=== PATIENT | male | born 1930 | race Caucasian/White ===

== ENCOUNTER 2016-05-09 02:34 | Inpatient (IN) | payer MEDICARE, BC ==
[~2016-05-09] VITALS: Ht 180.3 cm; Wt 89.6 kg
[~2016-05-09 02:34] MED LIST: AMBIEN CR 6.26.25 MG PO; APRESOLINE50 MG PO; ASPIRIN81 MG PO; CALCI-CHEW1 TAB.CHEW PO; CALCIUM 500 + D1 TAB PO; COZAAR50 MG PO; DUONEB 2.5-0.5 M3 ML UPD; FERROCITE PLUS1 TAB PO; FISH OIL 1,0001 CA1 PO; FLOMAX0.4 MG PO; HUMULIN R100 U/ML SC; HYDRALAZINE HCL50 MG; HYDRALAZINE HCL50 MG PO; LANTUS INSULIN10 ML SC; LASIX40 MG PO; LEVAQUIN250 MG PO; LEXAPRO20 MG PO; LIPITOR40 MG PO; MELATONIN 3 MG1 TAB PO; MULTIPLE VITAMI1 TA1 PO; NEXIUM40 MG; NEXIUM40 MG PO; NORVASC5 MG PO; PERCOCET 5/3251 TA1 PO; PROZAC10 MG PO; PROZAC20 MG PO; ROZEREM8 MG PO; SINEQUAN50 MG PO; STOOL SOFTENER250 MG PO; SUPER B COMPLE150 MG PO; THIAMINE HCL50 MG PO; TRAZODONE HCL50 MG PO; ULTRAM50 MG PO; VITAMIN B-1000 MCG/M SQ
[2016-05-09 03:09] LABS: BASOPHILS 0.1 % (0.0-2.0); EOSINOPHILS 0.4 % (0-7); HEMATOCRIT 34.8 % (42.0-54.0); HEMOGLOBIN 11.7 g/dL (13.5-17.5); IMMATURE GRANULOCYTES 0.4 % (0-5); MCH 31.3 pg (26.0-34.0); MCHC 33.6 g/dL (31.0-37.0); MEAN PLATELET VOLUME 9.1 fL (7.4-10.4); MONOCYTES 3.6 % (2-11); NEUTROPHILS 91.5 % (40-80); PLATELET COUNT 160 10x3/uL (130-400); RBC 3.74 10x6/uL (4.20-6.10); RDW 13.2 % (11.5-14.5); WBC 19.8 10x3/uL (4.8-10.8)
[2016-05-09 03:19] LABS: ALBUMIN 2.9 g/dL (3.4-5.0); ANION GAP 14.4 mmol/L (8-16); BILIRUBIN - TOTAL 0.46 mg/dL (0.2-1.3); CALCIUM 8.8 mg/dL (8.5-10.1); CARBON DIOXIDE 24.6 mmol/L (21.0-32.0)
[2016-05-09 03:27] LABS: TROPONIN-I 0.025 ng/mL (0.000-0.060)
[2016-05-09 03:50] LABS: APPEARANCE CLEAR (CLEAR); BILIRUBIN NEGATIVE (NEGATIVE); COLOR YELLOW (YELLOW); GLUCOSE 50 mg/dL (NEGATIVE); KETONE NEGATIVE (NEGATIVE); LEUKOCYTE ESTERASE TRACE (NEGATIVE); NITRITE NEGATIVE (NEGATIVE); PH 5.5 (5.0-6.0); PROTEIN 3+ mg/dL (NEGATIVE); UROBILINOGEN NORMAL (NORMAL)
[2016-05-09 03:56] LABS: BACTERIA FEW /hpf (NONE SEEN); EPITHELIAL CELLS 0-5 /hpf (0-5); GRANULAR CAST OCC /lpf (NONE SEEN); HYALINE CAST OCC /lpf (NONE SEEN); RED CELLS - URINE 0-5 /hpf (0-5)
[2016-05-09 04:00] VITALS: BP 181/70
--- NOTE | 2016-05-09 05:07 | NUR ---
RECEIVED FROM ER. PT HAS LEVOFLAXIN INFUSING , IV-L.UPPER ARM, O2-2L, AT BEDSIDE, CALL LIGHT IN REACH, BED IS LOW, SRX2,[id number]/70, P-85, O2-98, R-20, WILL CONTINUE TO MONITOR
[2016-05-09] MEDS ORDERED: LASIX40 MG PO (05:18)
[2016-05-09] MEDS ORDERED: LANTUS SOL100 UNIT/1 SC (05:19)
[2016-05-09] MEDS ORDERED: MELATONIN 10 M1 EACH PO (05:20)
[2016-05-09] MEDS ORDERED: PRAVACHOL40 MG PO (05:21)
[2016-05-09] MEDS ORDERED: NORTRIPTYLINE H50 MG PO (05:21)
[2016-05-09] MEDS ORDERED: VITAMIN B-1100 M1 PO (05:22)
--- NOTE | 2016-05-09 05:59 | NUR ---
NO CHANGES FROM PREVIOUS ASSESSMENT, CALL LIGHT IN REACH. WILL CONTINUE WITH PLAN OF CARE.
--- NOTE | 2016-05-09 06:20 | NUR ---
SCD ON BILATERAL LEGS, TELEMTRY ON, BED ALARM ON, WILL CONTINUE TO MONITOR
--- NOTE | 2016-05-09 07:30 | NUR ---
RESTING QUIETLY DENIES ANY NEEDS OR DISCOMFORT
--- NOTE | 2016-05-09 07:59 | NUR ---
ASSESSMENT DONE. PT A/O, WATCHING TV. DENIES SOB. WEARING O2 @ 2L VIA NC. WEARING SCD'S. PT ASKED IF HE COULD "GET UP" WITH SCD'S ON. NURSE INSTRUCTED PT TO CALL BEFORE ATTEMPTING TO GET OUT OF BED. BED ALARM ON. PT DENIES NEEDS AT THIS TIME. CALL LIGHT WITH IN REACH. WILL CONT. TO MONITOR.
[2016-05-09 08:15] VITALS: BP 165/74
--- NOTE | 2016-05-09 11:23 | NUR ---
PT LAYING IN BED WATCHING TV. HOB SLIGHTLY ELEVATED. PT STATES "THE IN THE ER SAID I WOULD BE OUT OF HERE BY 4:OO TODAY." PT STATES "I CAN'T DO THIS MUCH LONGER." HE WANTS TO GO HOME. NURSE EMPTIED URINAL, AND ASSISTED PT WITH ADJUSTING HIMSELF IN BED. DENIES OTHER NEEDS AT THIS TIME. CALL LIGHT WITH IN REACH. WILL CONT. TO MONITOR.
[2016-05-09 12:05] VITALS: BP 168/61
--- NOTE | 2016-05-09 14:44 | NUR ---
NOTIFIED PT OF THE URINE STUDIES THAT WERE ORDERED. NURSE TOOK NEW URINAL INTO ROOM FOR PT TO USE.
[2016-05-09 15:51] LABS: ERYTHROCYTE SEDIMENTATION RATE 30 mm/hr (0-20)
[2016-05-09 16:30] VITALS: BP 168/67
[2016-05-09 17:20] LABS: CREATININE - URINE 66.4 mg/dL (30-125)
[2016-05-09 17:22] LABS: APPEARANCE CLEAR (CLEAR); BILIRUBIN NEGATIVE (NEGATIVE); COLOR YELLOW (YELLOW); GLUCOSE NEGATIVE (NEGATIVE); KETONE NEGATIVE (NEGATIVE); LEUKOCYTE ESTERASE TRACE (NEGATIVE); NITRITE NEGATIVE (NEGATIVE); PROTEIN 1+ mg/dL (NEGATIVE); UROBILINOGEN NORMAL (NORMAL)
[2016-05-09 17:25] LABS: BACTERIA FEW /hpf (NONE SEEN); RED CELLS - URINE 0-5 /hpf (0-5)
--- NOTE | 2016-05-09 17:33 | NUR ---
PT LAYING IN BED. AWAKE AND VISITING WITH FAMILY. NO DISTRESS NOTED. CALL LIGHT WITH IN REACH. WILL CONT. TO MONITOR.
[2016-05-09 17:37] LABS: PRO/CRE RATIO URINE 6.1 mg/g; PROTEIN - URINE 402.1 mg/dL (0.0-11.9)
--- NOTE | 2016-05-09 19:43 | NUR ---
RESUMED CARE OF PT, IV-L. UPPER ARM-BANANA BAG -50, [id number], SCD ARE ON, BED ALARM ON, CALL LIGHT IN REACH, BED IS LOW, SRX2
[2016-05-09 21:09] VITALS: BP 188/90
[2016-05-09 23:48] VITALS: BP 169/67
--- NOTE | 2016-05-10 03:55 | NUR ---
AWAKE VOIDED 500 CC OF CLEAR URINE. NO DISTRESS NOTED.
[2016-05-10 05:07] LABS: BASOPHILS 0.2 % (0.0-2.0); EOSINOPHILS 0.9 % (0-7); HEMATOCRIT 35.8 % (42.0-54.0); HEMOGLOBIN 11.9 g/dL (13.5-17.5); IMMATURE GRANULOCYTES 0.3 % (0-5); LYMPHOCYTES 6.2 % (15-50); MCH 31.2 pg (26.0-34.0); MCHC 33.2 g/dL (31.0-37.0); MEAN PLATELET VOLUME 9.7 fL (7.4-10.4); MONOCYTES 6.3 % (2-11); NEUTROPHILS 86.1 % (40-80); PLATELET COUNT 172 10x3/uL (130-400); RBC 3.81 10x6/uL (4.20-6.10); RDW 13.5 % (11.5-14.5)
[2016-05-10 05:12] VITALS: BP 130/68
[2016-05-10 05:12] LABS: ANION GAP 14.8 mmol/L (8-16); CALCIUM 9.2 mg/dL (8.5-10.1); CARBON DIOXIDE 25.5 mmol/L (21.0-32.0); CREATININE - SERUM 2.7 mg/dL (0.6-1.3)
[2016-05-10 05:13] LABS: POTASSIUM - SERUM 3.3 mmol/L (3.5-5.1)
--- NOTE | 2016-05-10 07:00 | NUR ---
PT. WAS RECEIVED AT THE BEGINNING OF THIS SHIFT IN BED AWAKE AND ORIENTED X 3. AT BEDSIDE. LEFT UPPER ARM IV WITH FLUIDS RUNNING PER PUMP AT PRESCRIBED RATE OF FLOW. NO VOICED COMPLAINTS AT THIS TIME. WILL BE MONITORING PT. AND ASSISTING PRN WITH ADL'S. NO SIGNS OF ANY DISCOMFORT OR DISTRESS.
[2016-05-10 08:31] VITALS: BP 178/83
[2016-05-10 11:42] VITALS: BP 173/64
[2016-05-10 13:34] VITALS: Ht 180.3 cm; Wt 89.6 kg
--- NOTE | 2016-05-10 13:44 | NUR ---
Rehab Note- Prescreen Order received. Spoke with the patient & his . The patient is interested in doing outpatient therapy but does not want to stay in the hospital for therapy. Spoke with MARY- Maggie [facility] Earl. Thank you for this referral! Karly Moran RN Clinical Liaison, [facility]
--- NOTE | 2016-05-10 14:15 | NUR ---
PT'S IV FLUIDS HAVE BEEN DC'D. PT IS READY TO GO HOME AND ASKS THE SAME QUESTION EACH TIME HE SEES ME, "WHEN AM I BEING DISCHARGED"
[2016-05-10 14:22] LABS: SPE - ALBUMIN 3.2 g/dL (2.9-4.4); SPE - ALPHA-1 GLOBULIN 0.3 g/dL (0.0-0.4); SPE - ALPHA-2 GLOBULIN 0.9 g/dL (0.4-1.0); SPE - BETA GLOBULIN 1.1 g/dL (0.7-1.3); SPE - GAMMA GLOBULIN 0.9 g/dL (0.4-1.8); SPE - M-SPIKE Not Observed g/dL (Not Observed); SPE - TOTAL PROTEIN 6.3 g/dL (6.0-8.5)
[2016-05-10 15:51] VITALS: BP 181/86
--- NOTE | 2016-05-10 17:50 | NUR ---
SPOKE WITH FILIPPO ROSAS APN REGARDING RESULTS OF CAROTID DOPPLER PER [facility] REQUEST FOR NEED OF CTA CAROTIDS. FILIPPO STATES SHE WILL LET DR. ANGELO KNOW BUT, SHE FELT LIKE HE WOULD NOT WANT CTA AT THIS TIME DUE TO CREATININE.
[2016-05-10 19:00] VITALS: BP 140/72
--- NOTE | 2016-05-10 19:30 | NUR ---
RECEIVED PT IN BED WATCHING TV DENIES ANY NEEDS PT HAS MODERATE ANXIETY AT BEDSIDE
--- NOTE | 2016-05-10 20:01 | NUR ---
ATIVAN 0.5 MG GIVEN SIVP FOR ANXIETY
--- NOTE | 2016-05-10 21:45 | NUR ---
FSBS 170 2 UNITS OF HUMALOG GIVEN SQ TO ABD
[2016-05-11] VITALS: BP 139/76
[2016-05-11 04:00] VITALS: BP 161/61
[2016-05-11 05:47] LABS: BASOPHILS 0.2 % (0.0-2.0); EOSINOPHILS 2.9 % (0-7); HEMATOCRIT 37.4 % (42.0-54.0); HEMOGLOBIN 12.3 g/dL (13.5-17.5); IMMATURE GRANULOCYTES 0.3 % (0-5); LYMPHOCYTES 7.3 % (15-50); MCH 31.3 pg (26.0-34.0); MCHC 32.9 g/dL (31.0-37.0); MCV 95.2 fL (80.0-100.0); MEAN PLATELET VOLUME 9.4 fL (7.4-10.4); NEUTROPHILS 82.3 % (40-80); PLATELET COUNT 183 10x3/uL (130-400); RBC 3.93 10x6/uL (4.20-6.10); RDW 13.5 % (11.5-14.5); WBC 12.5 10x3/uL (4.8-10.8)
[2016-05-11 05:54] LABS: ANION GAP 14.6 mmol/L (8-16); CALCIUM 9.4 mg/dL (8.5-10.1); CARBON DIOXIDE 25.2 mmol/L (21.0-32.0); CREATININE - SERUM 2.7 mg/dL (0.6-1.3); MAGNESIUM - SERUM 2.2 mg/dL (1.8-2.4); PHOSPHOROUS 3.5 mg/dL (2.5-4.9)
[2016-05-11 05:56] LABS: POTASSIUM - SERUM 3.8 mmol/L (3.5-5.1)
--- NOTE | 2016-05-11 06:04 | NUR ---
GLUCOSE 145
[2016-05-11 07:39] VITALS: BP 155/65
--- NOTE | 2016-05-11 08:49 | NUR ---
ENTERED ROOM TO GIVE MEDS, FOUND PATIENT CHOKING ON FOOD. SAT PATIENT UP IN BED. PATIENT COUGHING BUT UNABLE TO BE PRODUCTIVE. SUCTIONED PATIENT WITH YANKAUER AND OBTAINED YELLOW THICK SPUTUM. WILL SEE ABOUT SWALLOWING EVAL.
--- NOTE | 2016-05-11 11:30 | NUR ---
Patient Name: ELSA IRVING Admission Status: ER Accout number: [id number] Admission Date: 05-09-2016 : 1930 Admission Diagnosis: Attending: MAMTA Current LOS: 2 Anticipated DC Date: Planned Disposition: Home with Home Health Primary Insurance: MEDICARE A & B Discharge Planning Comments: * Is the patient Alert and Oriented? Yes 0 * How many steps to enter\exit or inside your home? 1 0 * PCP DR. TABARES 0 * Pharmacy [facility] 0 * Preadmission Environment Home with Family 0 * ADLs Partial Dependent 0 * Partial ADLs (Assistance needed) Medication Management 0 * Equipment Cane CPAP Oxygen Rolling Walker Walker 0 * Other Equipment NIGHTTIME OXYGEN ONLY [facility], MEDICAL EQUIPMENT PROVIDER 0 * List name and contact numbers for known caregivers / representatives who currently or will assist patient after discharge: MARYANA IRVING, SPOUSE, 0 * Community resources currently utilized None 0 * Please name any agencies selected above. NONE 0 * Additional services required to return to the preadmission environment? Yes * Can the patient safely return to the preadmission environment? Yes 0 * Has this patient been hospitalized within the prior 30 days at any hospital? No 0 CM MET WITH PT AND SPOUSE IN ROOM TO DISCUSS DISCHARGE PLANNING AND NEEDS. PT REPORTS LIVING AT HOME PARTIALLY DEPENDENT UPON HIS SPOUSE. PT REPORTS HAVING ALL NEEDED MEDICAL EQUIPMENT PROVIDED BY [facility]. PT HAS NO CURRENT OUTSIDE SERVICES ASSISTING IN THE HOME. CM DISCUSSED AVAILABILITY OF HOME HEALTH, REHAB SERVICES AND MEDICAL EQUIPMENT. CM DISCUSSED ORDER FOR INPATIENT OR NURSING HOME RHEAB. PT REPORTS HE IS NOT GOING TO NURSING HOME REHAB NOR INPATIENT REHAB. PT'S SPOUSE ENCOURAGE PT TO CONSIDER REHAB PRIOR TO RETURNING HOME, PT REFUSED. PT WILL ACCEPT HOME HEALTH, CHOSE [facility]; CHOICE SIGNED. PT REPORTS HIS SPOUSE WILL PICK HIM UP FOR DISCHARGE HOME. IMPORTANT MESSAGE FROM MEDICARE PROVIDED AND EXPLAINED. PT REFUSES NURSING HOME OR INPATIENT REHAB. HE WILL ACCEPT HOME HEALTH WITH [facility]. CM TO ARRANGE HOME HEALTH WITH [facility] ORDERS. CM WILL ALSO ARRANGE PORTABLE OXYGEN WITH [facility], IF QUALIFYING TESTING IS PERFORMED WITHIN 48 HOURS OF DISCHARGE AND WITH [facility] ORDER. (PT HAS HOME OXYGEN, NO PORTABLE). CM TO CONTINUE TO FOLLOW AND ASSIST NEEDED. Proposal Manager Writer: Romain Noel
[2016-05-11 11:38] VITALS: BP 162/78
--- NOTE | 2016-05-11 13:31 | NUR ---
PLACED 16F COTTON TO GRAVITY DRAIN PER ORDER. INFLATED BALLOON WITH 10CC SALINE. USED STERILE TECHNIQUE. A RETURN OF 60CC CLEAR YELLOW URINE NOTED. TOLERATED WELL
[2016-05-11 15:25] VITALS: BP 147/64
--- NOTE | 2016-05-11 17:23 | NUR ---
AT BEDSIDE. WILL CONTINUE TO MONITOR
--- NOTE | 2016-05-11 18:12 | NUR ---
RESUME CARE OF PT, IV-LFA-SL, CHECK BLOODSUGAR 124-NO COVERAGE NEEDED, AT BEDSIDE, PT HAS COTTON, CALL LIGHT IN REACH, BED IS LOW, SRX2
--- NOTE | 2016-05-11 19:27 | NUR ---
COTTON BAD HAD LEAK, REPLACE BAG
[2016-05-11 20:08] LABS: UPE RAND - ALBUMIN 64.9 % (()); UPE RAND - ALPHA 1 GLOBULIN 8.1 % (()); UPE RAND - ALPHA 2 GLOBULIN 6.3 % (()); UPE RAND - BETA GLOBULIN 10.8 % (())
[2016-05-11 22:54] VITALS: BP 154/72
[2016-05-12 00:30] VITALS: BP 163/70
--- NOTE | 2016-05-12 01:31 | NUR ---
LYING IN BED, CALL LIGHT IN REACH. WILL CONTINUE WITH PLAN OF CARE.
--- NOTE | 2016-05-12 04:32 | NUR ---
IV ANTIBONIC IN FUSING
[2016-05-12 05:23] VITALS: BP 157/74
[2016-05-12 05:59] LABS: BASOPHILS 0.2 % (0.0-2.0); EOSINOPHILS 3.6 % (0-7); HEMATOCRIT 35.4 % (42.0-54.0); HEMOGLOBIN 11.7 g/dL (13.5-17.5); IMMATURE GRANULOCYTES 0.2 % (0-5); LYMPHOCYTES 7.2 % (15-50); MCH 31.5 pg (26.0-34.0); MCHC 33.1 g/dL (31.0-37.0); MCV 95.4 fL (80.0-100.0); MEAN PLATELET VOLUME 9.3 fL (7.4-10.4); MONOCYTES 8.7 % (2-11); NEUTROPHILS 80.1 % (40-80); PLATELET COUNT 186 10x3/uL (130-400); RBC 3.71 10x6/uL (4.20-6.10); RDW 13.5 % (11.5-14.5); WBC 11.3 10x3/uL (4.8-10.8)
[2016-05-12 06:31] LABS: ANION GAP 14.2 mmol/L (8-16); CALCIUM 9.4 mg/dL (8.5-10.1); CARBON DIOXIDE 26.6 mmol/L (21.0-32.0); CREATININE - SERUM 2.9 mg/dL (0.6-1.3); PHOSPHOROUS 4.3 mg/dL (2.5-4.9); POTASSIUM - SERUM 3.8 mmol/L (3.5-5.1)
[2016-05-12 08:00] VITALS: BP 141/70
[2016-05-12 12:00] VITALS: BP 152/66
[2016-05-12] MEDS ORDERED: LEVAQUIN250 MG PO (15:20)
--- NOTE | 2016-05-12 15:45 | NUR ---
D/CD COTTON ORDERED.
--- NOTE | 2016-05-12 16:24 | NUR ---
Patient Name: ELSA IRVING Encounter No: [id number] : 1930 Primary Insurance: MEDICARE A & B Anticipated DC Date: 05-11-2016 Planned Disposition: Home with Home Health External Planned Provider: [facility] DCP follow-up note: CM MET WITH PT IN ROOM TO DISCUSS DISCHARGE NEEDS AND PLANNING. CM DISCUSSED AVAILABILITY OF HOME HEALTH, REHAB SERVICES AND MEDICAL EQUIPMENT. PT WANTS [facility]. SPOUSE TO TRANSPORT HOME AT DISCHARGE. HOME HEALTH ORDER OBTAINED. CM CALLED [facility], , PROVIDED REFERRAL FOR [facility] WHO WILL ARRANGE FOLLOW UP FOR MONDAY; CM FAXED REFERRAL TO [facility] AT [phone]. PT NOTIFIED. NO FURTHER DISCHARGE NEEDS IDENTIFIED. Romain Noel, CASE MANAGEMENT
--- NOTE | 2016-05-12 17:39 | NUR ---
D/C SALINE LOCK IN LT FOREARM. DISCHARGE INSTRUCTIONS EXPLAINED TO AND GIVEN TO . PT ALERT AND CONFUSED TO TIME AND SIUATION.
--- NOTE | 2016-05-12 17:58 | NUR ---
D.C HOME VIA WHEELCHAIR.
--- NOTE | 2016-06-20 12:39 | DS ---
PATIENT:ELSA IRVING :[birth year] MEDICAL RECORD: [id number] DISCHARGE SUMMARY ADMISSION DATE: 05/09/16 DISCHARGE DATE: 05/12/16 DISCHARGE DIAGNOSES: 1. Diabetic nephropathy. 2. DT. 3. Pneumonia. 4. Leukocytosis. 5. Urinary tract infection. 6. Obstructive sleep apnea. 7. Elevated D-dimer. 8. Chronic obstructive pulmonary disease. 9. Coronary artery disease. 10. Chronic kidney disease IV. 11. Hypertension. CONSULTS: Dr. De La Garza. HOSPITAL COURSE: This 85-year-old male patient with chronic kidney disease IV was admitted to the hospital with shortness of breath and thought to have pneumonia. He had an elevated creatinine up to 3, his baseline is around 2. Nephrology was consulted. He was treated with IV fluids and antibiotics. He had a little prerenal azotemia in lieu of his infectious process. Dr. Hernadez was consulted during the patient's hospitalization with some carotid artery stenosis. They underwent a swallow evaluation and it did not show any dysphagia. Chest x-ray showed mild vascular congestion. Renal ultrasound showed 160 cc of residual urine with some poor definition in the renal cortex consistent with chronic renal changes but no evidence of hydronephrosis. The carotid Dopplers showed a prominent plaque in the right carotid at about 70 percent. The venous Dopplers were negative for DVTs. MRA of the neck showed significant stenosis in the right ICA at least 60%. 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 His condition improved and he was thought to be stable for discharge to home with home health. The patient's creatinine was too high for a CTA. Once his creatinine had improved, they would do it in the outpatient setting to discuss possible surgical options. He was stable for discharge to the nursing help and rehabilitation. See med rec. TRANSINT:[id number] Voice Confirmation ID: [id number] DOCUMENT ID: [id number] Dictated By: ULISSES TATE I have interviewed/examined the above patient and agree with these documented findings. KETTY WILSON MD at 1233 at 1238 CC: [id number] DICTATION DATE: 06/16/16 0838 BUSINESS ANALYST PROJECT MANAGER: 06/17/16 0005 DIS IN 05/12/16 [facility] [address] [place] [address]
== END 2016-05-12 17:45 | disposition home health service (06) | DRG 190 ==
LOC: D.ER 02:34 → D.M2 04:14
PROVIDERS: Family Medicine; Internal Medicine Nephrology; ADMIT Family Medicine
PROC: 0T9B70Z Drainage of Bladder with Drainage Device, Via Natural or Artificial Opening (ICD-10-PCS; principal; 2016-05-11)
DX: J44.0 Chronic obstructive pulmonary disease with (acute) lower respiratory infection (principal); J18.9 Pneumonia, unspecified organism; N17.9 Acute kidney failure, unspecified; N39.0 Urinary tract infection, site not specified; N18.4 Chronic kidney disease, stage 4 (severe); R41.82 Altered mental status, unspecified; J44.9 Chronic obstructive pulmonary disease, unspecified; I65.21 Occlusion and stenosis of right carotid artery; E11.22 Type 2 diabetes mellitus with diabetic chronic kidney disease; I12.9 Hypertensive chronic kidney disease with stage 1 through stage 4 chronic kidney disease, or unspecified chronic kidney disease; Z72.89 Other problems related to lifestyle; G47.33 Obstructive sleep apnea (adult) (pediatric); F32.9 Major depressive disorder, single episode, unspecified

== ENCOUNTER → 2016-06-09 08:36 | Outpatient (CLI) | payer MEDICARE, BC ==
[2016-05-10 13:34] VITALS: BMI 30.3
[~2016-06-09 08:36] MED LIST changes: +LANTUS SOL100 UNIT/1 SC; +MELATONIN 10 M1 EACH PO; +NORTRIPTYLINE H50 MG PO; +PRAVACHOL40 MG PO; +VITAMIN B-1100 M1 PO
== END | disposition home or self-care (01) ==
LOC: D.RAD 08:36
DX: R06.02 Shortness of breath (principal)

== ENCOUNTER 2016-08-18 17:21 | Observation (INO) | payer MEDICARE, BC ==
[~2016-08-18] VITALS: Ht 180.3 cm; Wt 106.6 kg
[2016-08-18 17:56] LABS: APPEARANCE CLEAR (CLEAR); BILIRUBIN NEGATIVE (NEGATIVE); COLOR STRAW (YELLOW); GLUCOSE 50 mg/dL (NEGATIVE); KETONE NEGATIVE (NEGATIVE); LEUKOCYTE ESTERASE NEGATIVE (NEGATIVE); NITRITE NEGATIVE (NEGATIVE); PROTEIN 3+ mg/dL (NEGATIVE); SPECIFIC GRAVITY 1.005 (1.005-1.020); UDS - AMPHET NEGATIVE QUAL (NEGATIVE); UDS - BARB NEGATIVE QUAL (NEGATIVE); UDS - BENZO NEGATIVE QUAL (NEGATIVE); UDS - COCAINE NEGATIVE QUAL (NEGATIVE); UDS - METH NEGATIVE QUAL (NEGATIVE); UDS - OPIATE NEGATIVE QUAL (NEGATIVE); UDS - PCP NEGATIVE QUAL (NEGATIVE); UDS - THC NEGATIVE QUAL (NEGATIVE); UROBILINOGEN NORMAL (NORMAL)
[2016-08-18 17:57] LABS: BACTERIA MODERATE /hpf (NONE SEEN); EPITHELIAL CELLS 0-5 /hpf (0-5); RED CELLS - URINE 0-5 /hpf (0-5); WHITE CELLS - URINE 0-5 /hpf (0-5)
[2016-08-18 17:57] LABS: BASOPHILS 0.5 % (0-2); EOSINOPHILS 3.2 % (0-7); HEMATOCRIT 31.8 % (42.0-54.0); HEMOGLOBIN 10.9 g/dL (13.5-17.5); IMMATURE GRANULOCYTES 0.6 % (0-5); LYMPHOCYTES 14.1 % (15-50); MCH 32.1 pg (26.0-34.0); MCHC 34.3 g/dL (31.0-37.0); MCV 93.5 fL (80.0-100.0); MEAN PLATELET VOLUME 8.8 fL (7.4-10.4); MONOCYTES 14.7 % (2-11); NEUTROPHILS 66.9 % (40-80); PLATELET COUNT 177 10x3/uL (130-400); RDW 13.6 % (11.5-14.5); WBC 7.9 10x3/uL (4.8-10.8)
[2016-08-18 18:16] LABS: ALBUMIN 2.8 g/dL (3.4-5.0); ANION GAP 12.6 mmol/L (8-16); BILIRUBIN - TOTAL 0.3 mg/dL (0.2-1.3); CALCIUM 8.4 mg/dL (8.5-10.1); CARBON DIOXIDE 26.2 mmol/L (21.0-32.0); CREATININE - SERUM 2.5 mg/dL (0.6-1.3); PROTEIN - SERUM 6.6 g/dL (6.4-8.2); TROPONIN-I 0.032 ng/mL (0.000-0.060)
[2016-08-18 18:19] LABS: POTASSIUM - SERUM 2.8 mmol/L (3.5-5.1)
--- NOTE | 2016-08-18 20:47 | NUR ---
REPORT RECEIVED FROM PHARMACY OPERATIONS SPECIALISTPRIMO LEOS.
[2016-08-18] MEDS ORDERED: SINEQUAN50 MG PO (21:17)
[2016-08-18] MEDS ORDERED: VENTOLIN HFA18 GM INH (21:19)
[2016-08-18] MEDS ORDERED: ALBUTEROL0.63 MG/3 (21:20)
[2016-08-18] MEDS ORDERED: PROZAC20 MG PO (21:21)
[2016-08-18] MEDS ORDERED: PROAIR HFA8.5 GM INH (21:22)
[2016-08-18] MEDS ORDERED: BROMFED-DM COU473 ML PO (21:23)
[2016-08-18 21:25] VITALS: BP 167/70; BMI 32.8
[2016-08-18 23:00] VITALS: BP 120/56
--- NOTE | 2016-08-18 23:00 | NUR ---
PT RECEIVED AWAKE, ALERT, AT BEDSIDE. PT IS CONFUSED AND VERY HARD OF HEARING. 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 DID PROVIDE CURRENT MED LIST. PT DENIES ANY NEEDS, WILL BE STAYING WITH HIM OVERNIGHT. BED LOW, CALL LIGHT IN REACH, SIDE RAILS X 2, HOB 15 DEGREES, BED ALARM ON. WILL CONTINUE TO MONITOR CLOSELY.
--- NOTE | 2016-08-19 00:52 | NUR ---
PT LYING IN BED ON RIGHT SIDE, EYES CLOSED, RESPIRATIONS EVEN AND UNLABORED. AT BEDSIDE. CONTINUE TO MONITOR CLOSELY. BED LOW, CALL LIGHT IN REACH, SIDE RAILS X 2, HOB 10 DEGREES. BED ALARM ON.
[2016-08-19 06:42] VITALS: BP 142/71
[2016-08-19 07:56] VITALS: BP 159/74
[2016-08-19 12:15] LABS: BASOPHILS 0.2 % (0-2); EOSINOPHILS 0.5 % (0-7); HEMATOCRIT 30.8 % (42.0-54.0); HEMOGLOBIN 10.7 g/dL (13.5-17.5); IMMATURE GRANULOCYTES 0.4 % (0-5); LYMPHOCYTES 9.3 % (15-50); MCH 32.7 pg (26.0-34.0); MCHC 34.7 g/dL (31.0-37.0); MCV 94.2 fL (80.0-100.0); MONOCYTES 5.3 % (2-11); NEUTROPHILS 84.3 % (40-80); PLATELET COUNT 174 10x3/uL (130-400); RBC 3.27 10x6/uL (4.20-6.10); RDW 13.6 % (11.5-14.5)
[2016-08-19 12:22] VITALS: Ht 180.3 cm; Wt 106.6 kg
[2016-08-19 12:24] LABS: ANION GAP 10.6 mmol/L (8-16); CALCIUM 8.5 mg/dL (8.5-10.1); CARBON DIOXIDE 31.1 mmol/L (21.0-32.0); CREATININE - SERUM 2.6 mg/dL (0.6-1.3)
--- NOTE | 2016-08-19 12:25 | NUR ---
ASSISTED GEOTHERMAL POWERPLANT MECHANIC IN PULLING PT UP IN BED. PT IS EATING LUNCH AND DENIES ANY CURRENT PAIN OR NEEDS BUT HIM AND HIS STATE THEY ARE READY TO BE DISCHARGED. WILL CTM AND CONTINUE WITH ORDERS.
[2016-08-19 12:26] LABS: POTASSIUM - SERUM 3.7 mmol/L (3.5-5.1)
[2016-08-19 12:38] VITALS: BP 170/75
[2016-08-19 12:40] LABS: WBC 10.2 10x3/uL (4.8-10.8)
--- NOTE | 2016-08-19 14:02 | NUR ---
PT AMBULATED WITH THERAPY USING HIS WALKER. PT WAS VERY WEAK AND SLOW BUT STAYED STEADY. PT BACK IN BED AND RESTING WITH HIS AT BEDSIDE. NO FURTHER NEEDS AT THIS TIME. WILL CPOC.
[2016-08-19 15:42] VITALS: BP 159/82
--- NOTE | 2016-08-19 16:51 | NUR ---
DISCHARGE TEACHING PROVIDED AND PAPERS SIGNED. PT AND DENY ANY FURTHER QUESTIONS OR NEEDS.
== END 2016-08-19 16:54 | disposition home or self-care (01) ==
LOC: D.ER 17:21 → OBSVTIME 19:46 → D.M2 19:46
PROVIDERS: Emergency Medicine; ADMIT Family Medicine Adult Medicine
DX: E87.6 Hypokalemia (principal); F10.129 Alcohol abuse with intoxication, unspecified; Y90.7 Blood alcohol level of 200-239 mg/100 ml; E11.22 Type 2 diabetes mellitus with diabetic chronic kidney disease; I12.9 Hypertensive chronic kidney disease with stage 1 through stage 4 chronic kidney disease, or unspecified chronic kidney disease; N18.4 Chronic kidney disease, stage 4 (severe); E11.40 Type 2 diabetes mellitus with diabetic neuropathy, unspecified; J44.9 Chronic obstructive pulmonary disease, unspecified; W19.XXXA Unspecified fall, initial encounter; Z87.891 Personal history of nicotine dependence

== ENCOUNTER → 2016-08-31 07:57 | Outpatient (CLI) | payer MEDICARE, BC ==
[2016-08-19 12:22] VITALS: BMI 32.7
[~2016-08-31 07:57] MED LIST changes: +ALBUTEROL0.63 MG/3; +BROMFED-DM COU473 ML PO; +PROAIR HFA8.5 GM INH; +VENTOLIN HFA18 GM INH
== END | disposition home or self-care (01) ==
LOC: D.RT 08-23 11:00 → D.LAB 08-23 13:00 → D.RAD 08-23 13:15 → D.RT 08-25 09:00
DX: J44.9 Chronic obstructive pulmonary disease, unspecified (principal)

== ENCOUNTER → 2016-09-23 14:30 | Outpatient (CLI) | payer MEDICARE, BC ==
[2016-08-19 12:22] VITALS: BMI 32.7
[2016-09-23 15:00] LABS: BASOPHILS 0.4 % (0-2); EOSINOPHILS 4.2 % (0-7); HEMATOCRIT 31.7 % (42.0-54.0); HEMOGLOBIN 10.8 g/dL (13.5-17.5); IMMATURE GRANULOCYTES 0.1 % (0-5); LYMPHOCYTES 15.2 % (15-50); MCH 32.6 pg (26.0-34.0); MCHC 34.1 g/dL (31.0-37.0); MCV 95.8 fL (80.0-100.0); MONOCYTES 6.7 % (2-11); NEUTROPHILS 73.4 % (40-80); PLATELET COUNT 176 10x3/uL (130-400); RBC 3.31 10x6/uL (4.20-6.10); RDW 13.1 % (11.5-14.5); WBC 7.2 10x3/uL (4.8-10.8)
[2016-09-23 16:02] LABS: ERYTHROCYTE SEDIMENTATION RATE 50 mm/hr (0-20)
== END | disposition home or self-care (01) ==
LOC: D.LAB 14:30 → D.CT 15:00
PROVIDERS: Internal Medicine Cardiovascular Disease
DX: I65.29 Occlusion and stenosis of unspecified carotid artery (principal)

== ENCOUNTER 2016-10-03 11:18 | Outpatient (CLI) | payer MEDICARE, BC ==
[~2016-10-03] VITALS: Ht 180.3 cm; Wt 104.5 kg
[2016-10-03 12:36] VITALS: BP 161/91; Ht 180.3 cm; Wt 104.5 kg
[2016-10-03] MEDS ORDERED: NAC600 MG PO (12:51)
--- NOTE | 2016-10-03 16:48 | NUR ---
1525 IV INFUSION HAS COMPLETED, TO CT VIA WC. 1540 PT.'S IV DC'D WITH CATH INTACT IN XRAY AND DC'D FROM XRAY. NO POST CT THERAPY NEEDED. PT. RELEASED FROM XRAY. DID NOT RETURN TO OPS.
== END 2016-10-03 15:40 | disposition home or self-care (01) ==
LOC: D.CT 11:18
DX: I65.23 Occlusion and stenosis of bilateral carotid arteries (principal)

== ENCOUNTER 2016-10-28 17:38 | Inpatient (IN) | payer MEDICARE, BC ==
[~2016-10-28] VITALS: Ht 180.3 cm; Wt 96.2 kg
[~2016-10-28 17:38] MED LIST changes: +NAC600 MG PO
[2016-10-28 18:07] LABS: APPEARANCE CLEAR (CLEAR); BILIRUBIN NEGATIVE (NEGATIVE); COLOR YELLOW (YELLOW); GLUCOSE NEGATIVE (NEGATIVE); KETONE NEGATIVE (NEGATIVE); LEUKOCYTE ESTERASE NEGATIVE (NEGATIVE); NITRITE NEGATIVE (NEGATIVE); PROTEIN 3+ mg/dL (NEGATIVE); SPECIFIC GRAVITY 1.015 (1.005-1.020); UROBILINOGEN NORMAL (NORMAL)
[2016-10-28 18:10] LABS: WHITE CELLS - URINE 0-5 /hpf (0-5)
[2016-10-28 18:14] LABS: UDS - AMPHET NEGATIVE QUAL (NEGATIVE); UDS - BARB NEGATIVE QUAL (NEGATIVE); UDS - BENZO NEGATIVE QUAL (NEGATIVE); UDS - COCAINE NEGATIVE QUAL (NEGATIVE); UDS - METH NEGATIVE QUAL (NEGATIVE); UDS - OPIATE NEGATIVE QUAL (NEGATIVE); UDS - PCP NEGATIVE QUAL (NEGATIVE); UDS - THC NEGATIVE QUAL (NEGATIVE)
[2016-10-28 19:00] VITALS: BP 191/86
[2016-10-28 19:15] LABS: BASOPHILS 0.4 % (0-2); EOSINOPHILS 3.4 % (0-7); HEMATOCRIT 31.7 % (42.0-54.0); HEMOGLOBIN 10.6 g/dL (13.5-17.5); IMMATURE GRANULOCYTES 0.3 % (0-5); LYMPHOCYTES 9.9 % (15-50); MCH 32.3 pg (26.0-34.0); MCHC 33.4 g/dL (31.0-37.0); MCV 96.6 fL (80.0-100.0); MEAN PLATELET VOLUME 9.3 fL (7.4-10.4); MONOCYTES 7.3 % (2-11); NEUTROPHILS 78.7 % (40-80); PLATELET COUNT 192 10x3/uL (130-400); RBC 3.28 10x6/uL (4.20-6.10); RDW 12.9 % (11.5-14.5); WBC 10.6 10x3/uL (4.8-10.8)
[2016-10-28 19:29] LABS: ALBUMIN 3.3 g/dL (3.4-5.0); ALKALINE PHOSPHATASE 77 U/L (46-116); ALT (SGPT) 23 U/L (10-68); BILIRUBIN - TOTAL 0.29 mg/dL (0.2-1.3); CALC OSMOLALITY 291 mosm/kg (275-300); CARBON DIOXIDE 17.2 mmol/L (21.0-32.0); CHLORIDE - SERUM 102 mmol/L (98-107); CREATININE - SERUM 2.9 mg/dL (0.6-1.3); PROTEIN - SERUM 7.3 g/dL (6.4-8.2); SODIUM 137 mmol/L (136-145); UREA NITROGEN 63 mg/dL (7-18); eGFR NON AFRICAN AMERICAN 22 mL/min (90-120)
[2016-10-28 19:30] LABS: GLUCOSE 102 mg/dL (74-106)
[2016-10-28 19:35] LABS: CREATINE KINASE 79 UL (21-232); TROPONIN-I < 0.017 ng/mL (0.000-0.060)
--- NOTE | 2016-10-28 21:30 | NUR ---
PT ARRIVES VIA STRETCHER FROM ER ACCOMPANIED BY INDUSTRIAL SERVICER AND PT'S SPOUSE. ASSISTED IN TO BED. PT IS WITH SLURRED SPEECH AND CONFUSED TO PLACE AND SITUATION. PT'S SPOUSE REPORTS PT FELL AT HOME AND SHE FOUND HIM ON THE FLOOR. STATES HE WAS TO BE HERE AT [facility] ON MONDAY FOR STENT TO THE CAROTID ARTERY. LR INFUSING AT 100 ML/HR TO LEFT FOREARM, SITE APPEARS WNL. UNIT ROUTINES AND PROTOCOLS DISCUSSED WITH PT AND HIS SPOUSE, VERBALIZED UNDERSTANDING. PT'S SPOUSE STATES SHE CAN'T STAY WITH PT TONIGHT. FALL PRECAUTIONS IMPLEMENTED AND BED ALARM SET. PT'S SPOUSE STATES SHE WILL BRING PT'S ADVANCE DIRECTIVE AND HOME C-PAP BACK IN AM. CALL LIGHT WITHIN REACH. WILL MONITOR.
[2016-10-28 21:41] VITALS: Ht 180.3 cm; Wt 96.2 kg
[2016-10-28] MEDS ORDERED: MUCINEX DM ER1 EAC1 PO (21:52)
[2016-10-28] MEDS ORDERED: TOPAMAX25 MG PO (21:54)
[2016-10-28] MEDS ORDERED: PLAVIX75 MG PO (21:55)
--- NOTE | 2016-10-28 22:33 | NUR ---
PT RESTING WITHOUT C/O OR DISTRESS NOTED. CALL LIGHT WITHIN REACH. NO NEEDS VERBALIZED. BED ALARM SET. WILL CONTINUE TO MONITOR.
[2016-10-29] VITALS: BP 167/74
--- NOTE | 2016-10-29 00:12 | NUR ---
ASSESSMENT REMAINS UNCHANGED. PT RESTING SOUNDLY WITHOUT C/O OR DISTRESS NOTED. DENIES ANY CURRENT C/O PAIN. WILL CONT TO MONITOR
[2016-10-29 04:00] VITALS: BP 197/91
[2016-10-29 05:40] LABS: ANION GAP 19.4 mmol/L (8-16); CALCIUM 8.9 mg/dL (8.5-10.1); CARBON DIOXIDE 19.3 mmol/L (21.0-32.0); CREATININE - SERUM 2.6 mg/dL (0.6-1.3); POTASSIUM - SERUM 3.7 mmol/L (3.5-5.1)
--- NOTE | 2016-10-29 07:17 | NUR ---
PT LAYING TO R SIDE WITH AT BEDSIDE. PT YELLING AND SCREAMING. WANTS TO BE DC. TRIED TO EXPLAIN TO PT AND PT THAT HE HAS TO BE EVALUATED BY THE DR. PT EXCLAIMS "I AM NOT WAITING FOR SOME [facility] DOCTOR TO SHOW UP! THERE IS NO REASON FOR ME TO EVEN BE HERE I AM GOING HOME!". PT SAID HE WILL WAIT A LITTLE WHILE LONGER AND THEN WANTS TO LEAVE AND "GET THIS THING TAKEN OUT OF MY ARM OR I WILL RIP IT OUT!" (HIS IV)
[2016-10-29 07:42] VITALS: BP 185/80
[2016-10-29] MEDS ORDERED: LIBRIUM25 MG PO (10:56)
[2016-10-29 12:20] VITALS: BP 174/83
--- NOTE | 2016-10-29 12:45 | NUR ---
WENT OVER DC PAPERWORK WITH PT AND PT BOTH VERBALIZE UNDERSTANDING. PIV WAS DC WITH CATH TIP INTACT. SCRIPT FOR LIBRIUM WAS GIVEN TO PT . WHEN TRYING TO GET PT DRESSED TO GO HOME PT STARTING TO REALIZE HOW WEAK HE REALLY IS. WITH MINE AND HELP STILL STRUGGLING TO GET PT FULLY DRESSED R/T WEAKNESS. TRIED TO TALK TO PT ABOUT STAYING AND DOING SOME PHYSICAL THERAPY AND GET IV FLUIDS UNTIL PROCEDURE ON MONDAY AND THEN SEE IF HE WAS BETTER TO GO HOME. PT STATES "I MAY REGRET IT, BUT I WANT TO GO HOME." WEB MASTER WHEELED PT OUT TO FRONT ENTRANCE IN WHEELCHAIR.
== END 2016-10-29 12:56 | disposition home or self-care (01) | DRG 897 ==
LOC: D.ER 17:38 → D.M2 21:05
PROVIDERS: Emergency Medicine; ADMIT Emergency Medicine
DX: F10.129 Alcohol abuse with intoxication, unspecified (principal); N17.9 Acute kidney failure, unspecified; N18.4 Chronic kidney disease, stage 4 (severe); E87.2 Acidosis; Y90.6 Blood alcohol level of 120-199 mg/100 ml; E11.22 Type 2 diabetes mellitus with diabetic chronic kidney disease; I12.9 Hypertensive chronic kidney disease with stage 1 through stage 4 chronic kidney disease, or unspecified chronic kidney disease; Z79.4 Long term (current) use of insulin; E86.0 Dehydration; J44.9 Chronic obstructive pulmonary disease, unspecified; I65.23 Occlusion and stenosis of bilateral carotid arteries; D64.9 Anemia, unspecified; K21.9 Gastro-esophageal reflux disease without esophagitis; F32.9 Major depressive disorder, single episode, unspecified; F41.9 Anxiety disorder, unspecified; Z91.81 History of falling; Z87.891 Personal history of nicotine dependence

== ENCOUNTER 2016-10-31 09:05 | Inpatient (IN) | payer MEDICARE, BC ==
[2016-10-31] VITALS (17 sets, daily range): BP systolic 110–172; BP diastolic 61–93; Ht 177.8 cm; Wt 100.0 kg
[~2016-10-31] VITALS: Ht 177.8 cm; Wt 100.0 kg
--- NOTE | ~2016-10-31 | HEMODYNAMI ---
PATIENT:ELSA IRVING MEDICAL RECORD: [id number] : 34 LOCATION:[facility] D2303 ADMISSION DATE: 10/31/16 Generatedon:10/31/201614:10 Patient name: ELSA IRVING Patient #: [id number] SSN: : Date of study: 10/31/2016 Page: Of Hemodynamic Procedure Report Patient Data Patient Demographics Procedure consent was obtained First Name: ELSA Gender: Male Last Name: ARISTIDES : 1930 [facility] Initial: P Age: 85 year(s) Patient #: [id number] Race: Unknown Additional ID: [id number] Contact details [address]: [address] [place] [address] State: [place] City: [facility] Zip code: [address] Past Medical History Allergies: No known allergies Admission Admission Data Admission Date: 10/31/2016 Admission Time: 9:05 Room #: 2303 Procedure Procedure Types Cath Procedure Peripheral Cath Diagnostic Procedure Cath Peripheral Procedure Description Procedure Date Procedure Date: 10/31/2016 Procedure Start Time: 12:53 Procedure Staff Name Function Renetta Hahn RT Stone Rigger Renetta Hahn RT Monitor Edson Wolf RT Scrub Juan Harris MD Performing Physician Stacy Irene RN Nurse Procedure Data Cath Procedure Fluoroscopy Diagnostic fluoroscopy Total fluoroscopy Time: time: 10.2 min 10.2 min Diagnostic fluoroscopy Total fluoroscopy dose: dose: 1142 mGy 1142 mGy Contrast Material Contrast Material Type Amount (ml) Isovue 300 70 Entry Location Entry Primary Successful Side Size Upsize Upsize Entry Closure Succ essful Closure Location (Fr) 1 (Fr) 2 (Fr) Remarks Device Remarks Femoral Right Angio-VIP artery 6Fr Diagnostic catheters Device Type Used For End Catheter Placement Benjamin Kaye 5Fr 125CM catheter Procedure Medications Medication Administration Route Dosage Versed I.V. 1 mg Fentanyl I.V. 50 mcg Benadryl I.V. 12.5 mg Heparin Bolus I.V. 6000 units Fentanyl I.V. 50 mcg Versed I.V. 1 mg Benadryl I.V. 12.5 mg Hemodynamics Rest Heart Rate: 65 (bpm) Snapshots Pre Cath Intra NCS Post Cath Vital Signs Time Heart Resp SPO2 NIBP (mmHg) Rhythm Pain Sedation Rate (ipm) (%) Status Level (bpm) 12:22:01 72 17 97 180/86(130) NSR 0 (11) 10(A) , No pain 12:26:36 73 18 97 185/92(141) NSR 0 (11) 10(A) , No pain 12:31:10 72 24 99 180/88(154) NSR 0 (11) 10(A) , No pain 12:35:38 72 21 100 186/97(138) NSR 0 (11) 10(A) , No pain 12:40:37 71 14 99 Measuring NSR 0 (11) 10(A) , No pain 12:41:06 89 19 99 189/93(125) NSR 0 (11) 10(A) , No pain 12:45:41 71 12 100 180/90(151) NSR 0 (11) 10(A) , No pain 12:50:09 78 15 99 183/99(153) NSR 0 (11) 10(A) , No pain 12:54:39 71 21 99 179/81(145) NSR 0 (11) 10(A) , No pain 12:59:10 64 15 96 158/83(129) NSR 0 (11) 10(A) , No pain 13:03:36 70 17 96 155/75(114) NSR 0 (11) 10(A) , No pain 13:08:02 72 12 96 150/77(117) NSR 0 (11) 9(A) , No pain 13:12:26 65 17 97 150/79(122) NSR 0 (11) 9(A) , No pain 13:16:51 75 12 96 142/80(122) NSR 0 (11) 9(A) , No pain 13:21:09 73 17 98 155/81(127) NSR 0 (11) 9(A) , No pain 13:26:18 76 12 96 179/90(135) NSR 0 (11) 10(A) , No pain 13:30:38 67 14 94 142/76(110) NSR 0 (11) 10(A) , No pain 13:34:46 63 12 91 102/57(69) NSR 0 (11) 9(A) , No pain 13:39:00 69 13 92 115/53(91) NSR 0 (11) 9(A) , No pain 13:43:14 73 23 95 106/62(100) NSR 0 (11) 10(A) , No pain 13:48:09 118 27 94 143/80(115) NSR 0 (11) 10(A) , No pain 13:52:31 66 13 97 158/81(130) NSR 0 (11) 10(A) , No pain Medications Time Medication Route Dose Verified Delivered Reason Notes Effe ctiveness by by 12:55:36 Versed I.V. 1 mg Stacy Stacy for sedation eTto Irene RN RN 12:55:50 Fentanyl I.V. 50 Stacy Stacy for sedation mcg Teto Irene RN RN 13:00:46 Benadryl I.V. 12.5 Stacy Stacy mg Teto Irene RN RN 13:05:23 Heparin I.V. 6000 Stacy Stacy for Bolus units Teto Irene anticoagulation RN RN 13:30:05 Versed I.V. 1 mg Stacy Stacy for sedation Teto Irene RN RN 13:30:26 Fentanyl I.V. 50 Stacy Stacy for sedation mcg Teto Irene RN RN 13:31:46 Benadryl I.V. 12.5 Stacy Stacy mg Teto Irene RN jigger operator Log Time Note 12:15:26 Cook RAABE 6FR. 90cm guide sheath opened to sterile field. 12:15:27 Micropuncture VSI 4FR kit opened to sterile field. 12:15:[address] 260 .035 glide wire opened to sterile field. 12:15:29 Cook BENTSON 145cm guide wire opened to sterile field. 12:15:30 Cook TRIPATHI 260 guide wire opened to sterile field. 12:15:32 Terumo 5Fr [place] Sheath opened to sterile field. 12:15:33 TUBING, CONTRAST INJCTN HI PRES opened to sterile field. 12:15:40 Use device set IR Diagnostic 12:15:43 Sterile Angiographic Pack opened to sterile field. 12:15:44 Bag Decanter opened to sterile field. 12:15:45 Acist Manifold opened to sterile field. 12:15:46 Acist Hand Control opened to sterile field. 12:15:48 Acist Syringe opened to sterile field. 12:16:15 Time tracking: Regular hours 12:16:43 Plan of Care:Hemodynamics will remain stable., Cardiac rhythm will remain stable., Comfort level will be maintained., Respiratory function will remain adequate., Patient/ family verbilizes understanding of procedure., Procedure tolerated without complication., Recovers from procedure without complications.. 12:16:50 Patient received from Outpatients to IR Alert and oriented. Tansferred to table in Supine position. 12:16:58 Correct patient and procedure confirmed by team. 12:17:01 Signed procedure consent form obtained from patient. 12:17:46 H&P Date Dictated: 10/31/2016 Within 30 days and on chart.. 12:17:49 Pre-procedure instructions explained to patient. 12:17:51 Pre-op teaching completed and patient verbalized understanding. 12:18:30 Family in waiting room. 12:18:33 Patient NPO since Midnight. 12:18:43 Patient allergic to No known allergies 12:18:55 Is the patient allergic to Iodine/contrast media? No. 12:18:58 Is patient on blood thinner?Yes 12:19:02 Patient diabetic? Yes. 12:19:04 If diabetic: On Metformin? No 12:19:06 - 12:19:08 ----Pre-sedation anethsthesia assessment.---- 12:19:11 Previous problem with sedation/anesthesia? No ? 12:19:17 Snore? Yes 12:19:19 Sleep apnea? Yes 12:19:21 Deviated septum? No 12:19:23 Opens mouth fully? Yes 12:19:24 Sticks out tongue? Yes 12:19:29 Airway obstruction? Yes copd 12:19:56 Dentures? Yes in secure 12:19:59 - 12:20:13 IV patent on arrival in right hand with 0.9% NaCl at KVO. 12:20:19 - 12:20:29 ECG and BP/O2 sat monitors applied to patient. 12:20:36 Vital chart was started 12:20:39 Baseline sample Acquired. 12:20:42 Full Disclosure recording started 12:20:43 - 12:21:12 Pre procedure: right dorsailis pedis pulse Doppler 12:21:17 Pre procedure: right posterior tibial pulse Doppler 12:21:25 - 12:21:32 Right groin area was prepped with chlora-prep and draped in sterile fashion 12:36:13 A Benjamin Kaye 5Fr 125CM catheter was advanced over the wire and used for . 12:37:12 Baseline sample Acquired. 12:37:16 - 12:37:24 Alarms reviewed by Dread Newberry 12:37:25 Sharps counted by scrub and verified by Amara 12:37:26 - 12:50:02 Physician arrived 12:52:00 --------ALL STOP TIME OUT------ 12:52:01 Final Timeout: patient, procedure, and site verified with staff and physician. All members of the team are in agreement. 12:52:44 Physical assessment completed. ASA score P 3 - A patient with severe systemic disease as per Juan Harris MD. 12:53:10 Sedation plan: IV Moderate Sedation Versed, Fentanyl 12:53:19 Procedure started. 12:53:27 Local anesthetic to right femoral artery with Lidocaine 1% by Juan Harris MD.INITIAL ACCESS ONLY 12:53:30 Arterial access obtained using ultrasound guidance. 12:55:36 Versed 1 mg I.V. was administered by Stacy Irene RN; for sedation; 12:55:50 Fentanyl 50 mcg I.V. was administered by Stacy Irene RN; for sedation; 13:00:46 Benadryl 12.5 mg I.V. was administered by Stacy Irene RN; ; 13:05:23 Heparin Bolus 6000 units I.V. was administered by Stacy Irene RN; for anticoagulation; 13:10:06 Venice Sci Choice PT Extra Support J 300cm .014 gu opened to sterile field. 13:16:59 Venice Sci Choice PT Extra Support J 300cm .014 gu opened to sterile field. 13:18:08 SPIDER EMBOLIC PROTECTION DEVICE 6MM opened to sterile field. 13:30:05 Versed 1 mg I.V. was administered by Stacy Irene RN; for sedation; 13:30:26 Fentanyl 50 mcg I.V. was administered by Stacy Irene RN; for sedation; 13:30:34 PROTEGE RX TAPERED 8-6MM X 30MM X 135CM stent was deployed across Undefined1 . 13:31:46 Benadryl 12.5 mg I.V. was administered by Stacy Irene RN; ; 13:32:34 Inflation number: 1 A Medel VIATRAC 6 x 2 x 135 balloon was prepped an d advanced across the Undefined1, then inflated to 9 TYLER for 0:05 (min:sec). 13:38:01 St Ray 6Fr sheath opened to sterile field. 13:41:07 ANGIOSEAL-VIP PLUS 6 FR opened to sterile field. 13:42:07 Sheath removed intact; hemostasis achieved with Angio-VIP 6Fr to the Right Femoral artery. 13:42:07 A sheath was inserted into the Right Femoral artery 13:45:03 Procedure ended.(Physican Out) 13:45:19 Fluoroscopy time 10.20 minutes. 13:45:28 Fluoroscopy dose: 1142 mGy 13:45:28 Flurop Dose total: 1142 13:46:10 Contrast amount:Isovue 300 70ml. 13:46:16 Procedure and supply charges have been captured, reviewed, submitted an d are correct. 14:00:21 Vital chart was stopped 14:00:25 Full Disclosure recording stopped Intervention Summary Intervention Notes Time ActionType Lesion and Equipment Action# Pressure Duration Attributes Used 13:30:34 Deploy self Undefined1 PROTEGE 1 expanding RX stent TAPERED 8-6MM X 30MM X 135CM stent 13:32:34 Inflate Undefined1 Medel 1 9 00:05 balloon VIATRAC 6 x 2 x 135 balloon Device Usage Item Name Manufacture Quantity Catalog Number Hospital Part Current M inimal Lot# / Charge Number Stock Stock Serial# Code 9Mile Labs RAABE 9Mile [employer] Medical 1 [id number] 5 6FR. 90cm guide sheath Micropuncture VSI VASCULAR 1 [id number] 193083 603219 5 VSI 4FR kit SOLUTIONS [employer] 1 [id number] 758943 150256 5 [id number] [facility] 260 .035 glide wire Cook BENTJOE 9Mile Labs [facility] 1 [id number] 436477 433747 5 [id number] 145cm guide wire Cook TRIPATHI [facility] 1 [id number] 090582 710649 5 [id number] 260 guide wire Terumo 5Fr Terumo 1 [id number] 612521 305466 542747 4 0 Bruc[place] Sheath TUBING, Merit 1 [id number] 795973 297448 345341 5 CONTRAST Medical INJCTN HI PRES Sterile Cardinal 1 [id number] 489387 335038 5 Angiographic Health Pack Bag Decanter Microtek 1 2002S 3866605 40141 156036 5 Medical Inc. Acist Acist 1 95212 146206 968451 775401 5 Manifold Medical Systems Inc Acist Hand Acist 1 52312 963513 349946 886456 5 Control Medical Systems Inc Acist Syringe Acist 1 07125 886636 957552 249241 2 0 Medical Systems Inc Merit Impress Merit 1 [id number] 259769 331390 664605 5 Kaye 5Fr Medical 125CM catheter Venice Sci Venice 1 [id number] 461582 815818 970703 5 Choice PT Scientific Extra Support J 300cm .014 gu SPIDER Medtronic 1 [id number] 217743 945646 5 EMBOLIC PROTECTION DEVICE 6MM PROTEGE RX Ev3 1 [id number] 870044 745390 786490 5 [id number] TAPERED 8-6MM X 30MM X 135CM stent Medel Medel 1 [id number] 735515 546832 992247 5 VIATRAC 6 x 2 Vascular x [address] Ray 1 017760 001221 887669 [id number] sheath ANGIOSEAL-VIP St Ray 1 056739 445511 016091 5 [id number] PLUS 6 FR Signature Audit Dillon Stage Time Signature Unsigned Intra-Procedure 10/31/2016 Renetta Hahn RT(R) 2:00:18 PM RT(R) 10/31/2016 2:09:57 PM Intra-Procedure 10/31/2016 Renetta Hahn 2:10:53 PM RT(R) Signatures Monitor : Renetta Hahn RT Signature : Date : Time : [facility] [address] [place] [address]
[~2016-10-31 09:05] MED LIST changes: +LIBRIUM25 MG PO; +MUCINEX DM ER1 EAC1 PO; +PLAVIX75 MG PO; +TOPAMAX25 MG PO
[2016-10-31] MEDS ORDERED: BAYER CHEWABLE81 MG PO (09:58)
[2016-10-31] MEDS ORDERED: MELATONIN10 M1 PO (10:00)
[2016-10-31] MEDS ORDERED: NAC600 MG PO (10:03)
[2016-10-31 10:59] LABS: BASOPHILS 0.5 % (0-2); EOSINOPHILS 10.1 % (0-7); HEMATOCRIT 31.8 % (42.0-54.0); HEMOGLOBIN 10.4 g/dL (13.5-17.5); IMMATURE GRANULOCYTES 0.2 % (0-5); LYMPHOCYTES 12.2 % (15-50); MCH 32.6 pg (26.0-34.0); MCHC 32.7 g/dL (31.0-37.0); MCV 99.7 fL (80.0-100.0); MEAN PLATELET VOLUME 9.8 fL (7.4-10.4); MONOCYTES 8.5 % (2-11); NEUTROPHILS 68.5 % (40-80); PLATELET COUNT 186 10x3/uL (130-400); RBC 3.19 10x6/uL (4.20-6.10); RDW 12.9 % (11.5-14.5); WBC 8.3 10x3/uL (4.8-10.8)
[2016-10-31 11:08] LABS: ANION GAP 17.9 mmol/L (8-16); APTT 22.6 SECONDS (22.8-39.4); CALCIUM 8.4 mg/dL (8.5-10.1); CARBON DIOXIDE 20.2 mmol/L (21.0-32.0); CREATININE - SERUM 2.8 mg/dL (0.6-1.3); INR 1.05 (0.85-1.17); POTASSIUM - SERUM 4.1 mmol/L (3.5-5.1); PROTIME 13.5 SECONDS (11.6-15.0)
--- NOTE | 2016-10-31 14:05 | NUR ---
RECIEVED PT FROM IR, ALERT, ORIENTED X1, AGITATED, PULLING IV AND OTHER CORDS, UNABLE TO BE REORIENTED, RESPIRATIONS SHALLOW, EXPIRATORY WHEEZES NOTED, IMPROVES WITH COUGHING, DRESSING TO RIGHT LEG CDI, NO REDNESS OR PAIN, PT MOVES LEG FREQUENTLY DESPITE REMINDERS TO KEEP IT STILL, BLE PULSES WEAK AND PALPABLE, DENIES PAIN,VSS, WILL CONTINUE TO MONITOR
--- NOTE | 2016-10-31 14:45 | NUR ---
1405 PT RECIEVED FROM IR VIA BED .. PT IS AWAKE APPROPRIATE IN RESPONSES AT THIS TIME.. THERE IS A A CDI DRESSING ON THE RIGHT GROIN PEDAL PULSE IS PALPABLE PT IS RESTLESS AND A SHEET IS PLACED ACROSS PT LEG TO PREVENT PT FROM MOVING LEG TOO MUCH AND DISLODGING THE ECTOSEAL .. O2 IS PLACED ON PT ON ARRIVAL AT 3 L NC.. SAT IS 99%.. THERRE IS A RIGHT PIV WITH NS INFUSING.. 1420 PT IS SLEEPING AND IS UPDATED TO PT STATUS. 1445 PT HAS PERIODS OF RESTLESSNESS AND APPARANT CONFUSION... EASILY REDIRECTED AT THIS TIME. HE WILL DOZE THEN AWAKEN...
--- NOTE | 2016-10-31 16:00 | NUR ---
PT IS NO LONGER PULLING ON LINES, CONTINUES ALERT AND ORIENTED X1, REORIENTED NEEDED, DENIES PAIN, DRESSING TO RLE CDI, NO REDNESS OR PAIN,VSS, WILL CONTINUE TO MONITOR
--- NOTE | 2016-10-31 17:10 | NUR ---
VSS, NO CHANGES NOTED, DRESSING TO RIGHT GROIN CDI, PT CONTINUES TO NEED FREQUENT REORIENTATION, DENIES PAIN, WILL CONTINUE TO MONITOR
--- NOTE | 2016-10-31 20:00 | NUR ---
SHIFT ASSESSMENT COMPLETE. PT RESTING IN BED WONDERING WHERE HIS IS. I TOLD HIM THAT IT WASN'T VISITING HOURS AND THAT SHE COULD NOT BE BACK HERE AT THIS TIME. PT SAID HE UNDERSTOOD. PERRLA, 3 MM, BRISK REACTION TO LIGHT. NC @ 2 L/MIN. DENTURES IN MOUTH. S1S2 AUDIBLE. EXPIRATORY WHEEZES HEARD BILAT. BS ACTIVE X4. ABD ROUND AND SOFT, NONTENDER TO TOUCH. R HAND PERIPHERAL IV WITH NS INFUSING AT 125 ML/HR. GENERALIZED BRUISING NOTED ON SKIN. RADIAL PULSES PALP. PT STARTED TO PULL AT COTTON CATH AND BP CUFF. INFORMED HIM OF THE RISKS ASSOCIATED WITH PULLING HIS CATH OUT. HE STATED THAT HE UNDERSTOOD AND STOPPED PULLING AT IT. NEW STAT LOCK PLACED ON R LEG. CATH DRAINING CLEAR YELLOW URINE. SLIGHT WEAKNESS TO ALL EXTREMITIES. PEDAL PULSES PALP BUT WEAK. CALL LIGHT IN REACH. PT DENIES ANY REQUESTS AT THIS TIME. WILL CONTINUE TO MONITOR.
--- NOTE | 2016-10-31 21:00 | NUR ---
PT STATES THAT HE WANTS TO TALK TO HIS . TRIED CALLING HER WITH NO ANSWER. INFORMED THE PT OF THIS. HE IS AGITATED, BUT LYING IN BED AND WATCHING TV. CALL LIGHT AND PHONE IN REACH. WILL CONT TO MONITOR.
--- NOTE | 2016-10-31 23:00 | NUR ---
PT WILL NOT STOP PULLING AT TELEMERTY LINES AND BP CUFF. REORIENTED PT AND HE STATES THAT HE DOES NOT WANT THEM ON. PT IN SIGHT OF NURSE'S STATION. REASSESSMENT COMPLETE. NO CHANGES NOTED. REPOSITIONED FOR COMFORT. WILL CONTINUE TO MONITOR.
[2016-11-01] VITALS: BP 159/74
[2016-11-01 01:00] VITALS: BP 168/65
--- NOTE | 2016-11-01 01:00 | NUR ---
PT DEMANDING THAT HIS BP CUFF BE REMOVED. TOOK BP AND READING WAS WNL. TOLD HIM THAT I WOULD TAKE IT OFF, BUT I WOULD HAVE TO COME BACK IN 2 HRS AND TAKE ANOTHER ONE. PT STATES THAT HE UNDERSTANDS. REPOSITONED WITH PILLOW UNDERNEATH R SIDE. PT CONTINUES TO LAY ON HIS BACK. 1900 ML CLEAR YELLOW URINE EMPTIED FROM COTTON. BED IN LOWEST POSITON, BED ALARM ON. WILL CONTINUE TO MONITOR.
--- NOTE | 2016-11-01 02:03 | NUR ---
WENT IN PT ROOM TO FIND HIM THRASHING AROUND, JERKING AND PULLING AT LINES. BEFORE I COULD REORIENT HIM HE HAD PULLED OUT HIS COTTON CATH. COMPLETE LINEN CHANGE AND BED BATH. REORIENTED PT AND TOLD HIM THAT HE WAS AT [facility]. HE STATED THAT HE THOUGHT HE WAS AT HOME AND HE "HAD TO GET THAT COTTON OUT." PT TRIED TO URINATE IN URINAL BUT WAS UNSUCCESSFUL. BLOODY DRAINAGE FROM TIP OF PENIS NOTED. BED IN LOWEST POSITION. PT IN VIEW OF THE NURSE'S STATION. HE STATES THAT HE IS NOT IN ANY PAIN AT THIS TIME. WILL CONTINUE TO MONITOR.
--- NOTE | 2016-11-01 03:00 | NUR ---
PT PULLED IV OUT. REORIENTED HIM AND HE STATES THAT HE UNDERSTANDS. COMPLETE LINEN CHANGE. PT VOIDING WITH NO PROBLEMS NOTED. SHEETS SATURATED WITH URINE. URINE IS DARK RED IN URINAL AND ON THE SHEETS IT IS A LIGHT PINK. REASSESSMENT COMPLETE. PT IS CONFUSED AND AGITATED BUT REORIENTS REASILY. NO COTTON OR IV AT THIS TIME. PT REFUSES TO HAVE HIS BP CUFF AND TELEMETRY LEADS ON. CURTAIN OPEN AND PT IS IN SIGHT OF THE NURSE'S STATION. WILL CONTINUE TO MONITOR.
[2016-11-01 04:16] LABS: BASOPHILS 0.4 % (0-2); EOSINOPHILS 9.4 % (0-7); HEMATOCRIT 30.4 % (42.0-54.0); IMMATURE GRANULOCYTES 0.3 % (0-5); MCH 32.4 pg (26.0-34.0); MCHC 32.9 g/dL (31.0-37.0); MCV 98.4 fL (80.0-100.0); MEAN PLATELET VOLUME 9.4 fL (7.4-10.4); MONOCYTES 8.3 % (2-11); NEUTROPHILS 69.6 % (40-80); PLATELET COUNT 170 10x3/uL (130-400); RBC 3.09 10x6/uL (4.20-6.10); RDW 12.9 % (11.5-14.5); WBC 7.3 10x3/uL (4.8-10.8)
[2016-11-01 04:34] LABS: ALBUMIN 2.7 g/dL (3.4-5.0); ANION GAP 13.1 mmol/L (8-16); BILIRUBIN - TOTAL 0.41 mg/dL (0.2-1.3); CALCIUM 8.2 mg/dL (8.5-10.1); CARBON DIOXIDE 21.9 mmol/L (21.0-32.0); CREATININE - SERUM 2.6 mg/dL (0.6-1.3); PROTEIN - SERUM 6.4 g/dL (6.4-8.2)
--- NOTE | 2016-11-01 05:00 | NUR ---
PT RESTING PEACEFULLY AT THIS TIME. TV ON. URINAL AT BEDSIDE. PT IS ABLE TO URIATE BY HIMSELF. NO S/S OF DISTRESS NOTED. WILL CONTINUE TO MONITOR.
--- NOTE | 2016-11-01 06:15 | NUR ---
UNABLE TO DOC V/S PAST 0200 DUE TO PT BEING NONCOMPLIANT. I TOLD HIM THAT IT WAS FOR HIS SAFETY AND THAT WE NEEDED DOCUMENTATION, BUT PT REFUSED. WILL CONTINUE WITH PLAN OF CARE.
[2016-11-01 07:00] VITALS: BP 143/69
--- NOTE | 2016-11-01 07:00 | NUR ---
SHIFT ASSESSMENT COMPLETED, PT ALERT, ORIENTED TO PERSON, REORIENTED WITH LITTLE SUCCESS, RESPIRATIONS SHALLOW, PT PULLING AND TELEMETRY LINES, ALLOWED VS TO BE TAKEN AND THE SUPPLIES TO BE REMOVED AFTER, CONTNINUES WITH BLOODY DRAINAGE FROM PENIS AFTER PULLING OUT CATHETER, DENIES ALL PAIN, LINENS CHANGED AND PARTIAL BED BATH GIVEN, VSS, WILL CONTINUE TO MONITOR
[2016-11-01 08:00] VITALS: BP 133/67
--- NOTE | 2016-11-01 10:30 | NUR ---
PT DISCHARGED HOME WITHWIFE, DISCHARGE MEDICATIONS AND DIRECTIONS REVIEWED WITH PT IS CONFUSED, THIS IS HIS NORMAL, DENIES PAIN AND ALL NEEDS, PER DR RAMIREZ TOLD THAT IF PENILE BLEEDING/HEMATURIA DOES NOT STOP TO FOLLOW UP WITH A UROLOGIST, STATES UNDERSTANDING AND HAS NO QUESTIONGS/CONCERNS, ASSISTED INTO CAR WITH PT
== END 2016-11-01 10:52 | disposition home or self-care (01) | DRG 35 ==
LOC: D.SDCHOLD 09:05 → D.ICU 09:05 → D.SDCHOLD 11:00 → D.ICU 13:04
PROVIDERS: Internal Medicine Pulmonary Disease; ADMIT Radiology Diagnostic Radiology
PROC: 037K3DZ Dilation of Right Internal Carotid Artery with Intraluminal Device, Percutaneous Approach (ICD-10-PCS; principal; 2016-10-31 11:00)
DX: I65.21 Occlusion and stenosis of right carotid artery (principal); I13.0 Hypertensive heart and chronic kidney disease with heart failure and stage 1 through stage 4 chronic kidney disease, or unspecified chronic kidney disease; E11.22 Type 2 diabetes mellitus with diabetic chronic kidney disease; E11.40 Type 2 diabetes mellitus with diabetic neuropathy, unspecified; N18.9 Chronic kidney disease, unspecified; I50.9 Heart failure, unspecified; J44.9 Chronic obstructive pulmonary disease, unspecified; F41.9 Anxiety disorder, unspecified; I25.10 Atherosclerotic heart disease of native coronary artery without angina pectoris; F32.9 Major depressive disorder, single episode, unspecified; G47.33 Obstructive sleep apnea (adult) (pediatric); K21.9 Gastro-esophageal reflux disease without esophagitis; I73.9 Peripheral vascular disease, unspecified; F03.90 Unspecified dementia, unspecified severity, without behavioral disturbance, psychotic disturbance, mood disturbance, and anxiety; R31.9 Hematuria, unspecified; Z72.89 Other problems related to lifestyle; Z95.5 Presence of coronary angioplasty implant and graft; Z87.891 Personal history of nicotine dependence

== ENCOUNTER 2016-11-03 09:38 | Observation (INO) | payer MEDICARE, BC ==
[2016-10-31 14:13] VITALS: BMI 31.6
[~2016-11-03 09:38] MED LIST changes: +BAYER CHEWABLE81 MG PO; +MELATONIN10 M1 PO
[2016-11-03 10:24] LABS: BASOPHILS 0.3 % (0-2); EOSINOPHILS 9.2 % (0-7); HEMATOCRIT 29.6 % (42.0-54.0); HEMOGLOBIN 9.8 g/dL (13.5-17.5); IMMATURE GRANULOCYTES 0.1 % (0-5); LYMPHOCYTES 14.9 % (15-50); MCH 32.6 pg (26.0-34.0); MCHC 33.1 g/dL (31.0-37.0); MCV 98.3 fL (80.0-100.0); MEAN PLATELET VOLUME 9.3 fL (7.4-10.4); MONOCYTES 8.1 % (2-11); NEUTROPHILS 67.4 % (40-80); PLATELET COUNT 186 10x3/uL (130-400); RBC 3.01 10x6/uL (4.20-6.10); RDW 12.8 % (11.5-14.5); WBC 7.2 10x3/uL (4.8-10.8)
[2016-11-03 10:44] LABS: ALBUMIN 2.8 g/dL (3.4-5.0); BILIRUBIN - TOTAL 0.37 mg/dL (0.2-1.3); CALCIUM 8.6 mg/dL (8.5-10.1); CREATININE - SERUM 2.9 mg/dL (0.6-1.3); PROTEIN - SERUM 6.8 g/dL (6.4-8.2)
[2016-11-03 11:26] LABS: APPEARANCE CLOUDY (CLEAR); BILIRUBIN NEGATIVE (NEGATIVE); COLOR DK YELLOW (YELLOW); GLUCOSE NEGATIVE (NEGATIVE); KETONE NEGATIVE (NEGATIVE); LEUKOCYTE ESTERASE TRACE (NEGATIVE); NITRITE NEGATIVE (NEGATIVE); PROTEIN 3+ mg/dL (NEGATIVE); SPECIFIC GRAVITY 1.015 (1.005-1.020); UROBILINOGEN NORMAL (NORMAL)
[2016-11-03 11:33] LABS: BACTERIA FEW /hpf (NONE SEEN); EPITHELIAL CELLS 0-5 /hpf (0-5); HYALINE CAST OCC /lpf (NONE SEEN); MUCUS >1+ /lpf (NONE SEEN); RED CELLS - URINE >50 /hpf (0-5)
[2016-11-03 16:00] VITALS: BP 178/74
[2016-11-03 20:00] VITALS: BP 125/57
--- NOTE | 2016-11-03 21:18 | NUR ---
RESTING QUIETLY. NO DISTRESS NOTED. IV INFUSING TO RIGT HAND WITHOUT REDNESS OR EDEMA NOTED.CL IN REACH. AT BEDSIDE
[2016-11-04 04:00] VITALS: BP 130/62
--- NOTE | 2016-11-04 05:00 | NUR ---
PT IS AWAKE AND TALKING TO SITTER. SITTER STATED HE HAS BEEN RESTLESS AND AWAKE ALL NIGHT. RESPIRATIONS EASY AND THE BED IS LOW, RAILS UP X'S 2 WITH THE CALL LIGHT AT HAND.
--- NOTE | 2016-11-04 05:38 | NUR ---
NO CHANGE IN ASSESSMENT. CL IN REACH.SITTER AT BEDSIDE
--- NOTE | 2016-11-04 07:00 | NUR ---
REPORT RECIEVED ASSUMED CARE. PATIENT IN BED WITH IV INTACT. NO COMPLAINTS AT THIS TIME. CALL LIGHT WITHIN REACH.
[2016-11-04 08:09] VITALS: BP 121/64
--- NOTE | 2016-11-04 08:45 | NUR ---
ASSESSMENT COMPLETE, VS STABLE. NO COMPLAINTS AT THIS TIME. SITTER AT BEDSIDE. CALL LIGHT WITHIN REACH.
--- NOTE | 2016-11-04 11:30 | NUR ---
PATIENT AND FAMILY RECIEVED DC INSTRUCTIONS. VERBALIZED UNDERSTANDING. NO QUESTIONS AT THIS TIME. IV REMOVED WITH CATH TIP INTACT. PATIENT CLEANED UP AND DRESSED PER NURSE AND REHAB AIDE. ASSISTED TO WC.
== END 2016-11-04 12:10 | disposition home health service (06) ==
LOC: D.ER 09:38 → D.MS 15:49 → OBSVTIME 15:49 → D.MS 11-04 12:10
PROVIDERS: Emergency Medicine; ADMIT Urology
DX: R31.0 Gross hematuria (principal); F03.90 Unspecified dementia, unspecified severity, without behavioral disturbance, psychotic disturbance, mood disturbance, and anxiety; N18.9 Chronic kidney disease, unspecified

== ENCOUNTER 2016-11-08 01:33 | Inpatient (IN) | payer MEDICARE, BC ==
[2016-11-08] VITALS (14 sets, daily range): BP systolic 148–192; BP diastolic 66–104; Ht 177.8 cm; Wt 89.1 kg
[~2016-11-08] VITALS: Ht 177.8 cm; Wt 89.1 kg
[2016-11-08 03:10] LABS: BASOPHILS 0.3 % (0-2); EOSINOPHILS 1.4 % (0-7); HEMATOCRIT 35.9 % (42.0-54.0); HEMOGLOBIN 11.9 g/dL (13.5-17.5); IMMATURE GRANULOCYTES 0.2 % (0-5); LYMPHOCYTES 5.9 % (15-50); MCH 32.2 pg (26.0-34.0); MCHC 33.1 g/dL (31.0-37.0); MCV 97.3 fL (80.0-100.0); MEAN PLATELET VOLUME 9.2 fL (7.4-10.4); MONOCYTES 4.8 % (2-11); NEUTROPHILS 87.4 % (40-80); PLATELET COUNT 190 10x3/uL (130-400); RBC 3.69 10x6/uL (4.20-6.10); RDW 12.6 % (11.5-14.5); WBC 10.3 10x3/uL (4.8-10.8)
[2016-11-08 03:26] LABS: ANION GAP 18.5 mmol/L (8-16); BILIRUBIN - TOTAL 0.39 mg/dL (0.2-1.3); CARBON DIOXIDE 21.1 mmol/L (21.0-32.0); CREATININE - SERUM 3.6 mg/dL (0.6-1.3); POTASSIUM - SERUM 4.6 mmol/L (3.5-5.1); PROTEIN - SERUM 7.8 g/dL (6.4-8.2)
--- NOTE | 2016-11-08 05:17 | NUR ---
PT ADMITTED TO ROOM FROM ER, RECIEVED REPORT FROM KEN. PT LYING IN BED ASLEEP WHEN ARRIVED TO ROOM ,RECIEVED MEDICAL HISTORY FROM PT SP. BED IN LOW POSITION CALL LIGHT WITHIN REACH. PT TEMP 102.9 WHEN REPORT WAS RECEIVED FROM ER, WAS GIVEN IBUPROFEN PT TEMP NOW 99.2 GAVE REPORT TO ONCOMING NURSE LESIA
--- NOTE | 2016-11-08 12:14 | NUR ---
CALLED TO LET HER KNOW OF TRANSFER TO ICU. REPORT CALLED TO LINDA. TRANSFERRED PER BED WITH PORTABLE OXYGEN
[2016-11-08 12:18] LABS: APPEARANCE TURBID (CLEAR); BACTERIA FEW /hpf (NONE SEEN); BILIRUBIN NEGATIVE (NEGATIVE); COLOR YELLOW (YELLOW); EPITHELIAL CELLS 0-5 /hpf (0-5); GLUCOSE 50 mg/dL (NEGATIVE); KETONE SMALL mg/dL (NEGATIVE); LEUKOCYTE ESTERASE 2+ (NEGATIVE); NITRITE NEGATIVE (NEGATIVE); PROTEIN 3+ mg/dL (NEGATIVE); RED CELLS - URINE 0-5 /hpf (0-5); SPECIFIC GRAVITY 1.015 (1.005-1.020); UROBILINOGEN NORMAL (NORMAL); WHITE CELLS - URINE >50 /hpf (0-5); YEAST >1+ /hpf (NONE SEEN)
--- NOTE | 2016-11-08 12:30 | NUR ---
PT BROUGHT TO ICU VIA BED FROM MED SURGE. O2 AT 2L. PT HAD NON PRODUCTIVE COUGH. PT ALERT TO PERSON ONLY. FAMILY NOT AT BED SIDE. ALL LOBES ASCULTATED. RHONCHI AND EXPITORY WHEEZING NOTED. PIV TO LEFT HAND SL. 16 FC INSERTED X1 ATTEMPT. COULDY URINE NOTED. PT ABLE TO FOLLOW SIMPLE COMMANDS BUT WHENEVER TAKING TO BACK, SPEACH UNCLEAR AND MUMBLES. UNABLE TO GATHER MUCH INFORMATION FROM HIM. WAS ABLE TO HEAR THAT HIS WAS BRIT AND HE TOOK HIS MEDICAITON YESTERDAY. IN BED HOB ELEVATE. O2 AT 2L VIA [place]. CALL LIGHT REACH. WILL CONT POC
[2016-11-08 12:34] LABS: HYALINE CAST RARE /lpf (NONE SEEN)
--- NOTE | 2016-11-08 12:45 | NUR ---
PT KEPT TRYING TO PULL OUT FC. EXPALINED WHY HE NEEDED IT AND HE KEPT MUMBLING UNCOPREHINSIVLY. ABLE TO CALM PT DOWN WERE HE WASNT PULLING AT FC.
--- NOTE | 2016-11-08 14:00 | NUR ---
PT RESTING IN BED. NO C/O PAIN OR SOB AT THIS TIME.
--- NOTE | 2016-11-08 15:30 | NUR ---
NA BICARB STARTED AT 50ML/H PER ORDRES.
--- NOTE | 2016-11-08 15:35 | NUR ---
ATTEMPTED TO START ANOTHER IV X2 ATTEMPTS. UNSUCCESSFUL. ANOTHER RN ABLE TO START X1 ATTEMPT IN LEFT HAND
--- NOTE | 2016-11-08 16:00 | NUR ---
WAS NOTIFIED BY HIS THAT HE HASNT HAD A DRINK IN OVER A WEEK AND THAT HIS IS AN ALCOHOLIC. DR FLORES NOTIFED.
--- NOTE | 2016-11-08 16:24 | NUR ---
PRN HYDROYZINE GIVEN FOR A BP OF 204/94.
--- NOTE | 2016-11-08 18:02 | NUR ---
PT RIPPED OUT IV IN HIS RIGHT HAND. PT CONFUSED. ABLE TO CALM PT DOWN. WRAPPED LEFT HAND IV WITH KERLIX TO PREVENT HIM FROM RIPPING OUT.
--- NOTE | 2016-11-08 18:18 | NUR ---
BP STILL ELEVATED. SBP OVER 180. DR FLORES NOTIFED. NEW ORDRES FOR LIBRIUM AND ATIVAN. PRN ATIVAN GIVEN. GAVE OK FOR PT TO TAKE PO MEDICATION WITH SMALL SIPS OF WATER.
--- NOTE | 2016-11-08 19:15 | NUR ---
REPORT RECIEVED, SHIFT ASSESSMENT COMPLETE, PT IS CONFUSED LYING IN BED, ON 2L NC WITH 97% O2 SAT. LUNGS CLEAR IN B/L UPPER LOBES, DIMINISHED IN B/L LOWER LOBES, PATENT RIGHT HAND PIV..BICARB GTT INFUSING, ABDOMEN IS SOFT AND ROUND WITH ACTIVE BS, PATENT F/C WITH C/Y UOP, NO EDEMA NOTED, ALL PPP, VSS, WILL CON'T TO MONITOR
--- NOTE | 2016-11-08 21:55 | NUR ---
Spoke to Óscar () via telephone, call in code given. Updated on current status, all questions answered to satisfaction.
--- NOTE | 2016-11-08 23:00 | NUR ---
REASSESSMENT COMPLETE, NO CHANGES NOTED, PT RESTING COMFORTABLY AT THIS TIME, NO NEEDS NOTED, WILL CON'T TO MONITOR
[2016-11-09] VITALS (26 sets, daily range): BP systolic 132–178; BP diastolic 68–94
--- NOTE | 2016-11-09 01:05 | NUR ---
PT AWAKE AT THIS TIME, STILL CONFUSED,
--- NOTE | 2016-11-09 03:00 | NUR ---
REASSESSMENT COMPLETE, NO CHANGES NOTED, PT RESTING AT THIS TIME, NO NEEDS NOTED, VSS, WILL CON'T TO MONITOR
[2016-11-09 04:32] LABS: BASOPHILS 0.1 % (0-2); EOSINOPHILS 0 % (0-7); HEMATOCRIT 32.7 % (42.0-54.0); HEMOGLOBIN 10.6 g/dL (13.5-17.5); IMMATURE GRANULOCYTES 0.2 % (0-5); LYMPHOCYTES 3.3 % (15-50); MCH 31.8 pg (26.0-34.0); MCHC 32.4 g/dL (31.0-37.0); MCV 98.2 fL (80.0-100.0); MONOCYTES 1.2 % (2-11); NEUTROPHILS 95.2 % (40-80); PLATELET COUNT 177 10x3/uL (130-400); RBC 3.33 10x6/uL (4.20-6.10); RDW 12.8 % (11.5-14.5); WBC 9.2 10x3/uL (4.8-10.8)
[2016-11-09 04:58] LABS: ALBUMIN 2.7 g/dL (3.4-5.0); ANION GAP 21.4 mmol/L (8-16); BILIRUBIN - TOTAL 0.34 mg/dL (0.2-1.3); CALCIUM 8.4 mg/dL (8.5-10.1); CARBON DIOXIDE 19.3 mmol/L (21.0-32.0); CREATININE - SERUM 3.5 mg/dL (0.6-1.3); MAGNESIUM - SERUM 2.4 mg/dL (1.8-2.4); POTASSIUM - SERUM 4.7 mmol/L (3.5-5.1); PROTEIN - SERUM 6.8 g/dL (6.4-8.2)
--- NOTE | 2016-11-09 07:00 | NUR ---
PT IN BED WITH SOFT WRIST RESTAINTS. CONFUSION NOTED. PT ALERT TO PERSON ONLY GARBLED SPEECH. PIV TO RIGHT UPPER ARM AND RIGHT HAND. SEE IV FLOWSHEET. FC PATENT WITH CLOUDY YELLOW URINE. DENIES PAIN VERBALLY AT THIS TIME. REMAINS NPO. CALL LIGHT REACH. WILL CONT POC.
--- NOTE | 2016-11-09 08:33 | NUR ---
BED ALARM NOT WORKING AND BED SCALE NOT WORKING. CHANGED BED WITH A WORKING BED. BED SCALE ZEROED OUT. ALARM FUNCTIONING. CALL LIGHT IN REACH. WILL CONT POC.
--- NOTE | 2016-11-09 10:12 | NUR ---
REQUESTED BED LONGORIA.
--- NOTE | 2016-11-09 11:47 | NUR ---
ST AT BED SIDE. ST SAID PT IS ABLE TO HAVE HONEY THICK FLUIDS AND FOR IT TO BE SPOON FED. PUREE MEAL WITH SMALL BITES.
--- NOTE | 2016-11-09 12:00 | NUR ---
RESTRAINTS IN PLACE, HOWEVER PT ABLE TO MANUVER IN BED WERE HE WAS ABLE TO PULL AT FC. SMALL AMOUNT OF DRIED BLOOD NOTED AT THE TIP OF THE PENIS AND SMALL AMOUNT OF BLOOD IN URINE. REPOSITION PT AND PLACE PILLOWS WHERE IT WAS MORE DIFFICULT TO REACH FC. DENIES PAIN
--- NOTE | 2016-11-09 13:14 | NUR ---
STILL ATEMPTING TO PULL AT FC. REPOSITION PT AND PRN ATIVAN GIVEN FOR TREMORS AND AGRESSION.
--- NOTE | 2016-11-09 14:11 | NUR ---
PT CALLING FOR "MARYANA" OVER AND OVER AGAIN. REORIENTED PT TO PLACE AND TIME WHERE HE STATED "YOUR KIDDING" PT REORIENTED. CONFUSION NOTED STILL, HOWEVER HE SPEECH IS BECOMING MORE CLEAR. CALL LIGHT IN REACH. WILL CONT POC.
--- NOTE | 2016-11-09 14:55 | NUR ---
LARGE BM. BROWN IN COLOR AND FORMED. PERERICARE PREMORMED
--- NOTE | 2016-11-09 15:00 | NUR ---
BROUGHT LIVING WILL AND POWER OF BEHAVIOR SUPPORT SPECIALIST. "THIS IS VIKRAM'S COPY" PLACED DOCUMENTS IN PT CHART. DNR.
--- NOTE | 2016-11-09 15:30 | NUR ---
PT RIPPED OUT RIGHT HAND IV. IV CATHETER TIP INTACT. RESITED 20 GAUGE TO RIGHT AC X1 ATTEMPTED. TOLERATED WELL.
--- NOTE | 2016-11-09 16:30 | NUR ---
BED BATH GIVEN. FC CARE PERFORMED. DURING BED BAD, PT TRIED TO PULL AT LINES. EXPLAINED FOR HIM NOT TO DO IT AND HE MADE INCOMPREHENSIVE WORDS. RESTRAINED PT WITH SOFT WRIST RESTRAINTS ONCE AGAIN. TO LEFT SIDE USING A PILLOW. CALL LIGHT IN REACH. WILL CONT POC.
--- NOTE | 2016-11-09 18:02 | NUR ---
SPOON FED PT A PURRE DIET AND SPOON FED HONEY THICK LIQUIDS. TOLERATED WELL WITH NO DYSPHAGIA.
--- NOTE | 2016-11-09 18:36 | NUR ---
AT BEDSIDE. QUESTIONS ANSWERED. PT HAD A NON PRODUCTIVE COUGH. LUNGS SOUNDS BETTER FROM PREVIOUS ASSESSMENT. FC HAS CLOUDY URINE NOTED WITH NO BLOOD. CALL LIGHT IN REACH. WILL CONT POC.
--- NOTE | 2016-11-09 19:00 | NUR ---
REPORT RECIEVED, SHIFT ASSESSMENT COMPLETE, PT IS CONFUSED LYING IN BED, ATTEMPTED TO REORIENT, ON RA WITH 98% O2 SAT, S1S2, CM-NSR, PATENT RIGHT UPPER ARM PIV...SEE IV FLOW SHEET....ABDOMEN IS SOFT AND ROUND WITH HYPO BS, PATENT F/C WITH CLOUDY UOP, NO EDEMA NOTED, ALL PPP, VSS, WILL CON'T TO MONITOR
--- NOTE | 2016-11-09 21:15 | NUR ---
UPDATE GIVEN TO FAMILY OVER PHONE, PASSWORD GIVEN,
--- NOTE | 2016-11-09 23:00 | NUR ---
REASSESSMENT COMPLETE, NO CHANGES NOTED, PT RESTING COMFORTABLY AT THIS TIME, WILL CON'T TO MONITOR
[2016-11-10] VITALS (23 sets, daily range): BP systolic 131–187; BP diastolic 55–104
--- NOTE | 2016-11-10 01:25 | NUR ---
NO NEEDS NOTED AT THIS TIME, VSS, CALL LIGHT IN REACH
[2016-11-10 03:58] LABS: BASOPHILS 0.1 % (0-2); EOSINOPHILS 0 % (0-7); HEMOGLOBIN 10.4 g/dL (13.5-17.5); IMMATURE GRANULOCYTES 0.3 % (0-5); LYMPHOCYTES 3.9 % (15-50); MCH 31.3 pg (26.0-34.0); MCHC 32.5 g/dL (31.0-37.0); MCV 96.4 fL (80.0-100.0); MONOCYTES 2.2 % (2-11); NEUTROPHILS 93.5 % (40-80); RBC 3.32 10x6/uL (4.20-6.10); RDW 12.8 % (11.5-14.5); WBC 9.9 10x3/uL (4.8-10.8)
[2016-11-10 04:01] LABS: PLATELET COUNT 217 10x3/uL (130-400)
[2016-11-10 04:13] LABS: ALBUMIN 2.7 g/dL (3.4-5.0); ANION GAP 19.2 mmol/L (8-16); BILIRUBIN - TOTAL 0.24 mg/dL (0.2-1.3); CALCIUM 8.5 mg/dL (8.5-10.1); CARBON DIOXIDE 21.9 mmol/L (21.0-32.0); CREATININE - SERUM 3.4 mg/dL (0.6-1.3); MAGNESIUM - SERUM 2.8 mg/dL (1.8-2.4); PHOSPHOROUS 3.8 mg/dL (2.5-4.9); POTASSIUM - SERUM 4.1 mmol/L (3.5-5.1); PROTEIN - SERUM 6.9 g/dL (6.4-8.2)
--- NOTE | 2016-11-10 05:20 | NUR ---
PT CONFUSED AT THIS TIME, YELLING OUT, PULLING AT LINES AND COTTON. B/L WRIST RESTRAINTS IN USE
--- NOTE | 2016-11-10 05:45 | NUR ---
DR. ANGELO AT BEDSIDE, UPDATE GIVEN
--- NOTE | 2016-11-10 06:20 | NUR ---
AT BEDSIDE, UPDATE GIVEN
--- NOTE | 2016-11-10 07:00 | NUR ---
REPORT FROM OFF GOING NURSE RECIEVED.
--- NOTE | 2016-11-10 07:30 | NUR ---
PT IN BED. SEE FLOW SHEET FOR ASSESSMENT. DENIES PAIN. CALL LIGHT IN REACH.
--- NOTE | 2016-11-10 08:30 | NUR ---
ASSISTED WITH MEAL. HOB 90 DEGREES. TOLERATED 90% SPOOM FED PUREE MEAL, HONEY THICK WATER UNTILL HE STARTED COUGHING. SUTIONED MOUTH APPROXIMETLY 2 MOUTH FULL PUREE FOOD. MD NOTIFIED. CXR ORDERED.
--- NOTE | 2016-11-10 09:21 | NUR ---
NUTRITION MONITORING & EVAL NURSING REPORTS PT HAD SOME TROUBLE EATING BREAKFAST THIS AM. TO RECONSULT SPEECH THERAPY FOR EVAL. WILL AWAIT RESULTS. RD FOLLOWING
--- NOTE | 2016-11-10 11:00 | NUR ---
PT RESTING. AWOKEN FOR ASSESSMENT. NO CHANGE FROM PREVIOUS ASSESSMENT. ASKED IF HE WANTED TO EAT LUNCH WHEN HE REFUSED. FSBS 100. RESTING WITH EYES CLOSED. BREATHING SHALLOW BUT UNLABORED. CALL LIGHT IN REACH. WILL CONT POC.
--- NOTE | 2016-11-10 11:01 | NUR ---
* Is the patient Alert and Oriented? Yes 0 * How many steps to enter\exit or inside your home? 1 0 * PCP Dr. Brady 0 * Pharmacy [facility] #1 0 * Preadmission Environment Home with Family 0 * ADLs Partial Dependent 0 * Partial ADLs (Assistance needed) Ambulation Bathing Dressing 0 * Equipment Cane CPAP Nebulizer Oxygen Rolling Walker 0 * List name and contact numbers for known caregivers / representatives who currently or will assist patient after discharge: Spouse - Óscar [phone] 0 * Community resources currently utilized Home Health 0 * Please name any agencies selected above. [facility] 0 * Additional services required to return to the preadmission environment? Yes 0 * Can the patient safely return to the preadmission environment? Yes 0 * Has this patient been hospitalized within the prior 30 days at any hospital? Yes Patient Name: ELSA IRVING Admission Status: ER Accout number: [id number] Admission Date: 11-08-2016 : 1930 Admission Diagnosis:ACUTE RESPIRATORY FAILURE WITH HYPOXIA Attending: CHERIE Current LOS: 2 Planned Disposition: Assisted Facility Primary Insurance: MEDICARE A & B Discharge Planning Comments: CM spoke with spouse via telephone to assess dc plans/needs. She states patient lives at home with her. She reports he requires assistance with ambulating, bathing & dressing. She reports he is currently on service with [facility]. She states that he has been declining at home and she was making arrangements to get him into [facility] for rehab but he had to return to the hospital before he could get there. Offered inpatient rehab eval but declines, wants him closer to their home in the [facility]. Will need FABIANO signed prior to referral. CM will follow & assist as needed. Learning And Development Officer: Deepali Olivares
--- NOTE | 2016-11-10 13:53 | NUR ---
PT RIPPED OF STAT LOCK FROM FC. OLD REMOVED AND NEW STAT LOCK TO OPPOSITE LEG (LEFT LEG). FC NOT IN REACH. HEMATURIA NOTED.
--- NOTE | 2016-11-10 15:00 | NUR ---
PT HAS NO NEEDS AT THIS TIME. VERY TIRED RESTING WITH EYES CLSOED WITH 0 S/SX OF DISTRESS/DISCOMFORT NOTED. BREATHING NORMAL AND UNLABORED. CALL LIGHT REACH. WILL CONT POC.
--- NOTE | 2016-11-10 17:30 | NUR ---
ABLE TO TAKE MEDICATION THAT OPENED AND PUT INTO A SMALL BITE OF PUDDING. HELD INSULIN TO SEE IF PT COULD TOLERATE MEAL. FSBS 110. HOB RAISED TO 90 DEGREES. TOOK SMALL BITES WITH SPOON. TOOK ABOUT 4 BITES BEFORE HE STARTED COUGHING PREFUSLY. ALOWED HIM TO TAKE A SPOONFULL OF WATER WHENEVER HE STARTED COUGHING MORE. O2 SAT 97% ON RA. COUGHING SUBSIDED. MEAL HELD AND INSULIN HELD.
--- NOTE | 2016-11-10 19:00 | NUR ---
REPORT RECIEVED, SHIFT ASSESSMENT COMPLETE, PT IS CONFUSED LYING IN BED, ON RA WITH 96% O2 SAT. CRACKLES HEARD IN B/L UPPER LOBES, DIMINISHED IN B/L LOWER LOBES, S1S2, CM-ST, PATENT RIGHT UPPER ARM PIV...SEE FLOW SHEET...ABDOMEN IS DISTENDED WITH HYPO BS, PATENT F/C WITH CONCENTRATED UOP, ALL PPP, VSS, WILL CON'T TO MONITOR
--- NOTE | 2016-11-10 21:14 | NUR ---
PT RESTING AT THIS TIME, NO VISITORS, WILL CON'T TO MONITOR
--- NOTE | 2016-11-10 23:00 | NUR ---
REASSESSMENT COMPLETE, NO CHANGES NOTED, PT RESTING AT THIS TIME, UPDATE GIVEN TO OVER PHONE, WILL CON'T TO MONITOR
[2016-11-11] VITALS (23 sets, daily range): BP systolic 135–184; BP diastolic 61–94
--- NOTE | 2016-11-11 01:25 | NUR ---
NO NEEDS NOTED AT THIS TIME, WILL CON'T TO MONITOR
--- NOTE | 2016-11-11 03:20 | NUR ---
REASSESSMENT COMPLETE, NO CHANGES NOTED, WILL CON'T TO MONITOR
[2016-11-11 04:08] LABS: BASOPHILS 0.3 % (0-2); EOSINOPHILS 2.2 % (0-7); HEMATOCRIT 28.9 % (42.0-54.0); HEMOGLOBIN 9.5 g/dL (13.5-17.5); IMMATURE GRANULOCYTES 0.3 % (0-5); LYMPHOCYTES 14.5 % (15-50); MCH 31.6 pg (26.0-34.0); MCHC 32.9 g/dL (31.0-37.0); MEAN PLATELET VOLUME 9.7 fL (7.4-10.4); MONOCYTES 8.3 % (2-11); NEUTROPHILS 74.4 % (40-80); PLATELET COUNT 226 10x3/uL (130-400); RBC 3.01 10x6/uL (4.20-6.10); RDW 12.8 % (11.5-14.5); WBC 9.4 10x3/uL (4.8-10.8)
[2016-11-11 04:32] LABS: ALBUMIN 2.3 g/dL (3.4-5.0); BILIRUBIN - TOTAL 0.29 mg/dL (0.2-1.3); CALCIUM 8.2 mg/dL (8.5-10.1); CREATININE - SERUM 3.1 mg/dL (0.6-1.3); MAGNESIUM - SERUM 2.5 mg/dL (1.8-2.4)
[2016-11-11 04:34] LABS: ANION GAP 13.4 mmol/L (8-16); CARBON DIOXIDE 27.7 mmol/L (21.0-32.0); POTASSIUM - SERUM 3.1 mmol/L (3.5-5.1)
--- NOTE | 2016-11-11 05:10 | NUR ---
REPOSITIONED FOR COMFORT,
--- NOTE | 2016-11-11 08:00 | NUR ---
PT GLOBALLY CONFUSED, GARBLED SPEECH. DR ANGELO HERE THIS AM. PT BUE WRIST RESTRAINTS ON TO KEEP HIM FROM PULLING AT LINES.
--- NOTE | 2016-11-11 11:57 | NUR ---
ASSISTED WITH BREAKFAST THIS AM, STARTED W/THICKENED WATER AND MOUTH CARE. PT SWALLOW IS INCONSISTENT. COUGHS UPON DEMAND BUT DOES NOT CLEAR SECREATIONS. REPORTED TO DR CRESPO. WILL REPORT TO
--- NOTE | 2016-11-11 13:06 | NUR ---
REPOSITIONED PT IN BED HOB AT 45 DEG. BEGAN TO FEED PT. PT KEEPS MOUTH CLOSED AND STATES SLEEPING. ST HERE AND PT REFUSES WELL ALSO STATING SLEEPING.
--- NOTE | 2016-11-11 18:39 | NUR ---
1600-PT PULLING AT LINES AND BED CLOTHES. REPOSITIONED AND REPLACED ELECTRODES AND COTTON CATH STABILAZATION DEVISE.
--- NOTE | 2016-11-11 23:15 | NUR ---
1914- REPORT RECVD. CARE ASSUMED. INITIAL ASSMNT COMPLETED. SEE FLOWSHEET FOR ALL FINDINGS. AWAKE AND RESTLESS IN BED. CONFUSED. GARBLED SPEECH. PERRLA. YELLING OUT. ATTEMPTS TO GET OOB AND PULL LINES. RESP UNLABORED. SPO2 97% ON O2 AT 2 LPM NC. LUNG SOUNDS WITH WHEEZES THRU OUT. DIM IN BASES. OCC SENIOR FINANCE MANAGER COUGH. SR ON THE MONITOR. HYPERTENSIVE. ABD SOFT, BSA X4. F/C PATENT WITH MARINO UOP. AFEBRILE. SCDS IN USE. REPOSITIONED FOR COMFORT AND SKIN INTEGRITY. RESTRAINSTS FOR SAFETY AND LINES. HOB UP. C/L IN REACH. BED ALARM ON. CONT CURRENT POC. 2114- MEDS GIVEN CRUSHED IN APPLESAUCE WITH THICKENED WATER. VSS. REPOSITIONED. NO VISITORS. 2299- PRN ATIVAN GIVEN FOR RESTLESSNESS AND DT [place] 2314- REASSESSMENT COMPLETED. SEE FLOWSHEET FOR ALL FINDINGS. AWAKE AND RESTLESS IN BED. CONFUSED. GARBLED SPEECH. PERRLA. YELLING OUT. ATTEMPTS TO GET OOB AND PULL LINES. RESP UNLABORED. SPO2 97% ON O2 AT 2 LPM NC. LUNG SOUNDS WITH WHEEZES THRU OUT. DIM IN BASES. OCC SENIOR FINANCE MANAGER COUGH. SR ON THE MONITOR. HYPERTENSIVE. ABD SOFT, BSA X4. F/C PATENT WITH MARINO UOP. AFEBRILE. SCDS IN USE. REPOSITIONED FOR COMFORT AND SKIN INTEGRITY. RESTRAINSTS FOR SAFETY AND LINES. HOB UP. C/L IN REACH. BED ALARM ON. CONT CURRENT POC.
[2016-11-12] VITALS (25 sets, daily range): BP systolic 152–188; BP diastolic 68–108
--- NOTE | 2016-11-12 01:09 | NUR ---
TURNED AND REPOSITIONED. RESTLESS AND AGITATED. VSS. SPO2 96% ON O2 AT 2 LPM NC. HOB UP. BED ALARM IN USE. C/L IN REACH. CONT CURRENT POC.
--- NOTE | 2016-11-12 03:15 | NUR ---
REASSESSMENT COMPLETED. SEE FLOWSHEET FOR ALL FINDINGS. AWAKE AND RESTLESS IN BED. CONFUSED. GARBLED SPEECH. PERRLA. YELLING OUT. ATTEMPTS TO GET OOB AND PULL LINES. RESP UNLABORED. SPO2 97% ON O2 AT 2 LPM NC. LUNG SOUNDS WITH WHEEZES THRU OUT. DIM IN BASES. OCC BACKEND DEVELOPER COUGH. SR ON THE MONITOR. HYPERTENSIVE. ABD SOFT, BSA X4. F/C PATENT WITH MARINO UOP. AFEBRILE. SCDS IN USE. REPOSITIONED FOR COMFORT AND SKIN INTEGRITY. RESTRAINSTS FOR SAFETY AND LINES. HOB UP. C/L IN REACH. BED ALARM ON. CONT CURRENT POC.
[2016-11-12 03:31] LABS: BASOPHILS 0.2 % (0-2); EOSINOPHILS 5.8 % (0-7); HEMATOCRIT 30.1 % (42.0-54.0); HEMOGLOBIN 9.9 g/dL (13.5-17.5); IMMATURE GRANULOCYTES 0.6 % (0-5); LYMPHOCYTES 14.5 % (15-50); MCH 31.7 pg (26.0-34.0); MCHC 32.9 g/dL (31.0-37.0); MCV 96.5 fL (80.0-100.0); MEAN PLATELET VOLUME 9.5 fL (7.4-10.4); MONOCYTES 10.3 % (2-11); NEUTROPHILS 68.6 % (40-80); PLATELET COUNT 217 10x3/uL (130-400); RBC 3.12 10x6/uL (4.20-6.10); RDW 12.9 % (11.5-14.5); WBC 9.3 10x3/uL (4.8-10.8)
[2016-11-12 03:39] LABS: ALBUMIN 2.3 g/dL (3.4-5.0); ANION GAP -0.5 mmol/L (8-16); BILIRUBIN - TOTAL 0.37 mg/dL (0.2-1.3); CALCIUM 8.3 mg/dL (8.5-10.1); CARBON DIOXIDE 26.6 mmol/L (21.0-32.0); CREATININE - SERUM 2.9 mg/dL (0.6-1.3); MAGNESIUM - SERUM 2.4 mg/dL (1.8-2.4); PHOSPHOROUS 2.8 mg/dL (2.5-4.9); POTASSIUM - SERUM 3.1 mmol/L (3.5-5.1); PROTEIN - SERUM 5.9 g/dL (6.4-8.2)
--- NOTE | 2016-11-12 05:05 | NUR ---
TURNED AND REPOSITIONED. VSS. HOB UP. C/L IN REACH. BED ALARM ON. CONT CURRENT POC.
--- NOTE | 2016-11-12 07:30 | NUR ---
REC'D REPORT FROM OUTGOING RN - PT LYING SUPINE IN BED - PT RESTLESS - ASSESSMENT COMPLETE CPOC
--- NOTE | 2016-11-12 09:00 | NUR ---
DR. ALMARAZ ON UNIT FOR ASSESSMENT - UPDATED ON PT'S ALERTNESS - SPOUSE AT BEDSIDE - SPOUSE REPORTS THIS IS PT'S BASELINE AWARENESS SINCE STENT WAS PLACED. PT'S LAST ALCOHOL DRINK ON 10/28/16 PER SPOUSE
--- NOTE | 2016-11-12 10:15 | NUR ---
PT RESTLESS - REPOSITIONED PT - ATTEMPTED TO COMFORT - CPOC
--- NOTE | 2016-11-12 12:00 | NUR ---
CPOCSPOUSE AT BEDSIDE - ANSWERED SPOUSE'S QUESTIONS - TURNED PT AND ROM COMPLETE
--- NOTE | 2016-11-12 13:16 | NUR ---
PT CONTINUES TO BE RESTLESS - ATTEMPTED TO COMFORT - REPOSITIONED PT - CPOC
--- NOTE | 2016-11-12 15:00 | NUR ---
ASSESSMENT COMPLETE - PT AWAKE THIS P.M. TRACKS WITH EYES - MOANS WITH ROM - CPOC
--- NOTE | 2016-11-12 15:00 | NUR ---
SPOUSE AT BEDSIDE - PT RESTING WITH EYES CLOSED - RESPIRATIONS REGULAR RATE AND RHYTHM. EAILISY AWAKEND BY VERBAL STIMULI
--- NOTE | 2016-11-12 16:53 | NUR ---
B/S AT 119 - WITHIN NORMAL LIMITS - TURNED PT WITH ROM - CPOC
--- NOTE | 2016-11-12 17:48 | NUR ---
PT RESTING SUPINE IN BED - WITH EYES CLOSED - RESPIRATIONS REG RATE AND RHYTHM - CPOC
--- NOTE | 2016-11-12 18:13 | NUR ---
SPOUSE CALLED - UPDATED ON PT'S STATUS - SPOUSE ASKED TO NOTIFY PT SHE WILL REST AT HOME TONIGHT AND BE BACK TOMORROW A.M. TO VISIT - INFORMED PT CPOC
--- NOTE | 2016-11-12 23:15 | NUR ---
REPORT RECVD. CARE ASSUMED. INITIAL ASSMNT COMPLETED. SEE FLOWSHEET FOR ALL FINDINGS. CONFUSED/ RESTLESS., GARBLED SPEECH. YELLING OUT. ATTEMPTS TO GET OOB AND PULL LINES. RESP UNLABORED. SPO2 97% ON O2 AT 2 LPM NC. LUNG SOUNDS WITH WHEEZES THRU OUT. DIM IN BASES. OCC ELECTRIC RANGE ASSEMBLER COUGH. SR ON THE MONITOR. HYPERTENSIVE. ABD SOFT, BSA X4. F/C PATENT WITH MARINO UOP. AFEBRILE. SCDS IN USE. REPOSITIONED FOR COMFORT AND SKIN INTEGRITY. RESTRAINSTS FOR SAFETY AND LINES. HOB UP. C/L IN REACH. BED ALARM ON. CONT CURRENT POC. 2114- IVP MEDS FOR DT TX AND HTN GIVEN. VSS. REPOSITIONED. NO VISITORS. CONT POC. 2314- REASSESSMENT COMPLETED. SEE FLOWSHEET FOR ALL FINDINGS. AWAKE AND RESTLESS IN BED. CONFUSED. GARBLED SPEECH. PERRLA. YELLING OUT. ATTEMPTS TO GET OOB AND PULL LINES. RESP UNLABORED. SPO2 97% ON O2 AT 2 LPM NC. LUNG SOUNDS WITH WHEEZES THRU OUT. DIM IN BASES. OCC ELECTRIC RANGE ASSEMBLER COUGH. SR ON THE MONITOR. HYPERTENSIVE. ABD SOFT, BSA X4. F/C PATENT WITH MARINO UOP. AFEBRILE. SCDS IN USE. REPOSITIONED FOR COMFORT AND SKIN INTEGRITY. MORE RESTFUL SINCE IVP ATIVAN. HOB UP. CONT POC.
[2016-11-13] VITALS (22 sets, daily range): BP systolic 146–211; BP diastolic 75–108
--- NOTE | 2016-11-13 01:05 | NUR ---
TURNED AND REPOSITIONED. RESTING WITH NO DISTRESS. VSS. CONT POC.
--- NOTE | 2016-11-13 03:15 | NUR ---
REASSESSMENT COMPLETED. SEE FLOWSHEET FOR ALL FINDINGS. AWAKE AND RESTLESS IN BED. CONFUSED. GARBLED SPEECH. PERRLA. YELLING OUT. ATTEMPTS TO GET OOB AND PULL LINES. RESP UNLABORED. SPO2 97% ON O2 AT 2 LPM NC. LUNG SOUNDS WITH WHEEZES THRU OUT. DIM IN BASES. OCC SUPERVISOR PUBLIC MESSAGE SERVICE COUGH. SR ON THE MONITOR. HYPERTENSIVE. ABD SOFT, BSA X4. F/C PATENT WITH MARINO UOP. AFEBRILE. SCDS IN USE. REPOSITIONED FOR COMFORT AND SKIN INTEGRITY. MORE RESTFUL SINCE IVP ATIVAN. HOB UP. CONT POC.
[2016-11-13 04:33] LABS: BASOPHILS 0.1 % (0-2); EOSINOPHILS 3.3 % (0-7); HEMATOCRIT 35.8 % (42.0-54.0); HEMOGLOBIN 11.6 g/dL (13.5-17.5); IMMATURE GRANULOCYTES 0.6 % (0-5); LYMPHOCYTES 5.2 % (15-50); MCH 31.5 pg (26.0-34.0); MCHC 32.4 g/dL (31.0-37.0); MCV 97.3 fL (80.0-100.0); MEAN PLATELET VOLUME 9.7 fL (7.4-10.4); MONOCYTES 10.4 % (2-11); NEUTROPHILS 80.4 % (40-80); PLATELET COUNT 252 10x3/uL (130-400); RBC 3.68 10x6/uL (4.20-6.10); RDW 13.1 % (11.5-14.5)
[2016-11-13 04:36] LABS: WBC 13.9 10x3/uL (4.8-10.8)
[2016-11-13 04:46] LABS: ALBUMIN 2.6 g/dL (3.4-5.0); BILIRUBIN - TOTAL 0.39 mg/dL (0.2-1.3); CALCIUM 8.7 mg/dL (8.5-10.1); CREATININE - SERUM 2.9 mg/dL (0.6-1.3); MAGNESIUM - SERUM 2.2 mg/dL (1.8-2.4); PROTEIN - SERUM 6.9 g/dL (6.4-8.2)
[2016-11-13 04:47] LABS: ANION GAP 13.7 mmol/L (8-16); POTASSIUM - SERUM 4.7 mmol/L (3.5-5.1)
--- NOTE | 2016-11-13 05:15 | NUR ---
TURNED AND REPOSITIONED. HYPERTENSIVE, PRN APRESOLINE IVP ORDERED. RESTING WITH NO DISTRESS. HOB UP. CONT CURRENT POC.
--- NOTE | 2016-11-13 06:30 | NUR ---
RESP DEEP AND SHALLOW, ASSESSORY MUSCLE USE. DIFF TO AROUSE. ABGS DRAWN AND RESULTED. ALL WITHIN PARAMETERS. AT BEDSIDE. TEACHING DONE.
--- NOTE | 2016-11-13 17:08 | NUR ---
0700 RECEVED PT LAYING IN BED EYES CLOSED, SNORING ONLY AWAKES TO PAINFUL STIMULI AND DOES NOT OPEN EYES, WILL NOT FOLLOW COMMANDS ONLY WITHDRAWALS. BP ELEVATED SBP 200'S. SEE ASSESMENT. 0800 SPOKE WITH MD ABOUT BP NEW ORDER FOR HYDRALAZINE X 1 0900 RENAL DIRECTOR ELECTRONICS IN UNIT FOR ROUNDS QUESTIONS ANSWERED NEW ORDERS RECEIVED, AT BEDSIDE QUESTIONS ANSWERED. 1100 RESTING QUEITLY VSS, STILL LETHARGIC, WILL NOT WAKE UP OR FOLLOW COMMANDS, RESP MD IN UNIT STATED NOT TO GIVE ANY MORE ATIVAN TIL FULLY WAKENS AND ONLY IF NEEDED, ATIVAN NOT GIVEN SINCE MONDAY NIGHT. 1400 [address] IN UNIT FOR SWALLOW STUDY UNABLE TO COMPLETE D/T LETHARGY AND ELEVATED RR. 1500 TEMP 101.5 COVERS OFF, COOL WASH CLOTH TO FOREHEAD, SPOKE WITH MD NEW ORDER FOR BC X 1, TYLENOL SUPP IF NEEDED, WAITING FOR LAB TO COLLECT BC, REMAINS LETHARGIC AND SLEEPING, VSS NO DISTRESS
--- NOTE | 2016-11-13 19:15 | NUR ---
REPORT RECIEVED. ASSESSMENT COMPLETED. RECIEVED IN REPORT THAT PT HAS NOT BEEN PULLING AT LINES SO I DC'D THE RESTRAINTS. PT ABLE TO AROUSE WITH STERNAL RUB BUT UNABLE TO GIVE HIS DATE. PT LUNG SOUNDS ARE CRACKLES IN THE UPPER LOBES AND DIMINISHED IN THE LOWER LOBES. PT IS HOOKED UP TO TELEMETRY WITH A RATE OF 96 OF SINUS RHYTHM. PT HAS PALP PULSES IN ALL EXTREMITIES. HAS A RT FOREARM PERIPHERAL WITH 1/2 NS @ 10. PT IS POSITIONED FOR COMFORT WILL CONTINUE TO MONITOR.
--- NOTE | 2016-11-13 21:00 | NUR ---
NO VISITORS AT THIS TIME. PT RESTING IN BED. POSITIONED FOR COMFORT WILL CONTINUE TO MONITOR.
--- NOTE | 2016-11-13 23:00 | NUR ---
REASSESSMENT COMPLETED. NO ACUTE CHANGES AT THIS TIME. PT POSITIONED FOR COMFORT WILL CONTINUE TO MONITOR.
[2016-11-14] VITALS (24 sets, daily range): BP systolic 078–191; BP diastolic 58–97
--- NOTE | 2016-11-14 01:00 | NUR ---
PT ASLEEP IN BED DENIES ANY NEEDS. PT POSITIONED FOR COMFORT WILL CONTINUE TO MONITOR.
[2016-11-14 04:38] LABS: BASOPHILS 0.1 % (0-2); EOSINOPHILS 1.4 % (0-7); HEMATOCRIT 34.5 % (42.0-54.0); HEMOGLOBIN 11.3 g/dL (13.5-17.5); IMMATURE GRANULOCYTES 0.9 % (0-5); LYMPHOCYTES 5.6 % (15-50); MCH 31.9 pg (26.0-34.0); MCHC 32.8 g/dL (31.0-37.0); MCV 97.5 fL (80.0-100.0); MONOCYTES 11.3 % (2-11); NEUTROPHILS 80.7 % (40-80); PLATELET COUNT 258 10x3/uL (130-400); RBC 3.54 10x6/uL (4.20-6.10); RDW 13.1 % (11.5-14.5); WBC 15.4 10x3/uL (4.8-10.8)
[2016-11-14 04:59] LABS: ALBUMIN 2.3 g/dL (3.4-5.0); ANION GAP 14.5 mmol/L (8-16); BILIRUBIN - TOTAL 0.44 mg/dL (0.2-1.3); CALCIUM 8.9 mg/dL (8.5-10.1); CARBON DIOXIDE 25.8 mmol/L (21.0-32.0); CREATININE - SERUM 3.1 mg/dL (0.6-1.3); POTASSIUM - SERUM 4.3 mmol/L (3.5-5.1); PROTEIN - SERUM 6.9 g/dL (6.4-8.2)
--- NOTE | 2016-11-14 07:00 | NUR ---
SHIFT ASSESSMENT COMPLETED, ALERT AND ORIENTED TO PERSON, O2 2L NC, PIV X2 TO RIGHT ARM, PATENT, DRESSING CDI, COTTON IN PLACE DRAINING CLEAR URINE, NO SIGNS OF PAIN, WILL CONTINUE TO MONITOR
--- NOTE | 2016-11-14 09:05 | NUR ---
PRN HYDRALAZINE ADMINISTERED PER EMAR FOR HTN, ALERT, ABLE TO VOICE NEEDS, REORIENTED, DENIES PAIN, REPOSITIONED, WILL CONTINUE TO MONITOR
--- NOTE | 2016-11-14 10:02 | NUR ---
NUTRITION MONITORING & EVAL CHART REVIEWED, PT NOW NPO FOR POSSIBLE NG TUBE PLACEMENT/PEG. WILL ADDRESS TUBE FEEDS WHEN APPROPRIATE. RD FOLLOWING
--- NOTE | 2016-11-14 11:08 | NUR ---
DISCUSSED WITH DR STEVE LAGUNAS VS NG, WILL CONSULT SURGERY FOR PEG PLACEMENTPT REPOSITIONED, VSS, WILL CONTINUE TO MONITOR
--- NOTE | 2016-11-14 12:19 | NUR ---
PT SIGNED CONSENTS FOR EGD AND PEG WITH ANESTHESIA AND BLOOD CONSENTS
--- NOTE | 2016-11-14 13:43 | NUR ---
PT REPOSITIONED, VSS, ORAL CARE PROVIDED, WILL CONTINUE TO MONITOR
--- NOTE | 2016-11-14 14:30 | NUR ---
DR HERMAN, ANESTHESIA AND GI STAFF PERFORMING EGD AND PEG AT BEDSIDE AT THIS TIME
--- NOTE | 2016-11-14 15:29 | NUR ---
PT TOLERATED PROCEDURE WELL, PEG IN PLACE PER AUSCULTATION, FLUSHED PER ORDERS, SPOKE WITH DR WILSON, NEW ORDERS TO CONTINUE PO MEDS THAT WERE HELD, SPOKE WITH PHARMACY TO REACTIVATE SPECIFIED MEDS, DISCONTINUE SCHEDULED IV HYDRALAZINE, ABD BINDER IN PLACE, NO SIGNS OF PAIN, SAW PT AT 1500 VISITATION, NO QUESTIONS, WILL CONTINUE TO MONITOR
--- NOTE | 2016-11-14 17:00 | NUR ---
PT CONTINUES SLEEPING, AROUSES WHEN REPOSITIONED, FOLLOWS COMMANDS WITH ENCOURAGEMENT, VSS, NO SIGNS OF PAIN, WILL CONTINUE TO MONITOR
--- NOTE | 2016-11-14 19:15 | NUR ---
REPORT RECIEVED. ASSESSMENT COMPLETED. PT AROUSES TO PAINFUL STIMULI. PT VERY LETHARIC. PT PUPILS ARE 3 AND REACTIVE TO LIGHT. PT LUNG SOUNDS HAVE CRACKLES IN THE UPPER LOBES AND DIMINISHED IN THE LOWER LOBES. PT IS ON TELEMETRY WITH A RATE OF 93 IN SINUS RHYTHM. PT HAS PALP PULSES IN ALL EXTREMITIES. PT HAS ACTIVE BOWEL SOUNDS X4. PT POSITIONED FOR COMFORT. WILL CONTINUE TO MONITOR.
--- NOTE | 2016-11-14 21:00 | NUR ---
NO VISITORS AT THIS TIME. PT POSITIONED FOR COMFORT WILL CONTINUE TO MONITOR.
--- NOTE | 2016-11-14 23:00 | NUR ---
REASSESSMENT COMPLETED. NO ACUTE CHANGES AT THIS TIME. PT POSITIONED FOR COMFORT WILL CONTINUE TO MONITOR.
[2016-11-15] VITALS (24 sets, daily range): BP systolic 110–168; BP diastolic 66–86
--- NOTE | 2016-11-15 00:20 | NUR ---
WENT IN PT ROOM PT HAD SOME POSTURING. CHECKED PUPILS AND RT PUPIL WAS A 4 AND NON REACTIVE. PT LT EYE WAS 3 AND REACTIVE. CALLED [facility] SHE ORDERED A HEAD CT WITHOUT CONTRAST. CALLED RADIOLOGY AND NOTIFIED THEM.
--- NOTE | 2016-11-15 00:47 | NUR ---
PT RETURNED FROM HEAD CT. HOOKED BACK TO THE MONIOTORS. WILL CONTINUE TO MONITOR PT.
--- NOTE | 2016-11-15 03:00 | NUR ---
REASSESSMENT COMPLETED. PT RT PUPILS IS STILL A [address] DONE AND COME BACK WITH NO ABNORMAL FINDINGS. PT POSITIONED FOR COMFORT WILL CONTINUE TO MONITOR.
[2016-11-15 03:03] LABS: BASOPHILS 0 % (0-2); EOSINOPHILS 0.3 % (0-7); HEMOGLOBIN 10.6 g/dL (13.5-17.5); LYMPHOCYTES 5.3 % (15-50); MCH 31.3 pg (26.0-34.0); MCHC 32.1 g/dL (31.0-37.0); MCV 97.3 fL (80.0-100.0); MEAN PLATELET VOLUME 9.4 fL (7.4-10.4); MONOCYTES 10.3 % (2-11); NEUTROPHILS 83.1 % (40-80); PLATELET COUNT 233 10x3/uL (130-400); RBC 3.39 10x6/uL (4.20-6.10); RDW 13.2 % (11.5-14.5); WBC 15.3 10x3/uL (4.8-10.8)
[2016-11-15 03:26] LABS: ANION GAP 13.2 mmol/L (8-16); CALCIUM 8.7 mg/dL (8.5-10.1); CREATININE - SERUM 3.6 mg/dL (0.6-1.3); MAGNESIUM - SERUM 2.3 mg/dL (1.8-2.4); PHOSPHOROUS 4.8 mg/dL (2.5-4.9); POTASSIUM - SERUM 4.2 mmol/L (3.5-5.1)
--- NOTE | 2016-11-15 05:00 | NUR ---
GAVE PT A FULL BATH AND COMPLETE LINEN CHANGE. PT POSITIONED FOR COMFORT WILL CONTINUE TO MONITOR.
--- NOTE | 2016-11-15 07:00 | NUR ---
SHIFT ASSESSMENT COMPLETED, ALERT, CONFUSED, ABLE TO VOICE SOME NEEDS BUT SPEECH GARBLED, PUPILS EQUAL IN SIZE, RIGHT PUPIL SLUGGISH TO REACT, VSS, PEG IN PLACE PER AUSCULTTATION, DENIES PAIN, REPOSITIONED, ORAL CARE PROVIDED
--- NOTE | 2016-11-15 09:00 | NUR ---
ORAL CARE AND REPOSITIONING WITH PARTIAL BED BATH GIVVEN, IN ROOM FOR VISITATION, ALL QUESTIONS ANSWERED, DENIES ALL NEEDS, VSS,WILL CONTINUE TO MONITOR
--- NOTE | 2016-11-15 09:22 | NUR ---
NUTRITION MONITORING & EVAL CHART REVIEWED. PT REMAINS NPO. TUBE FEEDS INITIATED PER MD CONSULT. RD FOLLOWING
--- NOTE | 2016-11-15 11:00 | NUR ---
TUBE FEEDING STARTED NEPRO AT [address] ANGELO, DISCUSSED WITH DR MACARIO THE NURSING MESSAGES OF 2 DIFFERENT FEEDINGS AND HE SAID TO FOLLOW THE NEPRO ORDER, VSS, REPOSITIONED, WILL CONTINUE TO MONITOR
--- NOTE | 2016-11-15 12:55 | NUR ---
PT REPOSITIONED, ORAL CARE PROVIDED, VSS, DENIES NEEDS, TUBE FEEDING PER ORDERS TOLERATING WELL, WILL CONTINUE TO MONITOR
--- NOTE | 2016-11-15 14:14 | NUR ---
TOTAL BED BATH AND LINEN CHANGE, ORAL CARE PROVIDED, VSS, WILL CONTINUE TO MONITOR
--- NOTE | 2016-11-15 16:06 | NUR ---
PT REPOSITIONED, ORAL CARE PROVIDED, VSS, CALLED TO CHECK ON PT SHE IS UNABLE TO MAKE AFTERNOON VISITATION, WILL CONTINUE TO MONITOR
--- NOTE | 2016-11-15 17:09 | NUR ---
PT REPOSITIONED, VSS, DENIES ALL NEEDS, WILL CONTINUE TO MONITOR
--- NOTE | 2016-11-15 19:10 | NUR ---
REPORT RECIEVED. ASSESSMENT COMPLETE PER FLOW SHEET. ORAL CARE ADM. DENIES PAIN OR NEEDS. REPOSITIONED ON R SIDE. WILL CONTINUE TO MONITOR
--- NOTE | 2016-11-15 21:43 | NUR ---
FAMILY GIVEN UPDATE. VSS NO NEW CHANGES WILL CONTINUE TO MONITOR
[2016-11-16] VITALS (23 sets, daily range): BP systolic 132–177; BP diastolic 54–90
--- NOTE | 2016-11-16 01:00 | NUR ---
COMPLETE BB LINEN CHANGE ADM. NO NEW FINDINGS. VSS. WILL CONTINUE TO MONITOR
--- NOTE | 2016-11-16 03:30 | NUR ---
REASSESSMENT COMPLETE PER FLOW SHEET. VSS. NO NEW CHANGES. WILL CONTINUE TO MONITOR
[2016-11-16 04:10] LABS: BASOPHILS 0.1 % (0-2); EOSINOPHILS 0.1 % (0-7); HEMATOCRIT 33.5 % (42.0-54.0); HEMOGLOBIN 11.1 g/dL (13.5-17.5); IMMATURE GRANULOCYTES 0.8 % (0-5); LYMPHOCYTES 7.1 % (15-50); MCH 31.6 pg (26.0-34.0); MCHC 33.1 g/dL (31.0-37.0); MCV 95.4 fL (80.0-100.0); MONOCYTES 9.2 % (2-11); NEUTROPHILS 82.7 % (40-80); RBC 3.51 10x6/uL (4.20-6.10); RDW 13.1 % (11.5-14.5); WBC 15.7 10x3/uL (4.8-10.8)
[2016-11-16 04:16] LABS: PLATELET COUNT 282 10x3/uL (130-400)
[2016-11-16 04:25] LABS: CALCIUM 8.4 mg/dL (8.5-10.1); CARBON DIOXIDE 23.1 mmol/L (21.0-32.0); CREATININE - SERUM 3.6 mg/dL (0.6-1.3); PHOSPHOROUS 4.6 mg/dL (2.5-4.9); POTASSIUM - SERUM 4.1 mmol/L (3.5-5.1)
--- NOTE | 2016-11-16 07:00 | NUR ---
SHIFT ASSESSMENT COMPLETED, PT ALERT, CONFUSED, REORIENTED WITH LITTLE SUCCESS, PUPILS EQUAL AND REACTIVE, RIGHT PUPIL SLUGGISH, PEG IN PLACE PER ASPIRATION, AUSCULTATION, 5ML RESIDUAL, NEPHRO 40ML/HR PER DR ANGELO, DRESSING TO PEG CHANGED, NO DRAINAGE, CATHETER DRAINING CLEAR YELLOW, PIV X2 TO RIGHT ARM PATENT, VSS, REPOSITIONED, WILL CONTINUE TO MONITOR
--- NOTE | 2016-11-16 08:45 | NUR ---
NUTRITION MONITORING & EVAL CHART REVIEWED, NURSING REPORTS TUBE FEEDS CHANGED TO NEPRO BY NEPHROLOGY. WILL CONTINUE TO MONITOR PT PROGRESS, TUBE FEED TOLERANCE. RD FOLLOWING
--- NOTE | 2016-11-16 09:00 | NUR ---
PT REPOSITIONED ORAL CARE PROVIDED, VSS, SPOKE WITH WHILE IN ROOM FOR VISITATION WHO HAS NO QUESTIONS AT THIS TIME, WILL CO NTINUE TO MONITOR
--- NOTE | 2016-11-16 11:00 | NUR ---
PT REPOSITIONED, VSS, ORAL CARE PROVIDED, COUGHS WITH ENCOURAGMENT, WILL CONTINUE TO MONITOR
--- NOTE | 2016-11-16 13:00 | NUR ---
TOTAL BED BATH AND LINEN CHANGE PROVIDED, VSS, SLEEPING AT THIS TIME, WILL CONTINUE TO MONITOR
--- NOTE | 2016-11-16 15:00 | NUR ---
PHYSICAL THERAPY PERFORMED ROM WITH PT, REPOSITIONED, VSS, WILL CONTINUE TO MONITOR
--- NOTE | 2016-11-16 16:01 | NUR ---
PER DR LOVELL NOTE, OK TO GO TO FLOOR, PAGED DR WILSON TO CONFIRM WITH HER, AWAITING REPLY
--- NOTE | 2016-11-16 17:00 | NUR ---
VSS, ORAL CARE AND REPOSITIONING COMPLETE, WILL CONTINUE TO MONITOR
--- NOTE | 2016-11-16 19:35 | NUR ---
REPORT RECIEVED. ASSESSMENT COMPLETE PER FLOW SHEET. VSS. REFER FOR FIDINGS. PT SLEEPING COMFORTABLY. WILL CONTINUE TO MONITOR
--- NOTE | 2016-11-16 21:10 | NUR ---
FAMILY CALLED GIVEN UPDATE. VSS. NO NEW CHANGES. 2100 MEDS ADM WITHOUT DIFFICULTY. WILL CNTINUE TO MONITOR
--- NOTE | 2016-11-16 22:18 | NUR ---
REPORT GIVEN. PT TSF WITHOUT DIFFICULTY. VSS. RESTING COMFORTABLLY.
--- NOTE | 2016-11-16 22:30 | NUR ---
PT ARRIVES FROM ICU TO ROOM 2108 VIA BED ACCOMPANIED BY NURSE. PLACED ON TLEMETRY, SHOWS NSR ON MONITOR, HR 60'S. BBB NOTED. PT IS LETHARGIC AND AROUSES TO VEBRAL STIMULI. VSS, AFEBRILE. PEG TUBE NOTED WITH NEPRO AT 40 ML/HR VIA FEEDING PUMP. ABD BINDER NOTED TO MID SECTION. BED ALARM SET AND CALL LIGHT PLACED WITHIN REACH. INITIAL ASSESSMENT COMPLETED UPON ARRIVAL. WILL MONITOR.
--- NOTE | 2016-11-17 00:15 | NUR ---
WHEN INFORMATION MANAGEMENT OFFICER WENT TO DO MIDNIGHT VS'S PT. WAS FOUND TO HAVE HIS O2 OFF AND HIS SAT% WAS IN THE 80'S. CHARGE NURSE, PRIMO BEASLEY INCREASED O2 TO 4L VIA N/C AND HIS O2% WENT UP TO 98%. O2 WAS LEFT AT 4L. PT. HAS ALSO BECOME UNRESPONSIVE SINCE LAST ASSESSMENT. REPORTED THIS TO CHARGE NURSE AND SHE REPORTED THAT PT. WAS THIS WAY LAST NIGHT WHEN SHE DID HIS ASSESSMENT. ALSO REPORTED THAT PT. IS TREMBLING. CHARGE NURSE REPORTS THAT PT. COULD BE IN DT'S PT. HAS A HX OF ALCOHOLISM. INFORMED OF THIS AND SHE REQUESTED A WARMED BLANKET AND IT WAS APPLIED FOR COMFORT MEASURES. CALL LIGHT WITHIN 'S REACH SHE IS STAYING THE NIGHT.
[2016-11-17 05:28] LABS: BASOPHILS 0.1 % (0-2); EOSINOPHILS 0.7 % (0-7); HEMATOCRIT 33.1 % (42.0-54.0); HEMOGLOBIN 10.8 g/dL (13.5-17.5); IMMATURE GRANULOCYTES 1.4 % (0-5); LYMPHOCYTES 9.5 % (15-50); MCH 31.1 pg (26.0-34.0); MCHC 32.6 g/dL (31.0-37.0); MCV 95.4 fL (80.0-100.0); MEAN PLATELET VOLUME 9.6 fL (7.4-10.4); MONOCYTES 10.3 % (2-11); PLATELET COUNT 269 10x3/uL (130-400); RBC 3.47 10x6/uL (4.20-6.10); RDW 13.2 % (11.5-14.5); WBC 12.4 10x3/uL (4.8-10.8)
[2016-11-17 05:49] LABS: ANION GAP 15.3 mmol/L (8-16); CALCIUM 8.4 mg/dL (8.5-10.1); CARBON DIOXIDE 22.5 mmol/L (21.0-32.0); CREATININE - SERUM 3.5 mg/dL (0.6-1.3); POTASSIUM - SERUM 3.8 mmol/L (3.5-5.1)
[2016-11-17 06:10] VITALS: BP 160/72
--- NOTE | 2016-11-17 07:59 | NUR ---
AM ROUNDS - PT APPEARS TO BE SLEEPING IN BED WITH EQUAL AND NON LABORED BREATHING. YELLOW BAND ON. PEG TUBE TO LUQ WITH MEPRO RUNNING AT 40CC/HR. IV TO TIGHT UPPER ARM, D5W AT 30CC/HR. COTTON. MONITOR SHOWING SR, HR 67. HOB > 40. BED AT LOWEST POSITION. CALL BOURGEOIS IN USE. SIDE RAILS UP X2. WILL CONTINUE TO MONITOR
--- NOTE | 2016-11-17 11:04 | NUR ---
Patient Name: ELSA IRVING Encounter No: [id number] : 1930 Primary Insurance: MEDICARE A & B Anticipated DC Date: Planned Disposition: Shelter Facility External Planned Provider: [facility], MEDICARE REHAB BED DCP follow-up note: CM SPOKE TO PT'S SPOUSE REGARDING DISCHARGE PLANNING AND NEEDS. SPOUSE WOULD LIKE REFERRALS SENT TO [facility] AND [facility]. CHOICE SIGNED. IMPORTANT MESSAGE FROM MEDICARE PROVIDED AND EXPLAINED. CM CALLED AND SPOKE TO [facility], , NOTIFIED OF REFERRAL, FAXED REFERRAL TO [facility] AT [phone]. CM CALLED AND SPOKE TO [facility], , NOTIFIED OF REFERRAL AND FAXED REFERRAL TO [facility] AT [phone]. CM WAITING ADMISSION DETERMINATIONS FROM [facility] AND [facility] FOR [facility]. Romain Noel, CASE MANAGEMENT
[2016-11-17 12:00] VITALS: BP 125/58
--- NOTE | 2016-11-17 14:46 | NUR ---
BLADDER TRAINING STARTED. EXPLAINED TO PT AND WHAT I WAS DOING, PURPOSE AND WHAT TO DO WHEN HE FEELS THE SENSATION TO URINATE. WILL F/U IN 2 HOURS. UNSURE IF PT UNSTOOD. WILL CONTINUE TO MONITOR READJUSTED FEEDING PUMP 100CC/Q6HR FLUSH
--- NOTE | 2016-11-17 14:59 | NUR ---
Patient Name: ELSA IRVING Encounter No: [id number] : 1930 Primary Insurance: MEDICARE A & B Anticipated DC Date: Planned Disposition: Detention Facility External Planned Provider: [facility] DCP follow-up note: CM ATTEMPTED TO SPEAK TO PT IN ROOM, PT CONFUSED AND CM COULD NOT UNDERSTAND PT. PT'S SPOUSE ARRIVED AND ASSISTED WITH COMPLETION OF GERMAN SCREENING FORMS. DR. ROACH REVIEWED AND SIGNED. CM FAXED COMPLETED GERMAN ASSESSMENT WITH SUPPORTING DOCUMENTS TO [facility] AT [phone]. CM WAITING GERMAN SCREENING COMPLETION AND [facility]. Romain Noel, CASE MANAGEMENT
--- NOTE | 2016-11-17 19:30 | NUR ---
PT. IN BED WITH HOB UP FOR TF ASPIRATION PRECAUTIONS. ASSESSMENT COMPLETED. TF RUNNING AT 40CC/HR WITH H2O FLUSHES EVERY 6 HRS OF 100CC'S. BLADDER TRAINING CONTINUES WITHOUT PROBLEMS. 2 S.L. TO MEGAN PRESENT. PT'S SPEECH IS GARBLED AND UNABLE TO UNDERSTAND. SCD'S IN PLACE. CALL LIGHT WITHIN REACH.
[2016-11-17 21:40] VITALS: BP 144/43
[2016-11-18 01:20] VITALS: BP 162/82
--- NOTE | 2016-11-18 02:05 | NUR ---
PT. IS NO LONGER TREMBLING AND CONTINUES TO LABOR BREATHING. ASLEEP IN RECLINER NEXT TO PTPaco COTTON TO BSD.
--- NOTE | 2016-11-18 03:20 | NUR ---
PT. IN BED WITH HOB UP AT LEAST 40 DEGREES WITH TF OF NEPRO RUNNING AT 40CC/HR WITH Q 6HR WATER FLUSHES OF 100CC'S. EYES CLOSED AND RESP. LABORED. O2 VIA N/C CONTINUES. IN ROOM ASLEEP IN RECLINER. CALL LIGHT WITHIN REACH.
[2016-11-18 05:03] LABS: HEMOGLOBIN 11.1 g/dL (13.5-17.5); MCH 31.1 pg (26.0-34.0); MCHC 32.6 g/dL (31.0-37.0); MCV 95.2 fL (80.0-100.0); MEAN PLATELET VOLUME 9.7 fL (7.4-10.4); PLATELET COUNT 240 10x3/uL (130-400); RBC 3.57 10x6/uL (4.20-6.10); RDW 13.2 % (11.5-14.5); WBC 29.8 10x3/uL (4.8-10.8)
[2016-11-18 05:22] LABS: ANION GAP 13.7 mmol/L (8-16); CALCIUM 8.5 mg/dL (8.5-10.1); CARBON DIOXIDE 23.4 mmol/L (21.0-32.0); POTASSIUM - SERUM 4.1 mmol/L (3.5-5.1)
[2016-11-18 05:23] LABS: PHOSPHOROUS 2.5 mg/dL (2.5-4.9)
[2016-11-18 05:26] LABS: LYMPHOCYTES 3 % (15-50); MONOCYTES 6 % (2-11); NEUTROPHILS 91 % (40-80); PLATELET ESTIMATE NORMAL
[2016-11-18 05:43] VITALS: BP 108/58
--- NOTE | 2016-11-18 07:40 | NUR ---
PATIENT ASLEEP. COOL AND CLAMMY. AT BEDSIDE. WILL CONTINUE TO MONITOR.
--- NOTE | 2016-11-18 08:20 | NUR ---
BLOOD CULTURES DRAWN. EXPLAINED TO ABOUT LABS, ELEVATED WBCS AND PLAN OF CARE TODAY.
[2016-11-18 08:44] VITALS: BP 100/49
--- NOTE | 2016-11-18 10:18 | NUR ---
Nutrition Follow Up: Pt is tolerating TF of Nepro @ 40 ml/hr. Wt loss since admit noted. +BM 11/09/16. Labs reviewed. Meds noted including Prednisone, Thiamine. Rec continue current TF per Renal. RD following.
[2016-11-18 12:04] VITALS: BP 126/65
--- NOTE | 2016-11-18 12:59 | NUR ---
Patient Name: ELSA IRVING Encounter No: [id number] : 1930 Primary Insurance: MEDICARE A & B Anticipated DC Date: Planned Disposition: Intermediate Facility External Planned Provider: [facility], MEDICARE REHAB BED DCP follow-up note: CM MET WITH PT'S SPOUSE IN ROOM; PT'S SPOUSE INFORMED OF DENIAL BY RENATO CONNELL, SPOUSE STILL REQUESTING PLACEMENT FOR REHAB AT [facility]. CM ALSO PROVIDED INFORMATION ON LOCAL NURSING FACILITIES IN CASE PT IS DENIED BY [facility]. CM RECEIVED [facility] APPROVAL FOR UP TO 60 DAYS IN [facility]. COPY TO CHART. CM WAITING ADMISSION DETERMINATION FROM [facility] FOR REHAB SERVICES. Romain Noel, CASE MANAGEMENT
--- NOTE | 2016-11-18 14:40 | NUR ---
CHECKED PT'S TUBE FEEDING REDIUALS. PULLED BACK 650CC. HOOKED UP TO SUCTION AND SUCTION PULLED OUT ANOTHER 100CC. TURNED TUBE FEEDING OFF AND PAGED ARTEM GODOY. AWATING CALL BACK. WILL CONTINUE TO MONITOR.
--- NOTE | 2016-11-18 15:20 | NUR ---
SPOKE WITH ARTEM GODOY, ABOUT FEEDING TUBE RESIDUAL. WALT INSTRUCTED ME TO CALL THE SERGEON THAT PLACED THE FEEDING TUBE. CALLED DR. HERMAN, PERSON WHO PLACED TUBE, DR. HERMAN SAID CRANE FEEDING UP AND RUN TO GRAVITY WITH A COTTON BAG FOR RESIDUAL. START REGLAN 10MG IVP Q8H AND A STAT ABD XRAY. WILL CONTINUE TO MONITOR
[2016-11-18 15:41] VITALS: BP 125/47
--- NOTE | 2016-11-18 17:11 | NUR ---
PT IN BED. WENT HOME FOR A LITTLE WHILE. FEEDING TUBE IN GOING AT 10CC/HR AND DRAINING RESIDUAL INTO A COTTON BAG. HOB IS AT 60 DG. PT HAS IRREGULAR BREATHING. SAT AT 99% ON 4L O2. WILL CONTINUE TO MONITOR
[2016-11-18 19:00] VITALS: BP 122/49
--- NOTE | 2016-11-18 19:50 | NUR ---
TALK TO PT AT BED SIDE.
--- NOTE | 2016-11-19 00:01 | NUR ---
CHECK PT RESIDUAL: 11ML
[2016-11-19 01:34] LABS: APPEARANCE TURBID (CLEAR); BACTERIA MANY /hpf (NONE SEEN); BILIRUBIN NEGATIVE (NEGATIVE); COLOR YELLOW (YELLOW); EPITHELIAL CELLS NSEEN /hpf (0-5); GLUCOSE NEGATIVE (NEGATIVE); KETONE NEGATIVE (NEGATIVE); LEUKOCYTE ESTERASE 2+ (NEGATIVE); NITRITE NEGATIVE (NEGATIVE); PROTEIN 2+ mg/dL (NEGATIVE); RED CELLS - URINE >50 /hpf (0-5); UROBILINOGEN NORMAL (NORMAL); WHITE CELLS - URINE >50 /hpf (0-5)
--- NOTE | 2016-11-19 03:34 | NUR ---
REST QUIETLY IN BED, HEAD OF BED 35 DEGREE, BREATH EVEN AND REGULAR, NO ANY DISTRESS.
[2016-11-19 04:00] VITALS: BP 150/119
--- NOTE | 2016-11-19 04:14 | NUR ---
CHECK PT'S TUBING RESIDUAL IS 1ML.
[2016-11-19 04:23] LABS: BASOPHILS 0.1 % (0-2); EOSINOPHILS 0.3 % (0-7); HEMATOCRIT 31.9 % (42.0-54.0); HEMOGLOBIN 10.3 g/dL (13.5-17.5); IMMATURE GRANULOCYTES 0.5 % (0-5); LYMPHOCYTES 2.1 % (15-50); MCH 31.1 pg (26.0-34.0); MCHC 32.3 g/dL (31.0-37.0); MCV 96.4 fL (80.0-100.0); MEAN PLATELET VOLUME 9.8 fL (7.4-10.4); MONOCYTES 5.1 % (2-11); NEUTROPHILS 91.9 % (40-80); RBC 3.31 10x6/uL (4.20-6.10); RDW 13.5 % (11.5-14.5)
[2016-11-19 04:24] LABS: PLATELET COUNT 177 10x3/uL (130-400); WBC 17.3 10x3/uL (4.8-10.8)
[2016-11-19 04:49] LABS: ANION GAP 15.3 mmol/L (8-16); CALCIUM 8.2 mg/dL (8.5-10.1); CARBON DIOXIDE 24.6 mmol/L (21.0-32.0); CREATININE - SERUM 4.6 mg/dL (0.6-1.3); PHOSPHOROUS 5.7 mg/dL (2.5-4.9); POTASSIUM - SERUM 3.9 mmol/L (3.5-5.1); VANCOMYCIN - RANDOM 6.7 ug/mL (10.0-20.0)
--- NOTE | 2016-11-19 07:00 | NUR ---
INITIAL ROUNDS MADE. PT LYING IN BED RESTING WELL IN NO APPARENT DISTRESS. FAMILY IN ROOM AT BEDSIDE. REPOSITIONED PT FOR COMFORT. PEG TUBE WITH NEPRO INFUSING AT 40 CC/HR. O2 4L NC. COTTON TO GRAVITY.
[2016-11-19 08:00] VITALS: BP 114/52
--- NOTE | 2016-11-19 08:45 | NUR ---
AM MEDS GIVEN WITHOUT DIFFICULTY IN PEG TUBE. RESIDUAL CHECKED PRIOR TO COMPOSITION WEATHERBOARD APPLIER =<10 CC. NO NEEDS OR C/O AT THIS TIME.
--- NOTE | 2016-11-19 11:30 | NUR ---
FSBS 267, 6 UNITS GIVEN PER SS.
[2016-11-19 12:00] VITALS: BP 103/55
--- NOTE | 2016-11-19 14:00 | NUR ---
POSITIVE BLOOD CULTURES CALLED BY LAB INDICATING YEAST IN BLOOD.
[2016-11-19 16:00] VITALS: BP 134/54
--- NOTE | 2016-11-19 17:30 | NUR ---
POSITIVE BLOOD CULTURES CALLED BY LAB INDICATING GRAM (+) COCCI. FSBS 342, 8 UNITS INSULIN GIVEN PER SS.
[2016-11-19 19:00] VITALS: BP 143/63
--- NOTE | 2016-11-19 22:30 | NUR ---
PT INCONTINENT OF STOOL AT SHIFT CHANGE. INCONTINENT CARE DONE. PT REPOSITIONED IN BED FOR COMFORT. ASSESSMENT COMPLETED AT 2000 HRS. VSS. SR PER CM HR 84. PT OPENS TO PHYSICAL STIMULI THEN QUICKLY CLOSES EYES AND MOANS TO SELF. PT INCONTINENT OF STOOL AT 1999 HRS AND INCONTINENT CARE DONE. IV TO UPPER R ARM WITH NS AT 30CC/HR. O2 4LNC. COTTON DRAINING YELLOW URINE. LUNGS WITH COARSE RHONCHI TO UPPER LOBES, DIMINISHED IN LOWER LOBES. PT MOVES LOWER LEGS. DOES NOT MOVE ARMS. SCD'S REMOVED AND SKIN INSPECTED. NO BREAKDOWN NOTED. PEG TUBE CHECKED FOR RESIDULA WITH 5CC'S NOTED. NEPRO AT 40CC/HR TO PEG TUBE. TYLENOL 650MG SUPP PLACED FOR PT'S MOANING. PM EGS GIVEN VIA PEG. PT REPOSIIOTNED IN BED AT 2130 HRS. LOUD GURGLING NOTED TO BACK OF THROAT AT 2210 HRS. BACK OF THROAT SUCTIONED WITH MODERATED AMOUNT OF SECRETIONS NOTED. AT BEDSIDE. SR UP X2, CALL LIGHT WITHIN REACH AND BED ALARM ON.
[2016-11-20] VITALS: BP 123/47
--- NOTE | 2016-11-20 00:19 | NUR ---
SCHEDULED MEDS GIVEN. TUBE FEEDING BAG CHANGED. NEPRO INCREASED TO 50CC/HR. 5CC OF RESIUAL NOTED. PT INCONTINENT OF A LARGE AMOUNT OF STOOL. INCONTINENT CARE DONE. REPOSITIONED IN BED FOR COMFORT. AT BEDSIDE.
--- NOTE | 2016-11-20 01:53 | NUR ---
PT RESTING WITH EYES CLOSED. RESP EVEN AND REGULAR. SR UP X2, CALL LIGHT WITHIN REACH, BED ALARM ON AND AT BEDSIDE. NEPRO AT 50CC/HR. WILL CONTINUE TO MONITOR.
[2016-11-20 04:00] VITALS: BP 145/57
--- NOTE | 2016-11-20 04:36 | NUR ---
PT RESTING WITH EYES CLOSED. RESP EVEN AND REGULAR. SR UP X2, CALL LIGHT WITHIN REACH, BED ALARM ON AND AT BEDSDIE.
--- NOTE | 2016-11-20 06:28 | NUR ---
VSS TRHOUGHOUT NIGHT. ORAL CARE DONE X2 AND PT REPOSITIONED FREQ DURING SHIFT. LARGEST AMOUNT OF RESIDUAL CHECK TO PEG TUBE WAS 10CC. AM FSBS 261. 6 UNITS HUMALOG GIVEN SUB-Q TO UPPER L ARM. NEEDS MET; WILL CONTINUE TO MONITOR.
[2016-11-20 07:10] LABS: BASOPHILS 0 % (0-2); EOSINOPHILS 0.6 % (0-7); HEMATOCRIT 29.4 % (42.0-54.0); HEMOGLOBIN 9.7 g/dL (13.5-17.5); IMMATURE GRANULOCYTES 0.4 % (0-5); MCH 31.3 pg (26.0-34.0); MCV 94.8 fL (80.0-100.0); MEAN PLATELET VOLUME 10.3 fL (7.4-10.4); MONOCYTES 7.8 % (2-11); NEUTROPHILS 88.2 % (40-80); PLATELET COUNT 177 10x3/uL (130-400); RDW 13.6 % (11.5-14.5); WBC 15.6 10x3/uL (4.8-10.8)
--- NOTE | 2016-11-20 07:15 | NUR ---
RECEIVED REPORT. ASSUMED CARE OF PATIENT. PATIENT WITH EYES CLOSED, BARELY OPENS EYES TO CALL OF HIS NAME. RECEIVING NEBULIZER TREATMENT AT THIS TIME. AT BEDSIDE. COARSE CRACKLES THROUGHOUT THE LUNG FIELD. IV FLUIDS INFUSING AT ORDERED. TUBE FEEDING INFUSING ORDERED AT 40ML/HR. PATIENT DOES NOT ANSWER ANY QUESTIONS THAT ARE ASKED. PUPILS REACTIVE. RESPIRATIONS SHALLOW. COTTON CATH PATENT.
[2016-11-20 07:23] LABS: ALBUMIN 1.8 g/dL (3.4-5.0); ANION GAP 13.9 mmol/L (8-16); BILIRUBIN - TOTAL 0.27 mg/dL (0.2-1.3); CARBON DIOXIDE 24.3 mmol/L (21.0-32.0); CREATININE - SERUM 4.4 mg/dL (0.6-1.3); MAGNESIUM - SERUM 2.5 mg/dL (1.8-2.4); PHOSPHOROUS 3.8 mg/dL (2.5-4.9); POTASSIUM - SERUM 3.2 mmol/L (3.5-5.1); PROTEIN - SERUM 6.1 g/dL (6.4-8.2); VANCOMYCIN - RANDOM 10.1 ug/mL (10.0-20.0)
[2016-11-20 08:22] VITALS: BP 138/64
--- NOTE | 2016-11-20 11:18 | NUR ---
FSBS 229. 4 UNITS HUMALOG ADMINISTERED PER SLIDING SCALE. PATIENT WITH CONTINUOUS TUBE FEEDING INFUSING. AT BEDSIDE. NO DISTRESS.
--- NOTE | 2016-11-20 11:23 | NUR ---
ORAL CARE PROVIDED AT THIS TIME. NO DISTRESS.
[2016-11-20 12:10] VITALS: BP 150/66
--- NOTE | 2016-11-20 13:32 | NUR ---
RESTING IN BED WITH EYES CLOSED. PATIENT BARELY OPENS EYES TO ACKNOWLEDGE WIRE PULLER. ARMS ELEVATED ON PILLOWS FOR COMFORT. TOLERATING TUBE FEEDING WELL. IV FLUIDS INFUSING ORDERED. NO DISTRESS.
[2016-11-20 16:15] VITALS: BP 144/67
--- NOTE | 2016-11-20 17:00 | NUR ---
ORAL CAVITY SUCTIONED, SMALL AMOUNT OF SECRETIONS OBTAINED. ORAL CARE PROVIDED. CALL LIGHT WITH IN REACH. PATIENTS AT BEDSIDE. NO DISTRESS.
--- NOTE | 2016-11-20 19:41 | NUR ---
INITIAL ROUNDS COMPLETED. PT RESTING WITH EYES CLOSED. RESP EVEN AND REGULAR. SR UP X2, CALL LIGHT WITHIN REACH.
[2016-11-20 22:14] VITALS: BP 102/57
--- NOTE | 2016-11-20 22:35 | NUR ---
ASSESSMENT COMPLETED AT 2004 HRS. VSS. SR WITH OCC PVC/'S HR 98. O2 4LNC. COARSE CRACKLES NOTED BILAT. IV TO UPPER R ARM WITH NS AT 100CC/HR. IV PATENT. PEG TUBE WITH NEPRO AT 40CC/HR. 5CC RESIDUAL NOTED. PT MOVING R ARM AND BILAT LEGS MOVE WITH STIMULATION. L ARM FLACCID. PT OPENS EYES TO LOUD VERBAL STIMULI THEN QUICKLY FALLS BACK TO SLEEP. SCD'S REMOVED AND SKIN INSPECTED. NO BREAKDOWN NOTED. COTTON DRAINING YELLOW URINE. PT INCONTINENT OF SMALL AMOUNT OF STOOL. INCONTINENT CARE DONE. PT REPOSITIONED IN BED AT THAT TIME. PM FSBS 315. PM INSULIN GIVEN PER ORDERS. BACK OF PT'S THROAT SUCTIONED WITH THICK MUCUS NOTED. ORAL CARE DONE. NEW IV TUBING UP. PT CURRENTLY RESTING WITH EYES CLOSED. RESP EVEN AND REGULAR. SR UP X3, CALL LIGHT WITHIN REACHA ND BED ALARM ON.
--- NOTE | 2016-11-21 00:14 | NUR ---
PT RETING WITH EYES CLOSED. RESP EVEN AND REGULAR. AUDIBLE CRACKLES HEARD. WILL CONTINUE TO MONITOR. SR UP X3, CALL LIGHT WITHIN REACH AND BED ALARM ON.
[2016-11-21 00:45] VITALS: BP 156/68
--- NOTE | 2016-11-21 02:11 | NUR ---
REPOSITIONED IN BED FOR COMFORT. BACK OF THROAT SUCTIONED WITH SMALL AMOUNT OF MUCUS NOTED. ORAL CARE DONE. NEW TUBE FEEDING BAG HUNG WITH NEPRO AT 40CC/HR. WILL CONTINUE TO MONITOR.
[2016-11-21 04:00] VITALS: BP 154/46
[2016-11-21 04:43] LABS: BASOPHILS 0 % (0-2); EOSINOPHILS 0.1 % (0-7); HEMATOCRIT 28.5 % (42.0-54.0); HEMOGLOBIN 9.3 g/dL (13.5-17.5); IMMATURE GRANULOCYTES 0.5 % (0-5); LYMPHOCYTES 5.5 % (15-50); MCH 30.9 pg (26.0-34.0); MCHC 32.6 g/dL (31.0-37.0); MCV 94.7 fL (80.0-100.0); MEAN PLATELET VOLUME 9.4 fL (7.4-10.4); MONOCYTES 4.7 % (2-11); NEUTROPHILS 89.2 % (40-80); PLATELET COUNT 174 10x3/uL (130-400); RBC 3.01 10x6/uL (4.20-6.10); RDW 13.8 % (11.5-14.5); WBC 16.1 10x3/uL (4.8-10.8)
--- NOTE | 2016-11-21 04:52 | NUR ---
PT RESTING WITH EYES CLOSED. RESP EVEN AND REGULAR. GURGLING NOISE NOTED TO BACK OF THROAT. PT SUCTIONED WITH A SMALL AMOUNT OF MUSCUS NOTED. WILL CONTINUE TO MONITOR.
[2016-11-21 05:07] LABS: ANION GAP 13.4 mmol/L (8-16); CALCIUM 7.9 mg/dL (8.5-10.1); CARBON DIOXIDE 23.3 mmol/L (21.0-32.0); CREATININE - SERUM 3.8 mg/dL (0.6-1.3); MAGNESIUM - SERUM 2.4 mg/dL (1.8-2.4); POTASSIUM - SERUM 3.7 mmol/L (3.5-5.1); VANCOMYCIN - RANDOM 16.1 ug/mL (10.0-20.0)
--- NOTE | 2016-11-21 06:34 | NUR ---
VSS THROUGHOUT NGIHT. SR PER CM. AM FSBS 230. HUMALOG S/S GIVEN. PT DEEP [id number] NUMEROUS TIMES DURING SHIFT. NEEDS MET; WILL CONTINUE TO MONITOR.
--- NOTE | 2016-11-21 06:48 | NUR ---
PT INCONTINENT OFSMALL AMOUNT OF STOOL. INCONTINENT CARE AND COTTON CARE DONE. PT REPOSITIONED IN BED FOR COMFORT. WILL CONTINUE TO MONITOR.
--- NOTE | 2016-11-21 07:00 | NUR ---
REPORT RECIEVED ASSUMED CARE. PATIENT IN BED WITH IV INTACT. NO COMPLAINTS AT THIS TIME. CALL LIGHT WITHIN REACH.
[2016-11-21 08:00] VITALS: BP 175/62
--- NOTE | 2016-11-21 08:00 | NUR ---
PATIENT IN BED EYES CLOSED RESTING QUIETLY. O2 ON NO SIGNS OF DISTRESS. IVF CHANGED ORDERED. CALL LIGHT WITHIN REACH.
--- NOTE | 2016-11-21 08:42 | NUR ---
Patient Name: ELSA IRVING Encounter No: [id number] : 1930 Primary Insurance: MEDICARE A & B Anticipated DC Date: Planned Disposition: Snf Facility External Planned Provider: [facility], MEDICARE REHAB BED DCP follow-up note: CM FAXED REFERRAL UPDATE WITH [facility] APPROVAL TO [facility] AT [phone]. RENATO CONNELL HAS DECLINED PT. CM WAITING ADMISSION DETERMINATIONS FROM [facility] FOR REHAB SERVICES. Romain Noel, CASE MANAGEMENT
[2016-11-21 12:00] VITALS: BP 177/72
--- NOTE | 2016-11-21 12:00 | NUR ---
PATIENT IN BED WITH IV INTACT. RESIDUAL CHECKED AND WNL. NO COMPLAINTS OR SIGNS OF DISTRESS. CALL LIGHT WITHIN REACH.
--- NOTE | 2016-11-21 13:18 | NUR ---
Nutrition follow-up: NPO Nepro continues infusing @ 40 ml/hr Labs reviewed. Glucose readings all > 250 ml; pt on steroids. Wt: 199# Tolerating TF at this time RDN continues to monitor pateints progress.
[2016-11-21 16:00] VITALS: BP 123/66
--- NOTE | 2016-11-21 16:24 | NUR ---
NOTIFIED WALT BOWMAN ABOUT PATIENTS TEMP OF 100.9. STATED TO GIVE TYLENOL AT THIS TIME. NO FURTHER ORDERS. WILL CONTINUE TO MONITOR.
--- NOTE | 2016-11-21 17:15 | NUR ---
PATIENT GIVEN TYLENOL SUPPOSITORY AT THIS TIME.
--- NOTE | 2016-11-21 18:45 | NUR ---
PATIENT IN BED RESTING QUIETLY AT THIS TIME. IV INTACT. FAMILY AT BEDSIDE. CALL LIGHT WITHIN REACH.
--- NOTE | 2016-11-21 19:15 | NUR ---
PATIENT IN BED WITH IV INTACT. NO COMPLAINTS AT THIS TIME. PEG TUBE INFUSING AND WNL. CALL LIGHT WITHIN REACH.
[2016-11-21 19:45] VITALS: BP 132/67
--- NOTE | 2016-11-21 22:15 | NUR ---
PATIENT RECIEVED BATH AND CHANGED AT THIS TIME. PEG TUBE AND ABDOMENIL BINDER WNL. IV INTACT. COTTON INTACT. BSCDS PLACED BACK ON LEGS. BED ALARM ON. PATIENT MORE AWAKE AND SPEAKING A SMALL AMOUNT. ASKED RT WHERE IS. NO COMPLAINTS OR SIGNS OF DISTRESS. CALL LIGHT WITHIN REACH.
--- NOTE | 2016-11-21 23:15 | NUR ---
REPORT GIVEN TO BROCK TILLMAN. PATIENT IN BED RESTING QUIETLY. CALL LIGHT WITHIN REACH.
--- NOTE | 2016-11-21 23:44 | NUR ---
RESTING IN BED WITH EYES CLOSED. NO S/S OF DISTRESS OBSERVED. PEG TUBE CHECKED FOR PATENCY AND ZERO ASPIRATED. NEPRO INFUSING AT 40ML PER HOUR WITH 100ML PER HOUR FLUSH PER PUMP. HOB ELEVATED TO 30 DEGREES. SALINE LOCK TO RIGHT UPPER ARM PATENT WITH D5W INFUSING AT 60CC HOUR. DRESSING TO SITE IS CLEAN, DRY AND INTACT. NO REDNESS OR SWELLING OBSERVED. O2@ 4 LITERS PER N/C IN PLACE. RESPIRATIONS EVEN AND UNLABORED. FREQUENT COUGH AND SUCTIONED PER ORDERS. F/C PATENT WITH CLEAR STRAW COLOR URINE DRAINING TO BEDSIDE DRAINAGE SYSTEM. REPOSITIONED FOR COMFORT AND PRESSURE RELIEF. REMAINS ON AIR MATTRESS. SCD'S IN PLACE. BINDER TO ABDOMEN IN PLACE.
[2016-11-22 01:25] VITALS: BP 127/47
--- NOTE | 2016-11-22 01:31 | NUR ---
COUGH HAS BECOME MORE FREQUENT. SUCTION PROVIDED WITH THICK YELLOW SECRETIONS RETURNED. PT ABLE TO CLEAR SOME SECRETIONS. ORAL CARE PROVIDED BY THIS NURSE AND ORAL MOISTURIZER.
--- NOTE | 2016-11-22 03:48 | NUR ---
CONTINUES TO HAVE PRODUCTIVE COUGH. DARK YELLOW IN COLOR AND THICK. SUCTIONED SEVERAL TIME AND RESP. CALLED TO ASSIST. UPDRAFT GIVEN AND FINALLY COUGH SUBSIDED. HEAD OF BED ELEVAQTED AND TURNED AND REPOSITIONED FOR PRESSURE RELIEF AND COPMFORT.
[2016-11-22 05:02] VITALS: BP 170/68
[2016-11-22 05:39] LABS: BASOPHILS 0 % (0-2); EOSINOPHILS 0.6 % (0-7); HEMATOCRIT 29.3 % (42.0-54.0); HEMOGLOBIN 9.4 g/dL (13.5-17.5); IMMATURE GRANULOCYTES 0.4 % (0-5); LYMPHOCYTES 4.6 % (15-50); MCH 30.6 pg (26.0-34.0); MCHC 32.1 g/dL (31.0-37.0); MCV 95.4 fL (80.0-100.0); MEAN PLATELET VOLUME 10.1 fL (7.4-10.4); MONOCYTES 7.8 % (2-11); NEUTROPHILS 86.6 % (40-80); PLATELET COUNT 202 10x3/uL (130-400); RBC 3.07 10x6/uL (4.20-6.10); WBC 12.5 10x3/uL (4.8-10.8)
[2016-11-22 06:04] LABS: ANION GAP 13.6 mmol/L (8-16); CALCIUM 8.3 mg/dL (8.5-10.1); CARBON DIOXIDE 23.6 mmol/L (21.0-32.0); CREATININE - SERUM 3.7 mg/dL (0.6-1.3); PHOSPHOROUS 3.5 mg/dL (2.5-4.9); POTASSIUM - SERUM 3.2 mmol/L (3.5-5.1); VANCOMYCIN - RANDOM 20.1 ug/mL (10.0-20.0)
[2016-11-22 08:57] VITALS: BP 123/58
--- NOTE | 2016-11-22 10:33 | NUR ---
0715- AM ROUNDING- RECEIVED REPORT FROM OUTREACH SPECIALIST NURSE BROCK. PT IS CURRETNLY LAYING IN BED WITH HOB ELEVATED AT 30 DEGREES WITH EYES OPEN RESTING. PT HAS NO S/S OF DISTRESS AT THIS TIME. DNR PER ORDER. ON 02 AT 4L VIA NC. ON MONITOR SHOWING SR, HR 70 WITH BBB (PER TATIANNA IN TELEMETRY). IV SEEN TO RIGHT UPPER ARM/SHOULDER AREA WITH D5W RUNNING AT 60CC. PEG TUBE SEEN TO MID UPPER ABDOMINAL AREA WITH NEPHRO RUNNING AT 40CC, WATER FLUSHES SET AT 100CC Q6H PER ORDER. COTTON CATHETER SEEN WITH CLEAR, YELLOW URINE. BED ALARM IS ON, BED IS IN LOW POSITION, SIDE RAILS ARE UP X2, CALL LIGHT IS IN REACH, AND NON-SKID SOCKS ARE ON. WILL CONTINUE TO MONITOR AND CONTINUE WITH PLAN OF CARE.
--- NOTE | 2016-11-22 10:45 | NUR ---
AUDIOVISUAL PRODUCTION SPECIALIST AND I TURNED PT ON LEFT SIDE. IS AT BEDSIDE AND CALL LIGHT IS IN REACH. WILL CONTINUE TO MONITOR.
--- NOTE | 2016-11-22 10:45 | NUR ---
PTS IV FLUIDS (D5W) TURNED DOWN TO 40CC ORDERED.
[2016-11-22 12:29] VITALS: BP 150/65
--- NOTE | 2016-11-22 15:51 | NUR ---
1135- SUCTIONED PTS MOUTH ORDERED. JASMINA WITH RESP CAME IN AND SUCTIONED PT FURTHER NEEDED.
--- NOTE | 2016-11-22 15:52 | NUR ---
BOTH TREVOR WITH PHYSICAL THERAPY GOT PT UP TO SIDE OF BED. PHAN PT STATES IT TOOK BOTH OF THEM TO HOLD PT UP ON SIDE OF BED. PAHN PT STATES PT HAD LEFT SIDED WEAKNESS. PT ASSISTED BACK TO BED. BED ALARM IS ON, BED IS IN LOW POSITION, SIDE RAILS ARE UP X2, CALL LIGHT IS IN REACH, AND NON-SKID SOCKS ARE ON. WILL CONTINUE TO MONITOR.
[2016-11-22 15:59] VITALS: BP 153/72
--- NOTE | 2016-11-22 17:07 | NUR ---
PT IS CURRENTLY SITTING UP IN BED WITH HOB ELEVATED AT 30 DEGREES WITH EYES CLOSED RESTING. TUBE FEEDINGS AND IV FLUIDS RUNNING ORDERED. BED ALARM IS ON. BED IS IN LOW POSITION, SIDE RAILS ARE UP X2, AND CALL LIGHT IS IN REACH. WILL CONTINUE TO MONITOR.
[2016-11-22 19:00] VITALS: BP 118/67
--- NOTE | 2016-11-22 19:46 | NUR ---
PT LYING IN BED, EYES CLOSED, RESPIRATIONS EVEN AND UNLABORED. PT IS IS NO ACUTE DISTRESS AT THIS TIME. CONTINUE TO MONITOR CLOSELY. BED LOW, CALL LIGHT IN REACH, SIDE RAILS X 2. HOB 30-35 DEGREES.
--- NOTE | 2016-11-23 01:57 | NUR ---
FEEDING BAG/FLUSH CHANGED OUT @ 0100 WITH NEPRO ADDED AND H20 FOR FLUSH. FEEDING RESTARTED AT 40MLS/HR WITH 100ML FLUSH Q 6 HOURS. PTS HOB IS 35 DEGREES, NO RESIDUAL PRESENT, PT RESTING COMFORTABLY, TURNED TO LEFT SIDE, PULLED UP IN BED, DENIES ANY NEEDS. CONTINUE TO MONITOR PT CLOSELY.
[2016-11-23 04:14] VITALS: BP 170/72
--- NOTE | 2016-11-23 04:52 | NUR ---
PT RESTING COMFORTABLY, IN NO ACUTE DISTRESS. PTS HOB REMAINS AT 30-35 DEGREES, TUBE FEEDING PATENT, NO RESIDUAL, NO NEEDS AT THIS TIME. CONTINUE TO MONITOR CLOSELY. BED LOW, CALL LIGHT IN REACH, SIDE RAILS X 2, BED ALARM ON.
[2016-11-23 04:54] LABS: BASOPHILS 0.4 % (0-2); EOSINOPHILS 3.6 % (0-7); HEMATOCRIT 30.3 % (42.0-54.0); HEMOGLOBIN 9.7 g/dL (13.5-17.5); IMMATURE GRANULOCYTES 0.8 % (0-5); LYMPHOCYTES 9.5 % (15-50); MCH 30.8 pg (26.0-34.0); MCV 96.2 fL (80.0-100.0); MEAN PLATELET VOLUME 10.1 fL (7.4-10.4); MONOCYTES 6.9 % (2-11); NEUTROPHILS 78.8 % (40-80); PLATELET COUNT 206 10x3/uL (130-400); RBC 3.15 10x6/uL (4.20-6.10); RDW 14.3 % (11.5-14.5); WBC 11.4 10x3/uL (4.8-10.8)
[2016-11-23 05:14] LABS: CALCIUM 8.4 mg/dL (8.5-10.1); CARBON DIOXIDE 22.7 mmol/L (21.0-32.0); CREATININE - SERUM 3.1 mg/dL (0.6-1.3); PHOSPHOROUS 3.4 mg/dL (2.5-4.9); VANCOMYCIN - RANDOM 15.5 ug/mL (10.0-20.0)
[2016-11-23 05:16] LABS: POTASSIUM - SERUM 3.7 mmol/L (3.5-5.1)
--- NOTE | 2016-11-23 07:43 | NUR ---
AM ROUNDING- RECEIVED REPORT FROM CULINARY DIRECTOR NURSE MAGDY. PT IS CURRENTLY SITTING UP IN BED WITH HOB ELEVATED AT 30 DEGREES WITH EYES CLOSED RESTING. DRN PER ORDER. ON 02 AT 4L VIA NC. ON MONITOR SHOWING SR, HR 64. IV SEEN TO LEFT UPPER ARM WITH D5W RUNNING AT 40CC. PEG TUBE SEEN TO MID UPPER ABDOMINAL AREA COVERED BY ABDOMINAL BINDER WITH TUBE FEEDINGS RUNNING AT 40CC. COTTON CATHETER SEEN WITH CLEAR, YELLOW URINE. BED ALARM IS ON. BED IS IN LOW POSITION, SIDE RAILS ARE UP X2, AND CALL LIGHT IS IN REACH. WILL CONTINUE TO MONITOR.
[2016-11-23 08:49] VITALS: BP 164/55
[2016-11-23 11:58] VITALS: BP 179/76
--- NOTE | 2016-11-23 13:20 | NUR ---
Patient Name: ELSA IRVING Encounter No: [id number] : 1930 Primary Insurance: MEDICARE A & B Anticipated DC Date: 11-25-2016 Planned Disposition: Intermediate Facility External Planned Provider: [facility], MEDICARE REHAB BED DCP follow-up note: CM CALLED AND SPOKE TO [facility]AME OF [facility], , ANSWERED QUESTIONS FROM CHART; MAAME REPORTS PT APPEARS TO BE OK FOR REHAB AT [facility] AND THEY WILL NOW CHECK PT'S MEDICARE DAYS. CM FAXED REFERRAL UPDATE TO [facility] AT [phone]. RENATO CONNELL HAS DECLINED PT. PT'S SPOUSE UPDATED BY CM IN PT'S ROOM. PT'S SPOUSE STILL IN AGREEMENT WITH DISCHARGE TO REHAB AT [facility]. CM WAITING ADMISSION DETERMINATIONS FROM [facility] FOR REHAB SERVICES. Romain Noel, CASE MANAGEMENT
[2016-11-23 16:09] VITALS: BP 159/72
--- NOTE | 2016-11-23 17:58 | NUR ---
JOHN PAGE AND I CLEANED PT UP AFTER HAVING BM, PT IS INCONTINENT. TURNED PT ON LEFT SIDE. HOB IS ELEVATED AT 30 DEGREES. BED ALARM IS ON. BED IS IN LOW POSITION, SIDE RAILS ARE UP X2, AND CALL LIGHT IS IN REACH. WILL CONTINUE TO MONITOR.
[2016-11-23 20:00] VITALS: BP 136/63
--- NOTE | 2016-11-23 20:04 | NUR ---
LYING IN BED WITH EYES OPEN AND SPOUSE AT BEDSIDE. LEFT HAND DEPENDENT EDEMA. IV TO RIGHT UPPER ARM WITH D5W AT 40ML HOUR INFUSING. COTTON CATHETER PATENT WITH CLEAR STRAW COLOR URINE DRAINING TO BED SIDE DRAINAGE SYSTEM. PEG TUBE CHECKED FOR PATENCY AND 5 CC ASPIRATED. NEPRO INFUSING AT 40ML AND HOUR. HEAD OF BED ELEVATED AT LEAST 30 DEGREES. UPDRAFT BEING ADMINISTERED AT THIS TIME.
--- NOTE | 2016-11-23 22:00 | NUR ---
RESTING IN BED WITH EYES CLOSED. NO S/S OF DISTRESS OBSERVED. 02@ 4 LITER PER NASAL CANNUL IN PLACE. PEG TIBE CHECKED FOR PATENCY WITH LESS THAN 5CC ASPIRATED. PEGTUBE PATENT AND NEPRO RUNNING AT 40CC AN HOUR WITH 100CC FLUSH EVERY 6 HOURS PER PUMP. HEAD OF BED ELEVATED. NO COUGH OBSERVED.LUNG SOUNDS RONCHI TO RLL AND RML ALSO RUL. JESSICA RONCHI. DIMINISHED LLL. CONTINUES TO RECIEVE ZOSY IV. NO ADVERSE SIDE EFFECTS OBSERVED.
[2016-11-24] VITALS (7 sets, daily range): BP systolic 150–166; BP diastolic 68–81
--- NOTE | 2016-11-24 00:26 | NUR ---
LYING IN BED WITH EYES CLOSED. NO S/S OF DISTRESS OBSERVED. NONVERBAL TO NEEDS. F/C PATENT WITH STRAW COLOR URINE DRAINING TO BEDSIDE DRAINAGE SYSTEM. O2@ 4 LITERS PER N/C. RESPIRATIONS EVEN AND UNLABORED. PEG TUBE CHECKED FOR RESIDUAL WITH 15CC RETURN.
--- NOTE | 2016-11-24 02:03 | NUR ---
LYING IN BED WITH EYES CLOSED. MAKEING GROANING SOUNDS PERIODICALLY. REPOSITIONED AND STOPPED GROANING. IV TUBING CHANGED AND NEW BAG OF D5W PLACE. TUBE FEEING BAGS CHANGED ALSO. HEAD OF BED ELEVATED AND AGATHA PROMINENCES PROPED UP ON PILLOWS FOR COMFORT AND TO RELEIVE PRESSURE.
--- NOTE | 2016-11-24 04:00 | NUR ---
RESTING IN BED WITH EYES CLOSED. NO S/S OF DISTRESS OBSERVED. HEAD OF BED ELEVATED. TURNED AND REPOSITIONED FOR PRESSURE RELIEF ANF COMFORT. O2@4 LITERS PER N/C IN PLACE. RESPIRATIONS EVEN AND UNLABORED.
[2016-11-24 05:54] LABS: BASOPHILS 0.2 % (0-2); EOSINOPHILS 4.2 % (0-7); HEMATOCRIT 31.4 % (42.0-54.0); HEMOGLOBIN 10.3 g/dL (13.5-17.5); IMMATURE GRANULOCYTES 1.2 % (0-5); LYMPHOCYTES 8.5 % (15-50); MCH 30.9 pg (26.0-34.0); MCHC 32.8 g/dL (31.0-37.0); MCV 94.3 fL (80.0-100.0); MEAN PLATELET VOLUME 11.8 fL (7.4-10.4); NEUTROPHILS 78.9 % (40-80); PLATELET COUNT 199 10x3/uL (130-400); RBC 3.33 10x6/uL (4.20-6.10); RDW 13.9 % (11.5-14.5)
--- NOTE | 2016-11-24 06:10 | NUR ---
LYING IN BED WITH EYES OPEN. HOB ELEVATED TO 30 DEGREES. PEG TUBE INFUSING NEPRO @ 40CC/HR WITH 100CC FLUSH Q6 HRS. CONTINUES TO RECIEVE ZOSYN.NO ADVERSE SIDE EFFECTS OBSERVED. D5W INFUSING AT 40CC/HR. IV TO RIGHT UPPER ARM PATENT. FLUSHED PER ORDERS.
[2016-11-24 06:23] LABS: ANION GAP 14.4 mmol/L (8-16); CALCIUM 8.2 mg/dL (8.5-10.1); CARBON DIOXIDE 23.9 mmol/L (21.0-32.0); CREATININE - SERUM 3.1 mg/dL (0.6-1.3); PHOSPHOROUS 3.2 mg/dL (2.5-4.9); POTASSIUM - SERUM 3.3 mmol/L (3.5-5.1); VANCOMYCIN - RANDOM 12.6 ug/mL (10.0-20.0)
--- NOTE | 2016-11-24 07:30 | NUR ---
AM ROUNDING DONE WITH PATIENT APPEARING TO BE ASLEEP, RESP ARE EVEN AND NON LABORED AT THIS TIME. BILATERAL CRACKLES HEARD THROUGHOUT THE LUNG CHILDERS. LEFT UPPER ARM SEEN WITH D5W INFUSING AT 40 CC/HR. ON 4L PER NC. PATIENT IS DNR CODE STATUS. ON HEART MONITOR SHOWING SR W BBB, HR 62, HAS OCC PAC. PEG TUBE WITH NEPHRO INFUSING AT 40 CC/HR WITH 100 CC WATER FLUSH EVERY 6 HOURS. COTTON CATH PATENT. 2-3+ EDEMA SEEN TO LEFT HAND. WILL CPOC.
--- NOTE | 2016-11-24 07:55 | NUR ---
Patient Name: ELSA IRVING Encounter No: [id number] : 1930 Primary Insurance: MEDICARE A & B Anticipated DC Date: 11-25-2016 Planned Disposition: [facility] Facility External Planned Provider: [facility], MEDICARE REHAB BED DCP follow-up note: CM FAXED REFERRAL UPDATE TO [facility] AT [phone] WITH NOTE OF ANTICIPATED DISCHARGE FOR 11-25-16. RENATO CONNELL HAS DECLINED PT. CM WAITING ADMISSION DETERMINATIONS FROM [facility] FOR REHAB [facility]. Romain Noel, CASE MANAGEMENT
--- NOTE | 2016-11-24 09:33 | NUR ---
IV TO RIGHT UPPER SHOULDER AREA STARTING TO LEAK. YOLANDE SAWYER, CHICK GRADER NURSE CALLED TO RE-SITE.
--- NOTE | 2016-11-24 10:04 | NUR ---
IV OF 22 G RE-SITED PER YOLANDE SAWYER, CLOTH EDGE SINGER NURSE TO RIGHT HAND. OLD IV REMOVED WITH CATH TIP INTACT.
--- NOTE | 2016-11-24 13:34 | NUR ---
Nutrition follow-up: NPO Nepro infusing @ 40 ml/hr with 100 ml H2O flush Q 4 hours Labs reviewed Wt: 204# Pt continues to tolerate TF regimen RDN following.
--- NOTE | 2016-11-24 19:20 | NUR ---
PT IN BED WITH HOB UP FOR COMFORT. EYES CLOSED. RESP. EVEN. GROANING. PT'S CODE STATUS IS DNR. NPO. PEG TUBE NEPHRO 40CC/HR. COTTON CATH. TELEMETRY. FSBS ACHS. RIGHT HAND D5W @ 40ML/HR. 02 @ 4L VIA N/C. BED IN LOWEST POSITION AND CALL LIGHT WITHIN REACH.
[2016-11-25] VITALS: BP 141/68
[2016-11-25 04:35] VITALS: BP 175/72
[2016-11-25 04:46] LABS: BASOPHILS 0.2 % (0-2); EOSINOPHILS 4.8 % (0-7); HEMATOCRIT 30.8 % (42.0-54.0); IMMATURE GRANULOCYTES 1.1 % (0-5); LYMPHOCYTES 9.4 % (15-50); MCH 30.3 pg (26.0-34.0); MCHC 32.5 g/dL (31.0-37.0); MCV 93.3 fL (80.0-100.0); MEAN PLATELET VOLUME 10.2 fL (7.4-10.4); NEUTROPHILS 78.5 % (40-80); RDW 13.8 % (11.5-14.5); WBC 10.1 10x3/uL (4.8-10.8)
[2016-11-25 04:47] LABS: PLATELET COUNT 249 10x3/uL (130-400)
[2016-11-25 05:00] LABS: ANION GAP 12.1 mmol/L (8-16); CALCIUM 8.7 mg/dL (8.5-10.1); CARBON DIOXIDE 23.1 mmol/L (21.0-32.0); CREATININE - SERUM 2.8 mg/dL (0.6-1.3); PHOSPHOROUS 3.6 mg/dL (2.5-4.9); POTASSIUM - SERUM 3.2 mmol/L (3.5-5.1); VANCOMYCIN - RANDOM 19.2 ug/mL (10.0-20.0)
--- NOTE | 2016-11-25 07:21 | NUR ---
AM ROUNDS- PT IN BED, WITH EYES CLOSED, MOANING AND GRUNTING. DOES NOT SEEM LIKE HE IS IN PAIN. AT BEDSIDE, BED LOW AND WHEELS LOCKED, BEDSIDE RAILS X2, BED ALARM ON. RT HAND INFUSING D5W AT 20CC/HR. PT ON 4L NC, FEEDING PUMP RUNNING AT 40CC/HR. TELEMETRY SHOWING 83SR. CALL LIGHT IN REACH, NAD NTOED, WILL CONTINUE TO MONITOR.
--- NOTE | 2016-11-25 07:55 | NUR ---
Patient Name: ELSA IRVING Encounter No: [id number] : 1930 Primary Insurance: MEDICARE A & B Anticipated DC Date: 11-25-2016 Planned Disposition: Prison Facility External Planned Provider: [facility], MEDICARE REHAB BED DCP follow-up note: CM CALLED AND LEFT MESSAGE WITH FURNITURE MAKER FOR [facility] OF [facility] , ASKING FOR ADMISSION DETERMINATION. CM FAXED REFERRAL UPDATE TO [facility] AT [phone] WITH NOTE OF ANTICIPATED DISCHARGE FOR TODAY. RENATO CONNELL HAS DECLINED PT. CM WAITING ADMISSION DETERMINATIONS FROM [facility] FOR REHAB SERVICES. Romain Noel, CASE MANAGEMENT
--- NOTE | 2016-11-25 08:48 | NUR ---
AM MEDS GIVEN VIA PEG TUBE, PT ONLY GRUNTS, NAD NOTED, CALLL LIGHT IN REACH, FAMILY AT BEDSIDE, NAD NOTED, WILL CONTINUE TO MONITOR.
[2016-11-25 09:33] VITALS: BP 167/69
--- NOTE | 2016-11-25 11:19 | NUR ---
BLOOD SUGAR OF 108, NO COVERAGE NEEDE PER S/S. PT IN BED, WITH EYES CLOSED, NAD NOTED, CALL LIGHT IN REACH, BED ALARM ON, WILL CONTINUE TO MONITOR.
--- NOTE | 2016-11-25 11:41 | NUR ---
Patient Name: ELSA IRVING Encounter No: [id number] : 1930 Primary Insurance: MEDICARE A & B Anticipated DC Date: 11-25-2016 Planned Disposition: [facility] Facility External Planned Provider: [facility], MEDICARE REHAB BED DCP follow-up note: CM CALLED AND SPOKE TO [facility]AME OF [facility], ; MAAME REPORTS THEY WILL ACCEPT PT LONG HE IS NOT NEEDING PROCRIT AFTER DISCHARGE. CM SPOKE TO PT'S SPOUSE IN ROOM, NOTIFIED OF ACCEPTANCE, IMPORTANT MESSAGE FROM MEDICARE PROVIDED AND EXPLAINED. PT'S SPOUSE IN AGREEMENT WITH DISCHARGE PLAN BUT IS HOPING THE DOCTORS WILL KEEP PT IN THE HOSPITAL OVER THE WEEKEND FOR MORE REHAB SPOUSE DOES NOT FEEL PT WILL GET ANY REHAB OVER THE WEEKEND AT [facility]. CM PAGED RENAL NURSE TO FIND OUT IF PT WILL NEED PROCRIT AFTER DISCHARGE. CM WAITING RETURN CALL FROM RENAL NURSE TO DETERMINE IF PT WILL REQUIRE PROCRIT AFTER DISCHARGE. [facility] WILL NOT ACCEPT PT IF PROCRIT IS REQUIRED. Romain Noel, CASE MANAGEMENT
[2016-11-25 12:04] VITALS: BP 160/71
--- NOTE | 2016-11-25 15:35 | NUR ---
COTTON D/C AT THIS TIME, 10CC OF FLUID REMOVED. PT TOLERATED PROCEDURE WELL. NAD NOTED, CALL LIGHT IN REACH, NO FAMILY AT BEDSIDE, WILL CONTINUE TO MONITOR.
--- NOTE | 2016-11-25 15:57 | NUR ---
Patient Name: ELSA IRVING Encounter No: [id number] : 1930 Primary Insurance: MEDICARE A & B Anticipated DC Date: 11-28-2016 Planned Disposition: Retirement Facility External Planned Provider: [facility], MEDICARE REHAB BED DCP follow-up note: CM SPOKE TO COLBY BLACK AND RENAL NURSE ALESSANDRO, DISCUSSED DISCHARGE MEDICATIONS AND WAS INFORMED PT WILL NOT REQUIRE PROCRIT FOR DISCHARGE. CM CALLED AND SPOKE TO MAAME OF [facility], ; NOTIFIED [facility] THAT PT WILL NOT REQUIRE PROCRIT AFTER DISCHARGE. REPORTS THEY WILL ACCEPT PT FOR REHAB. CM NOTIFED PT'S SPOUSE IN ROOM. FOR DISCHARGE, NURSE REPORT TO BE CALLED TO [facility] AT [phone], FAX DISCHARGE INFORMATION TO [facility] AT [phone]; PT TO TRANSPORT VIA AMBULANCE. Romain Noel, CASE MANAGEMENT
--- NOTE | 2016-11-25 16:03 | NUR ---
BLOOD SUGAR OF 95, NO COVERAGE NEEDED PER S/S. PT IN BED, WITH EYES CLOSED, RESP EVEN AND UNLABORED. CALL LIGHT IN REACH, BED ALARM ON, NAD NOTED, WILL CONTINUE TO MONITOR.
[2016-11-25 16:15] VITALS: BP 155/65
[2016-11-25 19:00] VITALS: BP 169/81
--- NOTE | 2016-11-25 19:15 | NUR ---
REPORT RECIEVED. PT ASLEEP IN BED. RR EVEN AND UNALBORED. NO SIGNS OF DISTRESS, PLACED NAME ON WHITE BOARD, WILL CTM.
--- NOTE | 2016-11-25 20:05 | NUR ---
PT INCONTINENT SMALL AMOUNT STOOL. PERINEAL PAD CHANGED X2 ASSIST. BUTTOCK EXCORIATED. WILL CTM.
--- NOTE | 2016-11-25 20:17 | NUR ---
SUCTION PERFORMED ON PT PER ASSESSMENT. PT DISPLAYED GURGLING IN BACK OF THROAT.
--- NOTE | 2016-11-25 22:10 | NUR ---
PT ASLEEP. PAIN HAS REDUCED SINCE TYLENOL WAS GIVEN. PT HAS NOT YELLED OUT SINCE 45 MINUTES AFTER MED WAS GIVEN.
--- NOTE | 2016-11-25 23:15 | NUR ---
SENIOR SYSTEMS ENGINEER REPORTED AXILLARY TEMP OF 99.3. REMOVED EXCESSIVE COVERS AND WILL TURNED AIR ON. WILL RECHECK TEMP IN 1 HR.
[2016-11-26] VITALS: BP 156/55
--- NOTE | 2016-11-26 | NUR ---
RESIDUAL CHECKED, 7MLS RESIDUAL PRESENT. RECHECKED TEMPERATURE TEMP IS CURRENTLY 98.8 ORALLY. WILL CTM.
--- NOTE | 2016-11-26 00:20 | NUR ---
SUCTIONING PERFORMED, PT SOUNDS GARBLED. PT BECAME VERY AGITATED WHEN SUCTIONING PERFORMED, MOUTH CARE PROVIDED POST SUCTIONING. PT LEFT RESTING QUIETLY, WILL CTM.
--- NOTE | 2016-11-26 03:00 | NUR ---
FEEDING TUBE TUBING CHANGED. TIMED AND DATED. RESTARTED AT 40MLS/HR WITH 100ML FLUSH Q6HRS. PT RESTING QUIETLY, WILL CTM.
[2016-11-26 04:00] VITALS: BP 181/77
--- NOTE | 2016-11-26 04:18 | NUR ---
SUCTIONING PERFORMED USING 110 OF SX. PT SOUNDED VERY GARBLED PRIOR TO SUCTIONING. PT COUGHED DURING THE PROCEDURE, BUT WAS UNSUCCESSFUL IN EXPELLING SPUTUM. SUCTIONED LESS THAN 5ML OF CLEAR DRAINAGE FROM UPPER AIRWAY. RESIDUAL CHECK SHOWED OML. WILL CTM.
[2016-11-26 04:46] LABS: BASOPHILS 0.2 % (0-2); EOSINOPHILS 3.8 % (0-7); HEMATOCRIT 29.4 % (42.0-54.0); HEMOGLOBIN 9.5 g/dL (13.5-17.5); IMMATURE GRANULOCYTES 0.7 % (0-5); LYMPHOCYTES 8.7 % (15-50); MCH 30.2 pg (26.0-34.0); MCHC 32.3 g/dL (31.0-37.0); MCV 93.3 fL (80.0-100.0); MEAN PLATELET VOLUME 10.2 fL (7.4-10.4); MONOCYTES 5.6 % (2-11); PLATELET COUNT 251 10x3/uL (130-400); RBC 3.15 10x6/uL (4.20-6.10); WBC 11.2 10x3/uL (4.8-10.8)
[2016-11-26 05:06] LABS: ANION GAP 11.3 mmol/L (8-16); CALCIUM 8.5 mg/dL (8.5-10.1); CARBON DIOXIDE 24.8 mmol/L (21.0-32.0); CREATININE - SERUM 2.6 mg/dL (0.6-1.3); POTASSIUM - SERUM 3.1 mmol/L (3.5-5.1); VANCOMYCIN - RANDOM 15.1 ug/mL (10.0-20.0)
--- NOTE | 2016-11-26 05:35 | NUR ---
PTS POTASSIUM IS DOWN THIS MORNING TO 3.1. NO E PROTOCOL MEDS ORDERED. CONTACTED BOOK TRIMMER ABOUT ISSUE AND SHE WILL FOLLOW UP. WILL CTM.
--- NOTE | 2016-11-26 05:39 | NUR ---
MARIAH TRIMBLECIA AGENT CALLED BACK ABOUT E PROTOCOL. REPORTED THAT THE MD D/C E PROTOCOL AND HAS BEEN ORDERING ONE TIME DOSES NEEDED. WILL PASS ALONG LOW K+ IN REPORT AND CTM.
--- NOTE | 2016-11-26 06:43 | NUR ---
PT INCONTINENT OF URINE AND BOWEL. CHANGED PERINEAL PAD AND PERFORMED AKANKSHA-CARE X2 ASSIST. PT RESTING QUIETLY, WILL GIVE REPORT ON PT CONDITION FOR THE DAY.
--- NOTE | 2016-11-26 07:54 | NUR ---
AM ROUNDING- RECEIVED REPORT FROM TAX INVESTIGATOR NURSE NANETTE. PT IS CURRENTLY SITTING UP IN BED WITH HOB ELEVATED AT 30 DEGREES WITH EYES CLOSED RESTING. ON 02 AT 4L VIA NC. ON MONITOR SHOWING SR, HR 67 WITH BBB. IV SEEN TO RIGHT FOREARM THAT IS CURRENTLY SALINE LOCKED. PEG TUBE SEEN WITH NEPHRO RUNNING AT 40CC. BED ALARM IS ON. BED IS IN LOW POSITION, SIDE RAILS ARE UP X2, AND CALL LIGHT IS IN REACH. WILL CONTINUE TO MONITOR AND CONTINUE WITH PLAN OF CARE.
[2016-11-26 07:56] VITALS: BP 121/82
--- NOTE | 2016-11-26 10:33 | NUR ---
2883- ALESSANDRO MONTALVO NP INFORMED ME THAT PTS BREATHING SOUNDED ABNORMAL AND WANTED ME TO PAGE RESP. I PAGED RESP. WENT TO CHECK ON PT. PTS O2 SAT IS 94% ON 4L VIA NC. SUCTIONED PTS MOUTH ORDERED. RESP ON UNIT TO CHECK ON PT. VANESSA WITH RESP STATES SHE HAD PT COUGH AND HE IS DOING FINE. WILL CONTINUE TO MONITOR.
[2016-11-26 11:41] VITALS: BP 161/66
--- NOTE | 2016-11-26 12:30 | NUR ---
PT SUCTIONED, ORAL CARE PROVIDED. PT YELLED DURING PROCEDURE. RR EVEN AND UNLABORED, WILL CTM.
--- NOTE | 2016-11-26 16:20 | NUR ---
DOING FS BLOOD SUGAR ORDERED, PT'S BS WAS 34. ADMINISTERED 25ML OF 50% DEXTROSE PER HYPOGLYCEMIC PROTOCOL. WILL CHECK AGAIN IN APPROX 15 MIN. WILL CONTINUE TO MONITOR.
--- NOTE | 2016-11-26 16:31 | NUR ---
RECHECKED PTS BLOOD SUGAR, PTS BLOOD SUGAR IS NOW 73. WILL CONTINUE TO MONITOR AND WILL RE-CHECK PTS BLOOD SUGAR.
--- NOTE | 2016-11-26 16:47 | NUR ---
PRIMO RAMIREZ RECHECKED PTS BLOOD SUGAR. PTS BLOOD SUGAR IS 49. PRIMO RAMIREZ IS GIVING PT SECOND DOSE OF 25ML OF DEXTROSE PER HYPOGLYCEMIC PROTOCOL. WILL RECHECK PTS BLOOD SUGAR AND CONTINUE TO MONITOR.
--- NOTE | 2016-11-26 16:50 | NUR ---
WALT BLACK NP ON UNIT. INFORMED HER OF PTS BLOOD SUGARS AND NURSING INTERVETNIONS DONE. WALT BLACK NP STATES RENAL IS MANAGING PTS IV FLUIDS. ACACIA MONTALVO NP. WILL AWAIT CALLBACK AND CONTINUE TO MONITOR.
--- NOTE | 2016-11-26 17:05 | NUR ---
RECEIVED CALLBACK FROM ALESSANDRO MONTALVO NP. INFORMED HER OF PTS BLOOD SUGARS AND NURSING INTERVENTIONS. NEW ORDERS RECEIVED TO PLACE PT ON IV FLUIDS D5W RUNNING AT 20CC. WILL CONTINUE TO MONITOR.
--- NOTE | 2016-11-26 17:46 | NUR ---
CHECKED PTS BLOOD SUGAR. PTS BLOOD SUGAR IS 58. GAVE PT 1MG OF GLUCGAGON PER HYPOGLYCEMIC PROTOCOL. WILL RECHECK PTS BLOOD SUGAR AND CONTINUE TO MONITOR. IS AT BEDSIDE. CALL LIGHT IS IN REACH.
--- NOTE | 2016-11-26 18:01 | NUR ---
CHECKED PTS BLOOD SUGAR. BLOOD SUGAR IS 66. WILL RECHECK BLOOD SUGAR AND CONTINUE TO MONITOR. PT IS CURRENTLY LAYING IN BED WITH EYES CLOSED RESTING. EQUAL CHEST RISE AND FALL SEEN. IS AT BEDSIDE. BED ALARM IS ON. BED IS IN LOW POSITION, SIDE RAILS ARE UP X2, CALL LIGHT IS IN REACH, AND NON-SKID SOCKS ARE ON. WILL CONTINUE TO MONITOR.
--- NOTE | 2016-11-26 18:30 | NUR ---
PRIMO BARRIOS CHECKED PTS BLOOD SUGAR, PTS BLOOD SUGAR IS 74.
[2016-11-26 19:08] LABS: AEROBE ID Final report (())
--- NOTE | 2016-11-26 19:15 | NUR ---
REPORT RECIVED. FAMILY AT BEDSIDE. INTRODUCED SELF AND PLACED NAME ON WHITE BOARD. RR EVEN AND UNLABORED. NO SIGNS OF DISTRESS. WILL CTM.
--- NOTE | 2016-11-26 20:05 | NUR ---
RECHECKED BS DUE TO HYPOGLYCEMIA TODAY. BLOOD SUGAR IS CURRENTLY 85. WILL CTM.
[2016-11-26 20:39] VITALS: BP 127/62
--- NOTE | 2016-11-26 21:47 | NUR ---
CHECKED BLOOD SUGAR, REMAINS 79. WILL CTM.
--- NOTE | 2016-11-26 23:45 | NUR ---
PT RESTING QUIETLY, INCONTINENT OF URINE AND SMALL BM. PERINEAL CARE PERFORMED AND AKANKSHA PAD CHANGED. ORAL CARE PROVIDED. FSBS CHECKED AND RESULTED AT 94. RESIDUAL CHECKED AND SHOWED 4 MLS OF RESIDUAL. PT MORE ALERT NOW. TRYING TO SPEAK AND STILL HAS GARBLED SPEECH. 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 PT WAS ABLE TO FOLLOW COMMAND TO CHECK ANIMATION PRODUCER STRENGTH. PT LEFT RESTING QUIETLY, BED IN LOWEST POSTION, CALL BOURGEOIS IN REACH, WILL CTM.
[2016-11-27] VITALS: BP 141/65
--- NOTE | 2016-11-27 00:42 | NUR ---
PT INCONTINENT LARGE AMT URINE, PERINEAL CARE PROVIDED X2 ASSIST. WHEN ASKED IF HE WAS IN PAIN HE SAID "I AM IN PAIN." SPEECH IS VERY GARBLED. GAVE TYLENOL SUPPOSITORY. WILL CTM.
--- NOTE | 2016-11-27 02:45 | NUR ---
PT HAS BEEN AGITATED FOR THE PAST 1 HR. ATTEMPTED TO REPOSITION PT TO HELP HIM RELAX WITHOUT SUCCESS. ATIVAN GIVEN TO RELIEVE PT AGITATION. WILL CTM.
[2016-11-27 04:00] VITALS: BP 120/63
--- NOTE | 2016-11-27 04:30 | NUR ---
FEEDING TUBE TUBING CHANGED. 480 MLS OF NEPRO ADDED TO BAG AND CONT AT 40MLS/HR. PT RESTING QUIETLY, RR EVEN AND UNLABORED.
[2016-11-27 06:38] LABS: BASOPHILS 0.1 % (0-2); EOSINOPHILS 2.6 % (0-7); HEMATOCRIT 29.5 % (42.0-54.0); HEMOGLOBIN 9.6 g/dL (13.5-17.5); IMMATURE GRANULOCYTES 0.5 % (0-5); LYMPHOCYTES 6.5 % (15-50); MCH 30.2 pg (26.0-34.0); MCHC 32.5 g/dL (31.0-37.0); MCV 92.8 fL (80.0-100.0); MEAN PLATELET VOLUME 9.9 fL (7.4-10.4); MONOCYTES 6.3 % (2-11); PLATELET COUNT 256 10x3/uL (130-400); RBC 3.18 10x6/uL (4.20-6.10); RDW 14.1 % (11.5-14.5); WBC 12.3 10x3/uL (4.8-10.8)
--- NOTE | 2016-11-27 07:52 | NUR ---
AM ROUNDS - PT IN BED WITH AT BEDSIDE. MONITOR SHOWING SR, HR 75. SCD. IV TO RIGHT HAND, D5W AT 20CC/HR. 4L O2 VIA NC. INCONT URINE AND BM. PEG TUBE WITH NEPRO @ 40CC/HR WITH 100CC WATER FLUSH Q6HRS. BED AT LOWEST POSITION. CALL BOURGEOIS IN REACH. SIDE RAILS UP X2. WILL CONTINUE TO MONITOR
[2016-11-27 09:46] VITALS: BP 166/82
[2016-11-27 12:26] VITALS: BP 141/59
[2016-11-27 16:06] VITALS: BP 145/64
--- NOTE | 2016-11-27 16:45 | NUR ---
PT IN BED. VISITORS AT BEDSIDE. WENT HOME. NO NEEDS AT THIS TIME. WILL CONTINUE TO MONITOR
--- NOTE | 2016-11-27 19:39 | NUR ---
PT RESTING IN BED. FAMILY AT BEDSIDE. HOB 30. KANGAROO PUMP SET AT 40ML/HR. D5W INFUSING AT 20 TO RIGHT FOREARM IV. O2 ON AT 3.5L NC. PT SPEECH IS GARBLED. DENIES ANY NEEDS AT THIS TIME. NO S/S OF DISTRESS. BED LOW AND CALL LIGHT WITHIN REACH WILL CPOC
[2016-11-27 20:56] VITALS: BP 161/64
[2016-11-28 00:20] VITALS: BP 111/78
--- NOTE | 2016-11-28 01:26 | NUR ---
PT LAYING IN BED MOANING LOUDLY/YELLING. GARBLED NOISES. PT WONT ANSWER QUESTIONS ASKED LIKE " ARE YOU IN PAIN" "IS THERE ANYTHING I CAN DO TO MAKE YOU FEEL BETTER SO YOU ARE NOT YELLING" TOLD PT THAT OTHER PT ARE HERE TRYING TO SLEEP. HE CONTINUES TO YELL. BED LOW AND CALL LIGHT WITHIN REACH. WILL CPOC
--- NOTE | 2016-11-28 04:33 | NUR ---
TURNED PT TO RIGHT SIDE. PT STOPPED YELLING WHEN HEAD WAS DOWN SO I LEFT HIM DOWN WHILE I HAVE HIM UNHOOKED FROM FEEDINGS CHANGING HIS TUBING. PT NOW QUITE. WILL LET REST FOR AN HOUR AND HOOK PT BACK TO FEEDING PUMP. PT SHOWS NO S/S OF DISTRESS. BED LOW AND CALL LIGHT WITHIN REACH. WILL CPOC
--- NOTE | 2016-11-28 06:04 | NUR ---
PT ASLEEP. RESPIRATIONS EVEN AND UNLABORED. NO S/S OF DISTRESS. BED LOW AND CALL LIGHT WITHIN REACH WILL CPOC
--- NOTE | 2016-11-28 06:05 | NUR ---
PT ASLEEP RESPIRATIONS EVEN AND UNLABORED. BED LOW AND CALL LIGHT WITHIN REACH. NO S/S OF DISTRESS. WILL CPOC
[2016-11-28 06:13] VITALS: BP 167/80
[2016-11-28 06:14] LABS: BASOPHILS 0.2 % (0-2); EOSINOPHILS 3.2 % (0-7); HEMATOCRIT 29.8 % (42.0-54.0); HEMOGLOBIN 9.6 g/dL (13.5-17.5); IMMATURE GRANULOCYTES 0.3 % (0-5); LYMPHOCYTES 8.9 % (15-50); MCH 29.7 pg (26.0-34.0); MCHC 32.2 g/dL (31.0-37.0); MCV 92.3 fL (80.0-100.0); MEAN PLATELET VOLUME 9.3 fL (7.4-10.4); MONOCYTES 7.4 % (2-11); PLATELET COUNT 233 10x3/uL (130-400); RBC 3.23 10x6/uL (4.20-6.10); RDW 14.1 % (11.5-14.5); WBC 9.5 10x3/uL (4.8-10.8)
[2016-11-28 06:27] LABS: ANION GAP 14.2 mmol/L (8-16); CALCIUM 8.2 mg/dL (8.5-10.1); CARBON DIOXIDE 23.9 mmol/L (21.0-32.0); CREATININE - SERUM 2.4 mg/dL (0.6-1.3); POTASSIUM - SERUM 3.1 mmol/L (3.5-5.1)
[2016-11-28 08:14] VITALS: BP 160/70
[2016-11-28 12:12] VITALS: BP 153/68
[2016-11-28] MEDS ORDERED: NORVASC2.5 MG PO (14:20)
[2016-11-28] MEDS ORDERED: LOPRESSOR25 MG PO (14:21)
[2016-11-28] MEDS ORDERED: PEPCID20 MG PEG (14:22)
[2016-11-28] MEDS ORDERED: HUMALOG 30100 UNITS/ SC (14:22)
[2016-11-28] MEDS ORDERED: PULMICORT0.5 MG/21 UPD (14:22)
[2016-11-28] MEDS ORDERED: HUMULIN N100 U/ML SC (14:23)
[2016-11-28] MEDS ORDERED: NEPHRO-VITE RX1 TAB PO (14:23)
[2016-11-28] MEDS ORDERED: BROVANA15 MCG/2 M INH (14:24)
[2016-11-28] MEDS ORDERED: TYLENOL650 MG RC (14:25)
[2016-11-28] MEDS ORDERED: FLORAJEN3 CAPS460 MG PO (14:25)
[2016-11-28] MEDS ORDERED: MIRALAX17 GM PO (14:25)
[2016-11-28] MEDS ORDERED: HYDRALAZINE HCL50 MG PO (14:25)
--- NOTE | 2016-11-28 16:28 | NUR ---
Patient Name: ELSA IRVING Encounter No: [id number] : 1930 Primary Insurance: MEDICARE A & B Anticipated DC Date: 11-28-2016 Planned Disposition: Long-Term Facility External Planned Provider: [facility], MEDICARE REHAB BED DCP follow-up note: CM RECEIVED DISCHARGE ORDER, CALLED AND SPOKE TO MAAME OF [facility] WHO REPORTED THAT [facility] CANNOT ACCEPT TODAY BUT CAN ACCEPT PT TOMORROW MORNING, 11-29-16. CM NOTIFIED PT AND SPOUSE IN ROOM, SPOUSE MOANING, SPOUSE REPORTED UNDERSTANDING AND AGREEMENT WITH DISCHARGE PLAN FOR THE MORNING TO [facility]. IMPORTANT MESSAGE FROM MEDICARE PROVIDED AND EXPLAINED. CM FAXED DISCHARGE MEDICATION LIST AND ORDER TO [facility] AT [phone]. FOR DISCHARGE, NURSE REPORT TO BE CALLED TO [facility] AT [phone], FAX DISCHARGE INSTRUCTIONS TO [facility] AT [phone]; PT TO TRANSPORT VIA AMBULANCE. Romain Noel, CASE MANAGEMENT
[2016-11-28 16:54] VITALS: BP 159/71
--- NOTE | 2016-11-28 17:41 | NUR ---
CONFUSED. UNABLE TO FOLLOW COMMAND. YELLS OUT UNCOMPREHENSABLE SOUNDS. AT BEDSIDE. PLAN TO DC [facility]ORROW [facility]. PEG FEEDINGS INFUSING ORDERED. CONTINUE PLAN OF CARE. BED LOCKED AND LOW. CALL LIGHT IN REACH. TWO SIDERAILS UP. SCDs ON. BED ALARM ON.
[2016-11-28 19:30] VITALS: BP 171/76
--- NOTE | 2016-11-28 19:35 | NUR ---
PT RESTINGIN BED. PT INCONT. PADS CHANGED AND PT REPOSITONED TO RIGHT SIDE. ORAL CARE DONE. IV TO RIGHT FOREARM AT 20 D5W. NEPRO INFUSING THROUGH KANGAROO PUMP 40CC/HR. SCDS ARE ON. O2 ON AT 3.5L VIA NC. LEFT HEEL ELEVATED AND LEFT ARM ELEVATED. FAMILY AT BED SIDE. PT STILL MOANING AND YELLING BUT NOT AT LOUD. BED LOW AND CALL LIGHT WITHIN REACH WILL CPOC
--- NOTE | 2016-11-28 22:27 | NUR ---
PT CHANGED AND REPOSITIONED. PADS CHANGED FROM INCONT VOID. PT FEEL ASLEEP AND STOPPED YELLING WHEN I LAID HIS HEAD DOWN. TURNED TUBEFEEDINGS OFF FOR AN HOUR OR 2 SO PT CAN SLEEP. FLUSHED PEG TUBE. GAVE COUGH SYRUP FOR PT WEAK NON PRODUCTIVE COUGH. PT SNORING ASLEEP RESPIRATIONS EVEN AND UNLABORED. NO S/S OF DISTRESS. BED LOW AND CALL LIGHT WITHIN REACH. WILL CONTINUE POC
[2016-11-29 01:36] VITALS: BP 164/71
--- NOTE | 2016-11-29 01:49 | NUR ---
PT ASLEEP. RESPIRATIONS EVEN AND UNLABORED. NO S/S OF DISTRESS. O2 3.5L NC. LEGS ELEVATED. FEEDING STILL ON HOLD. PT HAS BEEN ASLEEP EXCEPT FOR APPROX 15 MINS WHEN HE WAS WET FROM INCONT VOID. CHANGED AND REPOSITONED PT. FELL BACK ASLEEP. NO YELLING OR MOANING FROM ROOM. BED LOW AND CALL LIGHT WITHIN REACH. WILL CPOC
--- NOTE | 2016-11-29 03:07 | NUR ---
PT WOKE EARLIER AND WAS YELLING OUT AND TRYING TO COUGH. RESP. GAVE HIM A BREATHING TREATMENT AND SUCTION. PT NOW ASLEEP RESPIRATIONS EVEN AND UNLABORED. BED LOW AND CALL LIGHT WITHIN REACH. WILL CPOC
[2016-11-29 05:29] VITALS: BP 146/62
--- NOTE | 2016-11-29 05:49 | NUR ---
PT ASLEEP. RESPIRATIONS IRREGULAR, UNLABORED. PT SNORING. NO S/S OF DISTESS. BED LOW AND CALL LIGHT WITHIN REACH WILL CPOC
[2016-11-29 06:05] LABS: BASOPHILS 0.2 % (0-2); HEMOGLOBIN 10.1 g/dL (13.5-17.5); IMMATURE GRANULOCYTES 0.3 % (0-5); LYMPHOCYTES 4.5 % (15-50); MCH 29.6 pg (26.0-34.0); MCHC 31.6 g/dL (31.0-37.0); MCV 93.8 fL (80.0-100.0); MEAN PLATELET VOLUME 10.2 fL (7.4-10.4); MONOCYTES 6.7 % (2-11); NEUTROPHILS 86.3 % (40-80); PLATELET COUNT 276 10x3/uL (130-400); RBC 3.41 10x6/uL (4.20-6.10); RDW 14.3 % (11.5-14.5); WBC 11.3 10x3/uL (4.8-10.8)
[2016-11-29 06:31] LABS: ANION GAP 15.5 mmol/L (8-16); CARBON DIOXIDE 23.4 mmol/L (21.0-32.0); CREATININE - SERUM 2.3 mg/dL (0.6-1.3); PHOSPHOROUS 4.6 mg/dL (2.5-4.9)
[2016-11-29 06:43] LABS: POTASSIUM - SERUM 2.9 mmol/L (3.5-5.1)
--- NOTE | 2016-11-29 06:52 | NUR ---
LAB CALLED IN A CRITICAL POTASSIUM AT 0645 FOR A LAB DRAWN AT 0435. CHECKED PT BLOOD SUGAR AT 0650 AND IT IS 61, WILL GIVE THE INSTA GLUCOSE. PT HAS NO S/S OF DISTRESS. BED LOW AND CALL LIGHT WITHIN REACH WILL CPOC
[2016-11-29 08:21] VITALS: BP 158/73
--- NOTE | 2016-11-29 08:42 | NUR ---
Patient Name: ELSA IRVING Encounter No: [id number] : 1930 Primary Insurance: MEDICARE A & B Anticipated DC Date: 11-29-2016 Planned Disposition: Snf Facility External Planned Provider: [facility], MEDICARE REHAB BED DCP follow-up note: CM CALLED [facility], , SPOKE TO MAAME WHO REPORTS [facility] WILL ACCEPT PT FOR REHAB THIS MORNING. CM FAXED DISCHARGE INSTRUCTIONS TO [facility] AT [phone]. CM SPOKE TO PT'S SPOUSE IN ROOM WHO IS STILL IN AGREEMENT WITH DISCHARGE TODAY TO REHAB AT [facility]. FOR DISCHARGE, NURSE REPORT TO BE CALLED TO [facility] 4 FLOYD NURSE AT [phone]; PT TO TRANSPORT VIA AMBULANCE. Romain Noel, CASE MANAGEMENT
--- NOTE | 2016-11-29 12:28 | NUR ---
[facility] HERE FOR TRANSFER. DR. JONESES HERE AND ASKED HER ABOUT PT HAVING A SCRIPT FOR ATIVAN. DR. COOMBS STATED NO. PT TRANSFERRED TO [facility] STRETCHER. [facility] SENT [facility] TO TAKE FOR PENITENTIARY. TO PENITENTIARY VIA [facility].
--- NOTE | 2016-11-29 13:19 | NUR ---
CONFUSED. DISCHARGE PAPERS SIGNED BY . PEG TUBE STOPPED FOR TRANSPORT AND FLUSHED WITH 100mL WATER. DC RT FOREARM IV TIP INTACT. REPORT CALLED TO CODEY HERRING AT [facility]. [facility] CALLED FOR TRANSPORT. [facility] SENT TO [facility].
--- NOTE | 2016-11-30 10:26 | DS ---
PATIENT:ELSA IRVING :[birth year] MEDICAL RECORD: [id number] DISCHARGE SUMMARY ADMISSION DATE: 11/08/16 DISCHARGE DATE: 11/29/16 ADMISSION DATE: 11/08/2016 DISCHARGED DATE: 11/28/2016 ADMITTING DIAGNOSES: Pneumonia with acute kidney injury, elevated BNP, elevated D-dimer, chronic obstructive pulmonary disease exacerbation, type 2 diabetes mellitus with hyperglycemia. HOSPITAL COURSE: This is an 85-year-old gentleman of Dr. Smith with multiple ongoing medical problems, admitted with diagnoses as outlined above. Details are well-outlined in the history of the present illness, H&P. Please refer to that. All events, lab procedures, diagnostic testing are well documented in the records. He has a rather lengthy stay. Noted known history of tobacco and alcohol use. CONSULTANTS: Dr. De La Garza, nephrology, who is his histology aide, Dr. Ortiz, pulmonary and we had speech therapy following as well. Other consultants included Dr. Schafer with neurology. He was treated for sepsis, pneumonia, yeast bacteremia. Nutrition was by PEG tube placed by Dr. Naqvi. He completed his antibiotics. His labs and volume diabetic meds all basically managed by Dr. De La Garza. He is stable [facility] today. He does arouse and respond some. His PEG is functioning. Dr. De La Garza adjusted medications and free water. Creatinine was down to 2.3 with a Lara out per Dr. Schafer. He has multifactorial metabolic encephalopathy that continues and no evidence of focality. Contributing factors include pneumonia, sepsis, iscgt-hy-jigupmy kidney injury. He was tapered off steroids per pulmonology. Continued on nebulized treatments, EzPAP, flutter valve. He was transferred back to [facility] today. DIAGNOSES: Acute hypoxic respiratory failure, improving, left lower lobe community-acquired pneumonia, acute exacerbation of chronic obstructive pulmonary disease, xlzdx-ma-ztemnss kidney disease, multifactorial encephalopathy, leukocytosis improved, hypertension, history of alcoholism, history of coronary artery disease, history of coronary artery bypass graft, neuropathy, benign prostatic hypertrophy by history, debility, critical illness myopathy, nutrition via PEG. He will have a BMP drawn on and send to Dr. De La Garza's office. Greater than 30 minutes was spent on this discharge. TRANSINT:[id number] Voice Confirmation ID: [id number] DOCUMENT ID: [id number] Dictated By: WALT BLACK RN I have interviewed/examined the above patient and agree with these documented findings. DISCHARGE SUMMARY REPORT [id number] ELSA IRVING, FADIA NAVA at 1026 at 1613 CC: [id number] DICTATION DATE: 11/29/16 1240 ENVIRONMENTAL MAINTENANCE WORKER: 11/29/16 2301 DIS IN 11/29/16 [address] [place] [address]
== END 2016-11-29 13:31 | DRG 871 ==
LOC: D.ER 01:33 → D.ICU 03:28 → D.M2 03:28 → D.MS 03:28 → D.ICU 12:26 → D.M2 11-16 22:13
PROVIDERS: Emergency Medicine; Family Medicine; Internal Medicine Nephrology; Surgery; ADMIT Family Medicine
PROC: 0DH63UZ Insertion of Feeding Device into Stomach, Percutaneous Approach (ICD-10-PCS; principal; 2016-11-14 13:00)
DX: A41.9 Sepsis, unspecified organism (principal); J96.01 Acute respiratory failure with hypoxia; J18.1 Lobar pneumonia, unspecified organism; G93.41 Metabolic encephalopathy; G93.49 Other encephalopathy; N17.0 Acute kidney failure with tubular necrosis; J44.0 Chronic obstructive pulmonary disease with (acute) lower respiratory infection; J44.1 Chronic obstructive pulmonary disease with (acute) exacerbation; N18.4 Chronic kidney disease, stage 4 (severe); E87.2 Acidosis; N39.0 Urinary tract infection, site not specified; G72.81 Critical illness myopathy; Z66 Do not resuscitate; E11.21 Type 2 diabetes mellitus with diabetic nephropathy; E11.65 Type 2 diabetes mellitus with hyperglycemia; E11.22 Type 2 diabetes mellitus with diabetic chronic kidney disease; I12.9 Hypertensive chronic kidney disease with stage 1 through stage 4 chronic kidney disease, or unspecified chronic kidney disease; F10.20 Alcohol dependence, uncomplicated; G47.33 Obstructive sleep apnea (adult) (pediatric); F41.8 Other specified anxiety disorders; R13.10 Dysphagia, unspecified; B37.9 Candidiasis, unspecified; I34.0 Nonrheumatic mitral (valve) insufficiency

== ENCOUNTER 2016-12-08 10:51 | Inpatient (IN) | payer MEDICARE, BC ==
[~2016-12-08] VITALS: Ht 177.8 cm; Wt 90.6 kg
--- NOTE | ~2016-12-08 | CN ---
PATIENT NAME:ELSA IRVING MEDICAL RECORD: [id number] : 34 LOCATION:[id number] ADMIT DATE: 12/08/16 ACCOUNT: [id number] CONSULTING PHYSICIAN: SANDRITA MEEHAN MD REFERRING PHYSICIAN: JOHAN LAMBERT MD DATE OF CONSULTATION: 12/09/2016 CONSULT REQUESTING PHYSICIAN: Johan Lambert MD REASON FOR CONSULTATION: Vent management, pneumonia. HISTORY OF PRESENT ILLNESS: Mr. Irving is an 86-year-old gentleman, very well known to me from his previous hospitalization. The patient was admitted yesterday from the [facility] with pneumonia and fever up to 102. The patient last night coded and the patient is now intubated. History was taken mainly by reviewing the patient's note and talking to the nursing staff. REVIEW OF SYSTEMS: The detail is not obtainable. PAST MEDICAL HISTORY: 1. COPD. 2. Chronic kidney disease. 3. Hypertension. 4. Coronary artery disease, status post angioplasty. 5. Peripheral vascular disease. 6. Obstructive sleep apnea. 7. Anemia. 8. Chronic mental status changes secondary to global encephalopathy. 9. History of alcoholism. 10. Anxiety and depression. PAST SURGICAL HISTORY: 1. Herniorrhaphy. 2. Prostatectomy. 3. He has cardiac catheterization and stent placement. ALLERGIES: There are no known drug allergies. MEDICATIONS: He is on Zosyn IV, vancomycin IV. His all other medication is reviewed. PERSONAL AND SOCIAL HISTORY: The patient is . He lives with his . Now, he is a detention resident. He is an ex-smoker. He was a drinker. FAMILY HISTORY: Not known. PHYSICAL EXAMINATION: GENERAL: Now, the patient is orally intubated and sedated. VITAL SIGNS: The blood pressure is 75-116/64, pulse is 100, respiration is 20, temperature 98.4 and SpO2 99%. He is on assist control mechanical ventilation from 50%. HEENT: Conjunctivae pink, sclerae nonicteric. NECK: Supple, no JVD. CHEST: The chest excursion is minimal on the right side. There is crackle at the right base. No wheezing. CONSULT REPORT [id number] ELSA IRVING HEART: Rhythm regular, normal sound, no murmur. ABDOMEN: Soft, bowel sounds present. No hepatosplenomegaly. RECTAL: Deferred. EXTREMITIES: No cyanosis, no clubbing. There is no pedal edema. SKIN: Warm, normal turgor. CENTRAL NERVOUS SYSTEM: The patient is orally intubated and sedated. LABORATORY DATA: CBC: The WBC is 9.6, hemoglobin 11.8, hematocrit 39.2 and platelet count is 369. Chemistry: Sodium 145, potassium 4.8, BUN is 17, creatinine is 3.6, BUN is 80, creatinine is 3.6. ABGs: The pH is 7.41, pCO2 is 31.9, pO2 is 526. Lactic acid 1.69. CHEST RADIOGRAPH: The ET tube is in good position. There is infiltrate in the right lower lobe. IMPRESSION: 1. Status post cardiopulmonary arrest. 2. Acute respiratory failure secondary to cardiopulmonary arrest. 3. Right lower lobe pneumonia, possible chronic aspiration. 4. Miwzp-xe-pcnbzpc renal failure. 5. Chronic obstructive pulmonary disease with acute exacerbation. 6. Hypotension, most likely secondary to septic shock. 7. History of alcoholism. 8. Mental status changes secondary to global encephalopathy. RECOMMENDATION: 1. We will continue the mechanical ventilation, adjust the setting. 2. Continue Zosyn and vancomycin. 3. Albuterol ipratropium nebulizer. 4. Continue Levophed to keep the systolic blood pressure above 90. 5. IV fluid resuscitation per nephrology. 6. GI stress ulcer prevention and DVT prophylaxis. 7. Follow up labs and chest radiograph in the morning. 8. I have a detailed discussion with the patient's . The patient is DNR and they are going to decide about terminally extubating the patient. I will be discussing with the family and friends. Dr. Lambert, thank you for involving me in the care of Ms. Irving. The critical care time is 45 minutes. TRANSINT:[id number] Voice Confirmation ID: [id number] DOCUMENT ID: [id number] SANDRITA MEEHAN MD CC: RENETTA ANGELO MD and JOHAN LAMBERT MD [id number] DICTATION DATE: 12/09/161104 PSYCHIATRIC NURSE: 12/09/16 182 ADM IN [facility] [address] [place] [address]
[~2016-12-08 10:51] MED LIST changes: +BROVANA15 MCG/2 M INH; +FLORAJEN3 CAPS460 MG PO; +HUMALOG 30100 UNITS/ SC; +HUMULIN N100 U/ML SC; +LOPRESSOR25 MG PO; +MIRALAX17 GM PO; +NEPHRO-VITE RX1 TAB PO; +NORVASC2.5 MG PO; +PEPCID20 MG PEG; +PULMICORT0.5 MG/21 UPD; +TYLENOL650 MG RC
[2016-12-08 12:05] LABS: BASOPHILS 0.2 % (0-2); HEMATOCRIT 37.7 % (42.0-54.0); HEMOGLOBIN 11.8 g/dL (13.5-17.5); IMMATURE GRANULOCYTES 0.2 % (0-5); MCH 29.5 pg (26.0-34.0); MCHC 31.3 g/dL (31.0-37.0); MCV 94.3 fL (80.0-100.0); MEAN PLATELET VOLUME 10.6 fL (7.4-10.4); MONOCYTES 10.8 % (2-11); NEUTROPHILS 74.8 % (40-80); PLATELET COUNT 299 10x3/uL (130-400); RDW 15.2 % (11.5-14.5); WBC 8.7 10x3/uL (4.8-10.8)
[2016-12-08 12:21] LABS: ALBUMIN 2.1 g/dL (3.4-5.0); BILIRUBIN - TOTAL 0.54 mg/dL (0.2-1.3); CALCIUM 8.8 mg/dL (8.5-10.1); CARBON DIOXIDE 27.2 mmol/L (21.0-32.0); CREATININE - SERUM 3.2 mg/dL (0.6-1.3); PROTEIN - SERUM 7.3 g/dL (6.4-8.2)
[2016-12-08 12:22] LABS: ANION GAP 13.1 mmol/L (8-16); POTASSIUM - SERUM 4.3 mmol/L (3.5-5.1)
[2016-12-08 12:25] LABS: APPEARANCE HAZY (CLEAR); COLOR YELLOW (YELLOW); LEUKOCYTE ESTERASE TRACE (NEGATIVE); PROTEIN 3+ mg/dL (NEGATIVE); SPECIFIC GRAVITY 1.015 (1.005-1.020)
[2016-12-08 12:26] LABS: BILIRUBIN NEGATIVE (NEGATIVE); KETONE NEGATIVE (NEGATIVE); UROBILINOGEN NORMAL (NORMAL)
[2016-12-08 12:27] LABS: BACTERIA FEW /hpf (NONE SEEN); GLUCOSE 100 mg/dL (NEGATIVE)
[2016-12-08 12:28] LABS: MUCUS <1+ /lpf (NONE SEEN)
[2016-12-08 12:29] LABS: AMORPHOUS SEDIMENT <1+ /lpf (NONE SEEN); EPITHELIAL CELLS OCC /hpf (0-5); GRANULAR CAST RARE /lpf (NONE SEEN); RED CELLS - URINE 0-5 /hpf (0-5); WHITE CELLS - URINE 0-5 /hpf (0-5); YEAST <1+ /hpf (NONE SEEN)
[2016-12-08 17:53] VITALS: BP 148/68; BMI 28.7
[2016-12-08] MEDS ORDERED: HUMALOG 30100 UNITS/ SC (18:12)
[2016-12-08] MEDS ORDERED: LEVAQUIN750 MG PEG (18:14)
[2016-12-08] MEDS ORDERED: MELATONIN5 MG PO (18:15)
[2016-12-08] MEDS ORDERED: NEPHRO-VITE RX1 TAB PO (18:16)
[2016-12-08] MEDS ORDERED: NOVOLIN N100 U/ML SQ (18:18)
[2016-12-08] MEDS ORDERED: PEPCID20 MG PO (18:18)
[2016-12-08] MEDS ORDERED: TYLENOL650 MG RC (18:41)
[2016-12-08] MEDS ORDERED: ACIDOPHILUS LAC1 CAP PO (18:42)
[2016-12-08] MEDS ORDERED: BROVANA15 MCG/2 M INH (18:45)
[2016-12-08] MEDS ORDERED: KLONOPIN0.5 MG PO (18:47)
[2016-12-08 19:00] VITALS: BP 145/88
--- NOTE | 2016-12-08 19:30 | NUR ---
AWAKE NON-VERBAL. AT BEDSIDE. ON 02 AT 2L/NC. AUDIBLE WHEEZES NOTED. HAS NON-PRODUCTIVE COUGH. HOLLERS OCCASIONALLY. PEG TUBE WITH TUBE FEEDING OF NEPRO ORDERED. COTTON INTACT/PATENT. HIS STATED SHE IS STAYING THE NIGHT.
--- NOTE | 2016-12-08 21:25 | NUR ---
CALLED AND RECEIVED ORDERS FOR KUB FROM WALT BLACK APN. REPORTED PATIENT'S CONTINUES TO EDUARDO, RUBBING HIS ABD ON RT SIDE. ADMIN HIS SCHED MEDS CRUSHED THROUGH PEG TUBE, FLUSHED BEFORE AND AFTER WITH 30CC TAP WATER.
--- NOTE | 2016-12-08 23:00 | NUR ---
JOHN'S PRESENT IN ROOM GIVING A BATH. HIS HOLLERING HAS LESSEN SOME.
[2016-12-09] VITALS (52 sets, daily range): BP systolic 57–155; BP diastolic 50–82; Ht 177.8 cm; Wt 90.6 kg
[2016-12-09 05:28] LABS: BASOPHILS 0.2 % (0-2); EOSINOPHILS 0 % (0-7); HEMATOCRIT 39.2 % (42.0-54.0); HEMOGLOBIN 11.8 g/dL (13.5-17.5); IMMATURE GRANULOCYTES 0.3 % (0-5); LYMPHOCYTES 3.8 % (15-50); MCH 29.1 pg (26.0-34.0); MCHC 30.1 g/dL (31.0-37.0); MEAN PLATELET VOLUME 10.5 fL (7.4-10.4); MONOCYTES 2.4 % (2-11); NEUTROPHILS 93.3 % (40-80); RBC 4.06 10x6/uL (4.20-6.10); RDW 15.2 % (11.5-14.5); WBC 9.6 10x3/uL (4.8-10.8)
[2016-12-09 05:32] LABS: MCV 96.6 fL (80.0-100.0); PLATELET COUNT 369 10x3/uL (130-400)
[2016-12-09 05:34] LABS: ANION GAP 17.6 mmol/L (8-16); CARBON DIOXIDE 23.2 mmol/L (21.0-32.0); CREATININE - SERUM 3.6 mg/dL (0.6-1.3); PHOSPHOROUS 7.3 mg/dL (2.5-4.9); POTASSIUM - SERUM 4.8 mmol/L (3.5-5.1); VANCOMYCIN - RANDOM 10.7 ug/mL (10.0-20.0)
--- NOTE | 2016-12-09 05:58 | NUR ---
BRICKLAYER REPORTED O2 SAT'S AT 87%. SUCTIONED OUT SMALL AMT WHITE MUCUS. TURNED 02 UP TO 3L. HE THEN STOPPED BREATHING. CALLED A RAPID RESPONSE AT 0420, AND THEN CODE BLUE. PATIENT RESUSITATED AND WITH HIS 'S CONSENT INTUBATED AND TAKEN TO ICU.
--- NOTE | 2016-12-09 06:15 | NUR ---
PT ARRIVED ON UNIT VIA STRETCHER, HOOKED TO MONITORS, ON VENT, B/P 77/50, RIGHT UPPER ARM PIV INFILTRATED AT THIS TIME, RESITED TO RIGHT SHOULDER, LEVOPEHD INTIATED,
--- NOTE | 2016-12-09 06:16 | NUR ---
AT BEDSIDE, CONSENT SIGNED FOR CENTRAL LINE PLACEMENT SIGNED BY ,
--- NOTE | 2016-12-09 09:00 | NUR ---
AT BEDSIDE. CONDITION UPDATE GIVEN.
--- NOTE | 2016-12-09 11:00 | NUR ---
DR. MEEHAN HERE. NEW ORDERS REC'D.
--- NOTE | 2016-12-09 13:00 | NUR ---
NO ACUTE CHANGES IN CONDITION. WEANING LEVOPHED AT TOLERATED.
--- NOTE | 2016-12-09 14:16 | NUR ---
* Is the patient Alert and Oriented? No 0 * How many steps to enter\exit or inside your home? 1 0 * PCP Dr. Brady 0 * Pharmacy [facility] 1 0 * Preadmission Environment Care Home Facility 0 * Facility Name [facility] 0 * ADLs Partial Dependent 0 * Partial ADLs (Assistance needed) Ambulation Bathing Dressing Medication Management 0 * Equipment CPAP Nebulizer Oxygen Rolling Walker 0 * List name and contact numbers for known caregivers / representatives who currently or will assist patient after discharge: Spouse - Óscar [phone] 0 * Can the patient safely return to the preadmission environment? Yes 0 * Has this patient been hospitalized within the prior 30 days at any hospital? Yes Patient Name: ELSA IRVING Admission Status: ER Accout number: [id number] Admission Date: 12-08-2016 : 1930 Admission Diagnosis:FEVER, UNSPECIFIED Attending: ANDREA NELSON Current LOS: 1 Planned Disposition: Care Home Facility Primary Insurance: MEDICARE A & B Discharge Planning Comments: Patient sedated, on ventilator. Spouse not available at present time. Chart from previous admission reviewed. Patient normally lives with his spouse. He was [facility] discharged from [facility] 11/29 to a fci bed at [facility]. He required assistance with ADL's. At home, he has a walker, O2, nebulizer & CPAP machine. He has had home health services through [facility] in the past. Case Management with follow and assist as needed. Clinical Education Academic Coordinator: Deepali Olivares
--- NOTE | 2016-12-09 19:20 | NUR ---
REPORT RECIEVED, SHIFT ASSESSMENT COMPLETE, PT ON VENT, RESPONDS TO DEEP STIMULI, 8.0 ETT, 24 AT LIP TAPED AND SECURED, ON 40% FIO2 WITH 100% O2 SAT. LUNGS CLEAR IN B/L UPPER LOBES, DIMINISHED IN B/L LOWER LOBES, S1S2, CM-NSR, PATENT RIGHT IJ....SEE IV FLOW SHEET, ABODMEN IS SOFT AND ROUND WITH ACTIVE BS, PATENT PEG TUBE WITH NEPRO INFUSING VIA PUMP, PATENT F/C WITH CONCENTRATED UOP, EDEMA NOTED IN ALL EXTREMETIES, ALL PPP, VSS, WILL CON'T TO MONITOR
--- NOTE | 2016-12-09 21:26 | NUR ---
FAMILY AT BEDSIDE, UPDATE GIVEN
--- NOTE | 2016-12-09 23:18 | NUR ---
REASSESSMENT COMPLETE, NO CHANGES NOTED, PT REPOSITIONED FOR COMFORT, ORAL CARE PROVIDED,
[2016-12-10] VITALS (17 sets, daily range): BP systolic 96–163; BP diastolic 50–88
--- NOTE | 2016-12-10 01:15 | NUR ---
REPOSITIONED FOR COMFORT, ORAL CARE PROVIDED,
--- NOTE | 2016-12-10 03:11 | NUR ---
REASSESSMENT COMPLETE, NO CHANGES NOTED, RAD IN ROOM FOR DAILY CXR, WILL CON'T TO MONITOR
[2016-12-10 05:14] LABS: BASOPHILS 0 % (0-2); EOSINOPHILS 0 % (0-7); HEMATOCRIT 31.8 % (42.0-54.0); HEMOGLOBIN 9.8 g/dL (13.5-17.5); IMMATURE GRANULOCYTES 0.2 % (0-5); LYMPHOCYTES 2.2 % (15-50); MCH 28.7 pg (26.0-34.0); MCHC 30.8 g/dL (31.0-37.0); MEAN PLATELET VOLUME 10.7 fL (7.4-10.4); MONOCYTES 2.7 % (2-11); NEUTROPHILS 94.9 % (40-80); RBC 3.42 10x6/uL (4.20-6.10); RDW 15.7 % (11.5-14.5); WBC 11.8 10x3/uL (4.8-10.8)
[2016-12-10 05:15] LABS: PLATELET COUNT 281 10x3/uL (130-400)
[2016-12-10 05:36] LABS: ANION GAP 20.2 mmol/L (8-16); CALCIUM 7.9 mg/dL (8.5-10.1); CARBON DIOXIDE 19.7 mmol/L (21.0-32.0); VANCOMYCIN - RANDOM 21.5 ug/mL (10.0-20.0)
[2016-12-10 05:37] LABS: CREATININE - SERUM 4.9 mg/dL (0.6-1.3)
[2016-12-10 05:38] LABS: POTASSIUM - SERUM 3.9 mmol/L (3.5-5.1)
--- NOTE | 2016-12-10 07:15 | NUR ---
ASSESSMENT COMPLETE. REPOSITIONED. EYES OPEN AND APPEARS RESTLESS. DOESN'T FOLLOW COMMANDS.
--- NOTE | 2016-12-10 09:00 | NUR ---
ON DIPRIVAN NOW. RESTING BETTER. AT BEDSIDE. CONDITION UPDATE GIVEN. REQUESTING TO TALK TO MILK DRIVER. CONSIDERING TERMINAL EXTUBATION.
--- NOTE | 2016-12-10 11:00 | NUR ---
DIPRIVAN INCREASED TO 10MC/KG/MIN. DR. MEEHAN HERE. FAMILY CONFERENCE. FAMILY CONSIDERING TERMINAL EXTUBATION.
--- NOTE | 2016-12-10 13:30 | NUR ---
DR. CRAIG HERE. CONFERENCE WITH FAMILY. TERMINAL EXTUBATION PLANNED.
--- NOTE | 2016-12-10 13:54 | NUR ---
FAMILY SPOKE WITH DR. CRAIG AT LENGTH ABOUT PATIENT CONDITION AND OUTCOMES, FAMILY HAS DECIDED TO PREFORM TERMINAL EXTUBATION AND CONSULT HOSPICE, DR. MEEHAN NOTIFIED WITH NEW ORDERS RECD.
--- NOTE | 2016-12-10 14:25 | NUR ---
TUBEFEEDING AND FLORES DE JESUS'Mauri WRIST RESTRAINTS REMOVED
--- NOTE | 2016-12-10 14:40 | NUR ---
MORPHINE 10MG GIVEN IV IN PREP FOR EXTUBATION.
--- NOTE | 2016-12-10 15:08 | NUR ---
EXTUBATED AND PLACED ON O2 VIA NC @ 2 LPM
--- NOTE | 2016-12-10 16:09 | NUR ---
AT BEDSIDE. TO BE ADMITTED UNDER HOSPICE CARE.
--- NOTE | 2016-12-10 18:21 | NUR ---
LATE ENTRY 1400 CM RECEIVED REQUEST FOR [facility]ICE REFERRAL FROM PRIMARY NURSE, WILY. DR CRAIG HAD SPOKEN WITH THE FAMILY. [facility] IS THE CONTRACTED PROVIDER FOR THE [facility] AT [facility]. TC TO [facility] AT [phone]. RECEIVED CB FROM SPRING FORMER MACHINE NURSE, RODNEY. REFERRAL GIVEN. SHE STATED SHE WOULD CALL THE ON-CALL FOR [facility]. FACE SHEET, MD ORDER AND CLINICAL PREPARED FOR HOSPICE NURSE. CM SPOKE WITH THE PRIMARY NURSE AND THE FLAG FOOTBALL COACH, SIERRA. PACKET LEFT W/ FLAG FOOTBALL COACH. MARY SPOKE WITH THE IN THE FAMILY ROOM IN ICU. SHE WILL WAIT FOR HOSPICE NURSE TO VISIT TO SIGN PAPERWORK FOR HOSPICE ADMISSION. PROVIDED SEATING FOR SUPPORT PERSONS WITH THE . NO OTHER NEEDS VOICED AT THIS TIME. [facility] ON SITE FROM [place] FOR ADMISSION. PLAN IS FOR TERMINAL EXTUBATION WITH THE [facility].
== END 2016-12-10 16:11 | disposition hospice, inpatient (51) | DRG 871 ==
LOC: D.ER 10:51 → D.M2 16:14 → D.ICU 16:14
PROVIDERS: Emergency Medicine; Internal Medicine Nephrology; ADMIT Family Medicine
PROC: 0T9B70Z Drainage of Bladder with Drainage Device, Via Natural or Artificial Opening (ICD-10-PCS; 2016-12-08)
PROC: 02HV33Z Insertion of Infusion Device into Superior Vena Cava, Percutaneous Approach (ICD-10-PCS; principal; 2016-12-09)
PROC: 5A1945Z Respiratory Ventilation, 24-96 Consecutive Hours (ICD-10-PCS; 2016-12-09)
PROC: 5A12012 Performance of Cardiac Output, Single, Manual (ICD-10-PCS; 2016-12-09)
PROC: 0BH17EZ Insertion of Endotracheal Airway into Trachea, Via Natural or Artificial Opening (ICD-10-PCS; 2016-12-09)
DX: A41.9 Sepsis, unspecified organism (principal); J18.9 Pneumonia, unspecified organism; G93.40 Encephalopathy, unspecified; R65.21 Severe sepsis with septic shock; J96.00 Acute respiratory failure, unspecified whether with hypoxia or hypercapnia; J44.0 Chronic obstructive pulmonary disease with (acute) lower respiratory infection; N18.4 Chronic kidney disease, stage 4 (severe); N17.9 Acute kidney failure, unspecified; J44.1 Chronic obstructive pulmonary disease with (acute) exacerbation; E11.22 Type 2 diabetes mellitus with diabetic chronic kidney disease; E11.65 Type 2 diabetes mellitus with hyperglycemia; I12.9 Hypertensive chronic kidney disease with stage 1 through stage 4 chronic kidney disease, or unspecified chronic kidney disease; D64.9 Anemia, unspecified; F41.8 Other specified anxiety disorders; E11.40 Type 2 diabetes mellitus with diabetic neuropathy, unspecified; F03.90 Unspecified dementia, unspecified severity, without behavioral disturbance, psychotic disturbance, mood disturbance, and anxiety; Z93.1 Gastrostomy status; G47.33 Obstructive sleep apnea (adult) (pediatric); I25.10 Atherosclerotic heart disease of native coronary artery without angina pectoris; I65.23 Occlusion and stenosis of bilateral carotid arteries; E88.09 Other disorders of plasma-protein metabolism, not elsewhere classified; F10.20 Alcohol dependence, uncomplicated; Z66 Do not resuscitate; T17.990A Other foreign object in respiratory tract, part unspecified in causing asphyxiation, initial encounter; Z95.5 Presence of coronary angioplasty implant and graft

== ENCOUNTER 2016-12-10 16:16 | Inpatient (IN) | payer OTHER ==
[~2016-12-10 16:16] MED LIST changes: +ACIDOPHILUS LAC1 CAP PO; +KLONOPIN0.5 MG PO; +LEVAQUIN750 MG PEG; +MELATONIN5 MG PO; +NOVOLIN N100 U/ML SQ; +PEPCID20 MG PO
--- NOTE | 2016-12-10 17:00 | NUR ---
UNDER HOSPICE CARE. FAMILY @ BEDSIDE. PLAN IS TO START FOOD EXPEDITOR DILAUDID AND PROVIDE COMFORT CARE.
[2016-12-10 19:00] VITALS: BP 124/81
[2016-12-10 20:00] VITALS: BP 124/81
--- NOTE | 2016-12-10 21:14 | NUR ---
REPORT CALLED TO PRIMO BEASLEY. PT IS STABLE ON O2 AT 2 LPM NC. RESTING WITH EYES CLOSED NO DISTRESS. DILAUDID INFUSING TO RIGHT IJ FOR COMFORT. SR ON THE MONITOR. NOTIFIED OF TRANSFER. SHE IS AT HOME. WILL RANSFER PT TO ROOM 2127 VIA BED AT THIS TIME.
--- NOTE | 2016-12-10 21:30 | NUR ---
PT RECEIVED VIA BED TO ROOM 2126 FROM ICU ACCOMPANIED BY NURSES X2. RIGHT IJ CVL WITH NS @ KVO AND DILAUDID LACTATION SPECIALIST PROGRAMMED TO RUN DILAUDID 0.5 MG/HR CONT ORDERED PER DR CABALLERO. PT ON O2 2LPM NC, SATS 95%. COTTON CATH WITH SCANT [place] URINE. PT MOANING LOUD AND GRIMMACING AFTER BED TRANSFER. WILL REVIEW ORDERS FURTHER AND MEDICATE ACCORDINGLY.
--- NOTE | 2016-12-10 21:44 | NUR ---
ATIVAN 1 MG AND DILAUDID 1 MG IV GIVEN FOR COMFORT. PT RESTLESS IN BED AND MOANING LOUDLY. AFTER 15 MIN PT RESTING SOUNDLY WITH EVEN SHALLOW RESPIRATIONS. HEART SOUNDS REGULAR. WILL CONT TO MONITOR FREQ TO ANTICIPATE NEEDS AND ASSESS COMFORT LEVEL. CALL LIGHT WITHIN REACH. PT IN ROOM IN DIRECT VIEW OF NURSES' STATION.
[2016-12-11 01:29] VITALS: BP 102/52
--- NOTE | 2016-12-11 05:14 | NUR ---
PT TURNED AND REPOSITIONED, ORAL CARE DONE. SLIGHT AGITATION AFTER REPOSITIONING HIM. ATIVAN 1 MG IV GIVEN. PT QUIETS DOWN AND RESTING SOUNDLY. WILL CONT TO MONITOR.
[2016-12-11 05:44] VITALS: BP 122/62
--- NOTE | 2016-12-11 06:38 | NUR ---
PT WITHOUT PULSE OR RESPIRATION. WILL CALL [facility] AT THIS TIME.
--- NOTE | 2016-12-11 06:45 | NUR ---
SPOKE WITH [facility], STATES WILL BE HERE IN 1 HOUR TO ASSIST WITH CARE OF PT. SPOUSE, MARYANA ALSO NOTIFIED AT THIS TIME. STATES HER BROTHER AND HIS WILL BE DRIVING HER.
--- NOTE | 2016-12-11 07:19 | NUR ---
DR PHAM HERE, PRONOUNCES TIME OF AT 07:17. WILL CALL JAMEEL
--- NOTE | 2016-12-11 07:25 | NUR ---
SPOKE WITH TARIK BEYER AT [facility]. STATES PT IS DECLINED FOR DONATION D/T AGE. REF NO. [id number]
--- NOTE | 2016-12-11 09:29 | NUR ---
[facility] PICKED UP BODY
--- NOTE | 2016-12-12 16:53 | NUR ---
Per CMS protocol, restraint report logged into data base.
== END 2016-12-11 09:30 | DRG 951 ==
LOC: D.ICU 16:16 → D.M2 21:31
PROVIDERS: ADMIT Legal Medicine
DX: Z51.5 Encounter for palliative care (principal)